=== PATIENT | female | born 1985 | race Caucasian/White ===

== ENCOUNTER 2021-04-06 06:55 | Inpatient (IN) | payer MEDICAID ==
[~2021-04-06] VITALS: Ht 165.1 cm; Wt 124.0 kg
[~2021-04-06 06:55] MED LIST: ATEN50TA; CHLO25TA; CLON0.5T PO; COLACE; SERT25TA84; TRAZ300T13; ZIPR60CA24; ZOFRAN
[2021-04-06] MEDS ORDERED: SODIUM CHLORIDE 0.9% 1,000 ML IV ONE ×2 (08:00)
[2021-04-06] MEDS ORDERED: CLINDAMYCIN 600MG IV 50 ML IV ONE (08:00)
[2021-04-06] MEDS ORDERED: cefTRIAXone 1GM/50ML D5W 50 ML IV ONE (08:00)
[2021-04-06 09:44] LABS: Urine WBC None Seen /hpf (0 - 5)
[2021-04-06 10:07] LABS: Urine Bacteria NONE SEEN /hpf (None Seen); Urine Blood Negative /uL (Negative); Urine Mucus FEW (None Seen); Urine Specific Gravity 1.019 (1.001-1.035)
[2021-04-06] MEDS ORDERED: PIPERACILLIN-TAZOB 3.375GM 100 ML IV ONE (12:15)
[2021-04-06] MEDS ORDERED: ONDANSETRON HCL 4 MG/2 ML VIAL IV ONE (13:15)
[2021-04-06 13:17] LABS: Basophils # (auto) 0 10 ^3/uL (0-0.2); Basophils % (auto) 0.5 % (0.0-2.0); Eosinophils # (auto) 0.3 10 ^3/uL (0-0.8); Eosinophils % (auto) 4.2 % (0.0-7.0); Hematocrit 29.6 % (36.0-46.0); Hemoglobin 9.9 g/dL (12.2-16.2); Lymphocytes # (auto) 1.3 10 ^3/uL (0.4-5.4); Lymphocytes % (auto) 18.4 % (10.0-50.0); Mean Corpuscular Hgb Conc. 33.3 g/dL (32.0-36.0); Mean Corpuscular Volume 87.1 fL (80.0-100.0); Monocytes # (auto) 0.7 10 ^3/uL (0-1.3); Monocytes % (auto) 10.1 % (0.0-12.0); Neutrophils # (auto) 4.6 10 ^3/uL (1.6-8.6); Neutrophils % (auto) 66.8 % (37.0-80.0); Nucleated Red Blood Cells % 0.1 %; Platelet Count (auto) 258 10^3/uL (140-450); Red Cell Distribution Width 16.6 % (11.8-14.3); White Blood Cell 6.9 10^3/uL (4.4-10.8)
[2021-04-06] MEDS ORDERED: MORPHINE SULF INJ 2 MG/ML SYRINGE 1ML ONE (13:20)
[2021-04-06] MEDS ORDERED: levoFLOXacin 500MG 100 ML IV ONE ×2 (13:21→13:30)
[2021-04-06] MEDS ORDERED: MORPHINE SULFATE 4 MG/ML SYR/VIAL IV ONE (13:30)
[2021-04-06 13:35] LABS: INR 1.1 (0.9-1.15); Partial Thromboplastin Time 27.9 sec (23.0-31.2)
[2021-04-06] MEDS ORDERED: PIPERACILLIN-TAZOB 3.375GM 100 ML IV SCH (14:00)
[2021-04-06 14:11] LABS: Potassium 3.9 mmol/L (3.5-5.1)
[2021-04-06 14:20] LABS: Albumin 2.9 g/dL (3.4-5.0); BUN/Creatinine Ratio 20.3; Bilirubin, Total 0.1 mg/dL (0.2-1.0); Calcium 8.7 mg/dL (8.5-10.1); Total Protein 6.5 g/dL (6.4-8.2)
[2021-04-06] MEDS ORDERED: IOHEXOL 300 MG/ML 100ML BOTTLE IJ ONE (14:36)
[2021-04-06] MEDS ORDERED: diphenhdrAMINE HCL 50 MG/1 ML VL IV ONE (15:00)
[2021-04-06] MEDS ORDERED: LORazepam 2MG/ML-1ML VIAL IV ONE ×2 (15:00→16:45)
[2021-04-06] MEDS ORDERED: MORPHINE SULF INJ 2 MG/ML SYRINGE 1ML IV PRN (16:00)
[2021-04-06] MEDS ORDERED: LORazepam 0.5 MG TAB PO PRN (16:00)
[2021-04-06] MEDS ORDERED: ACETAMINOPHEN 500 MG TAB PO PRN (16:00)
[2021-04-06] MEDS ORDERED: traMADol HCL 50 MG TAB PO PRN (16:00)
[2021-04-06] MEDS ORDERED: NITROGLYCERIN 0.4 MG SL TAB SL PRN (16:00)
[2021-04-06] MEDS: SODIUM CHLORIDE 0.9% 1,000 ML IV SCH (16:19)
[2021-04-06] MEDS ORDERED: LORazepam 2MG/ML-1ML VIAL ONE (16:35)
[2021-04-06] MEDS: ONDANSETRON HCL 4 MG/2 ML VIAL IV PRN (17:46)
[2021-04-06 22:00] VITALS: BP 138/65
[2021-04-06] MEDS: diphenhdrAMINE HCL 50 MG/1 ML VL IV PRN (22:01)
[2021-04-06] MEDS: CLINDAMYCIN 600MG IV 50 ML IV SCH (22:03)
[2021-04-06] MEDS: FAMOTIDINE 20 MG TAB PO SCH (22:03)
[2021-04-06] MEDS ORDERED: HYDROcodone-ACET 10/325MG TAB PO PRN ×2 (23:00→23:45)
[2021-04-07] MEDS ORDERED: diphenhdrAMINE HCL 50 MG/1 ML VL IV ONE
[2021-04-07] MEDS: MORPHINE SULF INJ 2 MG/ML SYRINGE 1ML IV PRN ×3 (00:03→10:24)
[2021-04-07] MEDS ORDERED: VALP250S19 PO (02:05)
[2021-04-07] MEDS ORDERED: HYDR-4902 PO (02:05)
[2021-04-07] MEDS ORDERED: DOXY100C2 PO (02:05)
[2021-04-07] MEDS ORDERED: QUET200T44 PO (02:05)
[2021-04-07] MEDS ORDERED: APIX5TAB PO (02:05)
[2021-04-07] MEDS ORDERED: PROP60CA34 PO (02:05)
[2021-04-07] MEDS ORDERED: BUSP15TA60 PO (02:05)
[2021-04-07] MEDS ORDERED: QUET400T12 PO (02:06)
[2021-04-07] MEDS ORDERED: BUDE1AER4 IN (02:06)
[2021-04-07] MEDS ORDERED: BACI-5 EX (02:06)
[2021-04-07] MEDS ORDERED: POLY33504 PO (02:06)
[2021-04-07] MEDS: SODIUM CHLORIDE 0.9% 1,000 ML IV SCH ×3 (02:13→22:00)
[2021-04-07] MEDS ORDERED: GABA-339 PO (02:36)
[2021-04-07] MEDS: diphenhdrAMINE HCL 50 MG/1 ML VL IV PRN ×4 (04:00→22:01)
[2021-04-07 05:00] VITALS: BP 119/62
[2021-04-07 05:08] LABS: Basophils # (auto) 0 10 ^3/uL (0-0.2); Basophils % (auto) 0.5 % (0.0-2.0); Eosinophils # (auto) 0.3 10 ^3/uL (0-0.8); Eosinophils % (auto) 4.3 % (0.0-7.0); Hematocrit 28.1 % (36.0-46.0); Hemoglobin 9.1 g/dL (12.2-16.2); Lymphocytes # (auto) 1.2 10 ^3/uL (0.4-5.4); Lymphocytes % (auto) 18.9 % (10.0-50.0); Mean Corpuscular Hemoglobin 28.3 pg (28.0-32.0); Mean Corpuscular Hgb Conc. 32.5 g/dL (32.0-36.0); Monocytes # (auto) 0.8 10 ^3/uL (0-1.3); Monocytes % (auto) 12.7 % (0.0-12.0); Neutrophils # (auto) 3.9 10 ^3/uL (1.6-8.6); Neutrophils % (auto) 63.6 % (37.0-80.0); Nucleated Red Blood Cells % 0.1 %; Platelet Count (auto) 237 10^3/uL (140-450); Red Blood Cells 3.23 10^6/uL (4.0-5.20); Red Cell Distribution Width 16.4 % (11.8-14.3); White Blood Cell 6.2 10^3/uL (4.4-10.8)
[2021-04-07 05:26] LABS: Albumin 2.9 g/dL (3.4-5.0); Calcium 8.2 mg/dL (8.5-10.1); Potassium 3.8 mmol/L (3.5-5.1)
[2021-04-07 05:30] LABS: BUN/Creatinine Ratio 23.8; Bilirubin, Total 0.1 mg/dL (0.2-1.0); Total Protein 5.9 g/dL (6.4-8.2)
[2021-04-07] MEDS: CLINDAMYCIN 600MG IV 50 ML IV SCH ×3 (05:54→22:01)
[2021-04-07 09:00] VITALS: BP 109/68
[2021-04-07] MEDS: FAMOTIDINE 20 MG TAB PO SCH ×2 (10:00→22:01)
[2021-04-07] MEDS: levoFLOXacin 500MG 100 ML IV SCH (10:25)
[2021-04-07 12:58] LABS: Alcohol, Urine < 3.0 mg/dL (0-10); Amphetamine Screen, Urine NEGATIVE (NEGATIVE); Barbiturate Scree,Urine NEGATIVE (NEGATIVE); Benzodiazephine Screen, Urine NEGATIVE (NEGATIVE); Cannabinoid Screen, Urine NEGATIVE (NEGATIVE); Cocaine Screen, Urine NEGATIVE (NEGATIVE); Opiate Scree,Urine POSITIVE (NEGATIVE); Phencyclidine Screen, Urine NEGATIVE (NEGATIVE)
[2021-04-07 13:00] VITALS: BP 123/69
[2021-04-07] MEDS: HYDROmorphone HCL 2 MG/ML VL IV PRN ×2 (13:28→19:45)
[2021-04-07 17:00] VITALS: BP 119/62
[2021-04-07 22:00] VITALS: BP 120/73
[2021-04-07] MEDS: MUPIROCIN 2% OINT 15gm or 22gm EACHNOSTRI SCH (22:00)
[2021-04-08] MEDS: HYDROmorphone HCL 2 MG/ML VL IV PRN ×5 (03:04→23:57)
[2021-04-08] MEDS: diphenhdrAMINE HCL 50 MG/1 ML VL IV PRN ×4 (04:58→23:58)
[2021-04-08 05:00] VITALS: BP 135/72
[2021-04-08] MEDS: SODIUM CHLORIDE 0.9% 1,000 ML IV SCH ×2 (05:05→17:37)
[2021-04-08] MEDS: CLINDAMYCIN 600MG IV 50 ML IV SCH ×3 (06:06→21:34)
[2021-04-08 09:00] VITALS: BP 132/83
[2021-04-08] MEDS: levoFLOXacin 500MG 100 ML IV SCH (09:16)
[2021-04-08] MEDS: FAMOTIDINE 20 MG TAB PO SCH ×2 (09:19→21:36)
[2021-04-08] MEDS: MUPIROCIN 2% OINT 15gm or 22gm EACHNOSTRI SCH ×2 (09:26→21:36)
[2021-04-08] MEDS ORDERED: OME20GT PO (09:31)
[2021-04-08] MEDS: ONDANSETRON HCL 4 MG/2 ML VIAL IV PRN (11:32)
[2021-04-08] MEDS ORDERED: APIXABAN 5 MG TAB PO ONE (11:45)
[2021-04-08 13:00] VITALS: BP 116/76
[2021-04-08] MEDS: QUEtiapine FUMARATE 100 MG TAB PO SCH ×2 (13:02→21:35)
[2021-04-08] MEDS: busPIRone HCL 10 MG TAB PO SCH ×2 (14:27→21:35)
[2021-04-08 17:00] VITALS: BP 131/75
[2021-04-08] MEDS: VALPROIC ACID 250 MG/5 ML ORAL SOLN PO SCH (21:34)
[2021-04-08] MEDS: DOCUSATE SOD 100 MG CAP PO SCH (21:35)
[2021-04-08] MEDS: APIXABAN 5 MG TAB PO SCH (21:36)
[2021-04-08 22:00] VITALS: BP 147/75
[2021-04-09] MEDS: SODIUM CHLORIDE 0.9% 1,000 ML IV SCH ×2 (04:05→13:53)
[2021-04-09] MEDS: HYDROmorphone HCL 2 MG/ML VL IV PRN ×5 (04:43→22:19)
[2021-04-09 05:00] VITALS: BP 144/67
[2021-04-09] MEDS: CLINDAMYCIN 600MG IV 50 ML IV SCH ×3 (05:50→21:45)
[2021-04-09] MEDS: busPIRone HCL 10 MG TAB PO SCH ×3 (05:50→21:46)
[2021-04-09] MEDS: diphenhdrAMINE HCL 50 MG/1 ML VL IV PRN ×3 (05:50→19:29)
[2021-04-09] MEDS: levoFLOXacin 500MG 100 ML IV SCH (09:46)
[2021-04-09] MEDS: DOCUSATE SOD 100 MG CAP PO SCH ×2 (09:46→21:46)
[2021-04-09] MEDS: MUPIROCIN 2% OINT 15gm or 22gm EACHNOSTRI SCH ×2 (09:46→21:47)
[2021-04-09] MEDS: VALPROIC ACID 250 MG/5 ML ORAL SOLN PO SCH ×2 (09:47→21:45)
[2021-04-09] MEDS: QUEtiapine FUMARATE 100 MG TAB PO SCH ×2 (09:47→21:45)
[2021-04-09] MEDS: FAMOTIDINE 20 MG TAB PO SCH ×2 (09:47→21:46)
[2021-04-09] MEDS: APIXABAN 5 MG TAB PO SCH ×2 (09:47→21:46)
[2021-04-09 13:00] VITALS: BP 135/66
[2021-04-09 17:00] VITALS: BP 141/88
[2021-04-09 22:00] VITALS: BP 117/66
[2021-04-10] MEDS: SODIUM CHLORIDE 0.9% 1,000 ML IV SCH ×2 (00:07→10:00)
[2021-04-10] MEDS: diphenhdrAMINE HCL 50 MG/1 ML VL IV PRN ×2 (01:28→08:10)
[2021-04-10] MEDS: HYDROmorphone HCL 2 MG/ML VL IV PRN ×3 (02:25→10:35)
[2021-04-10] MEDS ORDERED: TEMAZEPAM 15 MG CAP PO ONE (03:45)
[2021-04-10 05:00] VITALS: BP 118/68
[2021-04-10] MEDS: CLINDAMYCIN 600MG IV 50 ML IV SCH (06:03)
[2021-04-10] MEDS: busPIRone HCL 10 MG TAB PO SCH (06:03)
[2021-04-10 09:00] VITALS: BP 129/72
[2021-04-10] MEDS: DOCUSATE SOD 100 MG CAP PO SCH (10:34)
[2021-04-10] MEDS: VALPROIC ACID 250 MG/5 ML ORAL SOLN PO SCH (10:34)
[2021-04-10] MEDS: APIXABAN 5 MG TAB PO SCH (10:34)
[2021-04-10] MEDS: MUPIROCIN 2% OINT 15gm or 22gm EACHNOSTRI SCH (10:34)
[2021-04-10] MEDS: levoFLOXacin 500MG 100 ML IV SCH (10:34)
[2021-04-10] MEDS: QUEtiapine FUMARATE 100 MG TAB PO SCH (10:35)
[2021-04-10] MEDS: FAMOTIDINE 20 MG TAB PO SCH (10:35)
[2021-04-10 13:00] VITALS: BP 111/66
[2021-04-10 13:42] VITALS: BP 111/66
== END 2021-04-10 14:08 | disposition home or self-care (01) | DRG 383 ==
LOC: ER 06:55 → TELE 15:56 → TELE-WESTW 19:55
PROVIDERS: ADMIT Internal Medicine; ATTEND Family Medicine
PROC: 06HY33Z Insertion of Infusion Device into Lower Vein, Percutaneous Approach (ICD-10-PCS; principal; 2021-04-06)
DX: L03.114 Cellulitis of left upper limb (principal); E66.01 Morbid (severe) obesity due to excess calories; F25.9 Schizoaffective disorder, unspecified; F31.9 Bipolar disorder, unspecified; L02.414 Cutaneous abscess of left upper limb; D64.9 Anemia, unspecified; F43.10 Post-traumatic stress disorder, unspecified; Z91.5 Personal history of self-harm; Z68.41 Body mass index [BMI] 40.0-44.9, adult; Z20.822 Contact with and (suspected) exposure to COVID-19; Z88.1 Allergy status to other antibiotic agents; Z88.8 Allergy status to other drugs, medicaments and biological substances; Z82.49 Family history of ischemic heart disease and other diseases of the circulatory system; Z82.5 Family history of asthma and other chronic lower respiratory diseases; F41.9 Anxiety disorder, unspecified; Z83.3 Family history of diabetes mellitus; Z81.1 Family history of alcohol abuse and dependence; F17.210 Nicotine dependence, cigarettes, uncomplicated; Z79.01 Long term (current) use of anticoagulants; Z82.0 Family history of epilepsy and other diseases of the nervous system; Z86.718 Personal history of other venous thrombosis and embolism; F60.3 Borderline personality disorder; G47.00 Insomnia, unspecified; Z90.49 Acquired absence of other specified parts of digestive tract; Z71.6 Tobacco abuse counseling; B95.62 Methicillin resistant Staphylococcus aureus infection as the cause of diseases classified elsewhere
CPT/HCPCS: 36415; 36556; 71045; 73201; 74018; 76881; 80053; 80307; 81001; 83605; 85025; 85610; 85652; 85730; 87040; 87081; 87426; 96361; 96365; 96375; G0378; J0696; J1956; J2405; J3490

== ENCOUNTER 2021-04-24 21:30 | Emergency (ER) | payer MEDICAID ==
[~2021-04-24] VITALS: Ht 165.1 cm; Wt 127.9 kg
[~2021-04-24 21:30] MED LIST changes: +APIX5TAB PO; -ATEN50TA; +BACI-5 EX; +BUDE1AER4 IN; +BUSP15TA60 PO; -CHLO25TA; +DOXY100C2 PO; +GABA-339 PO; +HYDR-4902 PO; +OME20GT PO; +POLY33504 PO; +PROP60CA34 PO; +QUET200T44 PO; +QUET400T12 PO; -SERT25TA84; +VALP250S19 PO; -ZIPR60CA24; -ZOFRAN
[2021-04-25] MEDS ORDERED: HYDROcodone-ACET 7.5/325MG TAB PO ONE (03:00)
[2021-04-25 03:56] LABS: Basophils # (auto) 0.1 10 ^3/uL (0-0.2); Basophils % (auto) 1.1 % (0.0-2.0); Eosinophils # (auto) 0.2 10 ^3/uL (0-0.8); Eosinophils % (auto) 3.1 % (0.0-7.0); Hematocrit 34.3 % (36.0-46.0); Hemoglobin 11.5 g/dL (12.2-16.2); Lymphocytes # (auto) 1.2 10 ^3/uL (0.4-5.4); Lymphocytes % (auto) 17.1 % (10.0-50.0); Mean Corpuscular Hemoglobin 28.7 pg (28.0-32.0); Mean Corpuscular Hgb Conc. 33.4 g/dL (32.0-36.0); Monocytes # (auto) 0.5 10 ^3/uL (0-1.3); Monocytes % (auto) 6.8 % (0.0-12.0); Neutrophils # (auto) 5.1 10 ^3/uL (1.6-8.6); Neutrophils % (auto) 71.9 % (37.0-80.0); Platelet Count (auto) 337 10^3/uL (140-450); Red Blood Cells 3.99 10^6/uL (4.0-5.20); Red Cell Distribution Width 16.2 % (11.8-14.3); White Blood Cell 7.1 10^3/uL (4.4-10.8)
[2021-04-25 04:05] LABS: INR 0.92 (0.9-1.15)
[2021-04-25 04:13] LABS: Albumin 3.8 g/dL (3.4-5.0); Magnesium 2.4 mg/dL (1.6-2.6); Potassium 4.7 mmol/L (3.5-5.1)
[2021-04-25 04:17] LABS: BUN/Creatinine Ratio 31.5; Bilirubin, Total 0.2 mg/dL (0.2-1.0); Total Protein 7.8 g/dL (6.4-8.2)
[2021-04-25] MEDS ORDERED: VANCOMYCIN 1GM/250ML 250 ML IV ONE (06:45)
[2021-04-25] MEDS ORDERED: ONDANSETRON HCL 4 MG/2 ML VIAL IV ONE ×2 (06:45→14:15)
[2021-04-25] MEDS ORDERED: MORPHINE SULFATE 4 MG/ML SYR/VIAL IV ONE ×2 (08:00→14:15)
[2021-04-25 08:09] LABS: Urine Bacteria NONE SEEN /hpf (None Seen); Urine Blood Negative /uL (Negative); Urine Specific Gravity 1.006 (1.001-1.035); Urine WBC <1 /hpf (0 - 5)
[2021-04-25] MEDS ORDERED: DIVA500T2 PO (08:55)
[2021-04-25] MEDS ORDERED: diphenhdrAMINE HCL 50 MG/1 ML VL IV ONE (09:45)
[2021-04-25] MEDS ORDERED: LORazepam 2MG/ML-1ML VIAL IV ONE (09:45)
[2021-04-25 17:04] VITALS: BP 126/73
== END 2021-04-25 17:37 | disposition short-term general hospital (02) ==
LOC: ER 21:31
DX: L98.499 Non-pressure chronic ulcer of skin of other sites with unspecified severity (principal); L03.114 Cellulitis of left upper limb; F17.210 Nicotine dependence, cigarettes, uncomplicated; Z79.899 Other long term (current) drug therapy; Z88.1 Allergy status to other antibiotic agents; Z88.8 Allergy status to other drugs, medicaments and biological substances; Z20.822 Contact with and (suspected) exposure to COVID-19
CPT/HCPCS: 36415; 36556; 73200; 80053; 81001; 83605; 83735; 85025; 85610; 87040; 87426; 96365; 96366; 96375; 96376; 99285; J1200; J2060; J2270; J2405; J3370

== ENCOUNTER 2021-08-21 22:22 | Emergency (ER) | payer MEDICAID ==
[~2021-08-21] VITALS: Ht 165.1 cm; Wt 149.7 kg
[~2021-08-21 22:22] MED LIST changes: +DIVA500T2 PO; -QUET200T44 PO; +QUET200T45 PO; -QUET400T12 PO; +QUET400T13 PO
[2021-08-21 23:04] VITALS: BP 121/73
== END 2021-08-21 23:20 | disposition left against medical advice (07) ==
LOC: ER 22:24
DX: R10.31 Right lower quadrant pain (principal); Z53.21 Procedure and treatment not carried out due to patient leaving prior to being seen by health care provider

== ENCOUNTER 2021-11-05 21:09 | Emergency (ER) | payer MEDICAID ==
[~2021-11-05] VITALS: Ht 165.1 cm; Wt 149.7 kg
[2021-11-05 21:09] VITALS: BP 155/70
== END 2021-11-06 01:42 | disposition left against medical advice (07) ==
LOC: ER 21:10
DX: T18.8XXA Foreign body in other parts of alimentary tract, initial encounter (principal); Z53.21 Procedure and treatment not carried out due to patient leaving prior to being seen by health care provider

== ENCOUNTER 2021-11-10 19:13 | Emergency (ER) | payer MEDICAID ==
[~2021-11-10] VITALS: Ht 162.6 cm; Wt 136.1 kg
[2021-11-10] MEDS ORDERED: MORPHINE SULFATE 4 MG/ML SYR/VIAL IV ONE (21:30)
[2021-11-10] MEDS ORDERED: ONDANSETRON HCL 4 MG/2 ML VIAL IV ONE (21:30)
[2021-11-10 22:56] LABS: Basophils # (auto) 0.1 10 ^3/uL (0-0.2); Basophils % (auto) 0.8 % (0.0-2.0); Eosinophils # (auto) 0.4 10 ^3/uL (0-0.8); Eosinophils % (auto) 4.7 % (0.0-7.0); Hematocrit 33.2 % (36.0-46.0); Hemoglobin 11.1 g/dL (12.2-16.2); Lymphocytes # (auto) 1.1 10 ^3/uL (0.4-5.4); Lymphocytes % (auto) 13.1 % (10.0-50.0); Mean Corpuscular Hemoglobin 30.2 pg (28.0-32.0); Mean Corpuscular Hgb Conc. 33.6 g/dL (32.0-36.0); Mean Corpuscular Volume 89.9 fL (80.0-100.0); Monocytes # (auto) 0.6 10 ^3/uL (0-1.3); Monocytes % (auto) 7.2 % (0.0-12.0); Neutrophils # (auto) 6.2 10 ^3/uL (1.6-8.6); Neutrophils % (auto) 74.2 % (37.0-80.0); Nucleated Red Blood Cells % 0.1 %; Red Blood Cells 3.69 10^6/uL (4.0-5.20); White Blood Cell 8.4 10^3/uL (4.4-10.8)
[2021-11-10 23:03] LABS: Albumin 3.8 g/dL (3.4-5.0); Calcium 8.9 mg/dL (8.5-10.1); Potassium 3.8 mmol/L (3.5-5.1)
[2021-11-10 23:08] LABS: Bilirubin, Total 0.2 mg/dL (0.2-1.0); Total Protein 7.9 g/dL (6.4-8.2)
[2021-11-11 00:13] LABS: INR 0.95 (0.9-1.15)
[2021-11-11] MEDS ORDERED: ONDANSETRON HCL 4 MG/2 ML VIAL IV ONE (04:45)
[2021-11-11] MEDS ORDERED: fentaNYL CITRATE 100 MCG/2 ML VL IV ONE (04:45)
[2021-11-11 05:59] VITALS: BP 164/86
== END 2021-11-11 06:28 | disposition short-term general hospital (02) ==
LOC: EDBD 19:13 → ER 19:13
DX: T18.9XXA Foreign body of alimentary tract, part unspecified, initial encounter (principal); F32.9 Major depressive disorder, single episode, unspecified; F41.9 Anxiety disorder, unspecified; J45.909 Unspecified asthma, uncomplicated; M54.2 Cervicalgia; R94.31 Abnormal electrocardiogram [ECG] [EKG]; Y08.89XA Assault by other specified means, initial encounter; Y93.89 Activity, other specified; Y92.89 Other specified places as the place of occurrence of the external cause; Y99.8 Other external cause status
CPT/HCPCS: 36415; 70490; 71045; 74176; 80053; 83605; 83690; 83735; 84702; 85025; 85610; 87426; 93005; 96374; 96375; 96376; 99285; J2270; J2405; J3010

== ENCOUNTER 2022-01-02 02:20 | Emergency (ER) | payer MEDICAID ==
[~2022-01-02] VITALS: Ht 165.1 cm; Wt 127.0 kg
[2022-01-02 04:02] LABS: Hemoglobin 12.9 g/dL (12.2-16.2); Red Blood Cells 4.37 10^6/uL (4.0-5.20); Red Cell Distribution Width 15.6 % (11.8-14.3); White Blood Cell 10.3 10^3/uL (4.4-10.8)
[2022-01-02 04:05] LABS: Basophils # (auto) 0.1 10 ^3/uL (0-0.2); Basophils % (auto) 0.8 % (0.0-2.0); Eosinophils # (auto) 0.2 10 ^3/uL (0-0.8); Eosinophils % (auto) 1.5 % (0.0-7.0); Hematocrit 39.2 % (36.0-46.0); Lymphocytes # (auto) 1.6 10 ^3/uL (0.4-5.4); Lymphocytes % (auto) 15.7 % (10.0-50.0); Mean Corpuscular Hemoglobin 29.6 pg (28.0-32.0); Mean Corpuscular Volume 89.6 fL (80.0-100.0); Monocytes # (auto) 0.6 10 ^3/uL (0-1.3); Monocytes % (auto) 5.9 % (0.0-12.0); Neutrophils # (auto) 7.8 10 ^3/uL (1.6-8.6); Neutrophils % (auto) 76.1 % (37.0-80.0); Nucleated Red Blood Cells % 0.1 %
[2022-01-02 04:13] LABS: Acetaminophen < 2.0 ug/mL (10-30); Salicylate 2.9 mg/dL (2.8-20.0)
[2022-01-02 04:14] LABS: Albumin 3.8 g/dL (3.4-5.0); BUN/Creatinine Ratio 24.6; Calcium 9.3 mg/dL (8.5-10.1); Magnesium 2.1 mg/dL (1.6-2.6)
[2022-01-02 04:17] LABS: Bilirubin, Total 0.2 mg/dL (0.2-1.0); Total Protein 7.9 g/dL (6.4-8.2)
[2022-01-02] MEDS ORDERED: LACTULOSE 20Gm/30ML SOLN PO ONE (06:15)
[2022-01-02 08:08] LABS: Urine Bacteria FEW /hpf (None Seen); Urine Blood Negative /uL (Negative); Urine Mucus FEW (None Seen); Urine Specific Gravity 1.021 (1.001-1.035); Urine WBC 1 /hpf (0 - 5)
[2022-01-02 12:03] LABS: Valproic Acid (Depakene) 55 ug/mL (50-100)
[2022-01-02 12:16] LABS: Acetaminophen < 2.0 ug/mL (10-30)
[2022-01-02 14:00] VITALS: BP 119/93
== END 2022-01-02 14:28 | disposition home or self-care (01) ==
LOC: EDBD 02:20 → ER 02:20
DX: T39.312A Poisoning by propionic acid derivatives, intentional self-harm, initial encounter (principal); R45.851 Suicidal ideations; K72.90 Hepatic failure, unspecified without coma; F17.210 Nicotine dependence, cigarettes, uncomplicated; J45.909 Unspecified asthma, uncomplicated; F32.9 Major depressive disorder, single episode, unspecified; Y92.89 Other specified places as the place of occurrence of the external cause
CPT/HCPCS: 36415; 71045; 80053; 80164; 80320; 80329; 81001; 82140; 83735; 85025; 93005

== ENCOUNTER 2022-01-24 04:28 | Emergency (ER) | payer MEDICAID ==
[~2022-01-24] VITALS: Ht 165.1 cm; Wt 158.8 kg
[2022-01-24 05:00] VITALS: BP 151/90
[2022-01-24 06:17] LABS: Urine Bacteria NONE SEEN /hpf (None Seen); Urine Blood Negative /uL (Negative); Urine Specific Gravity 1.018 (1.001-1.035); Urine WBC 6 /hpf (0 - 5)
== END 2022-01-24 07:02 | disposition left against medical advice (07) ==
LOC: ER 04:28
DX: R10.12 Left upper quadrant pain (principal); R10.11 Right upper quadrant pain; Z53.21 Procedure and treatment not carried out due to patient leaving prior to being seen by health care provider
CPT/HCPCS: 36415; 81001

== ENCOUNTER 2022-01-27 22:50 | Emergency (ER) | payer MEDICAID ==
[~2022-01-27] VITALS: Ht 165.1 cm; Wt 154.2 kg
[2022-01-28 00:58] LABS: Basophils # (auto) 0.1 10 ^3/uL (0-0.2); Basophils % (auto) 0.5 % (0.0-2.0); Eosinophils # (auto) 0.3 10 ^3/uL (0-0.8); Eosinophils % (auto) 2.3 % (0.0-7.0); Hematocrit 31.7 % (36.0-46.0); Hemoglobin 10.4 g/dL (12.2-16.2); Lymphocytes # (auto) 1.7 10 ^3/uL (0.4-5.4); Lymphocytes % (auto) 14.7 % (10.0-50.0); Mean Corpuscular Hemoglobin 29.6 pg (28.0-32.0); Mean Corpuscular Hgb Conc. 32.6 g/dL (32.0-36.0); Mean Corpuscular Volume 90.6 fL (80.0-100.0); Monocytes # (auto) 0.7 10 ^3/uL (0-1.3); Monocytes % (auto) 6.2 % (0.0-12.0); Neutrophils % (auto) 76.3 % (37.0-80.0); Nucleated Red Blood Cells % 0.1 %; Red Cell Distribution Width 15.6 % (11.8-14.3); White Blood Cell 11.7 10^3/uL (4.4-10.8)
[2022-01-28] MEDS ORDERED: NALOXONE HCL 1MG/ML 2ML SYRINGE ONE (01:04)
[2022-01-28 01:23] LABS: Alanine Aminotransferase 27 U/L (13-56); Albumin 3.3 g/dL (3.4-5.0); Anion Gap 5 (5-15); Aspartate Aminotransferase 21 U/L (15-37); Blood Alcohol < 3.0 mg/dL (0-5); Blood Urea Nitrogen 20 mg/dL (7-18); Calcium 8.5 mg/dL (8.5-10.1); Carbon Dioxide 26 mmol/L (21-32); Chloride 110 mmol/L (98-107); GFR African American 125 mL/min; GFR Non-African American 104 mL/min; Glucose 95 mg/dL (74-106); Lipase 42 U/L (73-393); Magnesium 2.2 mg/dL (1.6-2.6); Potassium 3.9 mmol/L (3.5-5.1); Sodium 141 mmol/L (136-145)
[2022-01-28 01:25] LABS: Alkaline Phosphatase 73 U/L (45-117); Bilirubin, Total 0.5 mg/dL (0.2-1.0); Total Protein 6.9 g/dL (6.4-8.2)
[2022-01-28 01:27] LABS: Acetaminophen < 2.0 ug/mL (10-30); Salicylate < 1.7 mg/dL (2.8-20.0)
[2022-01-28 04:45] VITALS: BP 102/50
== END 2022-01-28 04:55 | disposition home or self-care (01) ==
LOC: ER 22:50
DX: F11.10 Opioid abuse, uncomplicated (principal); E66.9 Obesity, unspecified; F17.210 Nicotine dependence, cigarettes, uncomplicated; F12.10 Cannabis abuse, uncomplicated; J45.909 Unspecified asthma, uncomplicated; F32.9 Major depressive disorder, single episode, unspecified; Z68.43 Body mass index [BMI] 50.0-59.9, adult
CPT/HCPCS: 36415; 80053; 80320; 80329; 83605; 83690; 83735; 85025; 93005; 99285; J2310

== ENCOUNTER 2022-01-28 14:21 | Emergency (ER) | payer MEDICAID ==
[~2022-01-28] VITALS: Ht 165.1 cm; Wt 156.0 kg
[2022-01-28 18:44] LABS: Basophils # (auto) 0.1 10 ^3/uL (0-0.2); Basophils % (auto) 0.7 % (0.0-2.0); Eosinophils # (auto) 0.3 10 ^3/uL (0-0.8); Eosinophils % (auto) 2.6 % (0.0-7.0); Hematocrit 34.6 % (36.0-46.0); Hemoglobin 11.3 g/dL (12.2-16.2); Lymphocytes # (auto) 1.2 10 ^3/uL (0.4-5.4); Lymphocytes % (auto) 9.7 % (10.0-50.0); Mean Corpuscular Hemoglobin 30.1 pg (28.0-32.0); Mean Corpuscular Hgb Conc. 32.8 g/dL (32.0-36.0); Mean Corpuscular Volume 91.6 fL (80.0-100.0); Monocytes # (auto) 0.8 10 ^3/uL (0-1.3); Monocytes % (auto) 6.1 % (0.0-12.0); Neutrophils # (auto) 10.2 10 ^3/uL (1.6-8.6); Neutrophils % (auto) 80.9 % (37.0-80.0); Nucleated Red Blood Cells % 0.1 %; Red Blood Cells 3.77 10^6/uL (4.0-5.20); Red Cell Distribution Width 15.6 % (11.8-14.3); White Blood Cell 12.6 10^3/uL (4.4-10.8)
[2022-01-28 18:59] LABS: Potassium 4.5 mmol/L (3.5-5.1)
[2022-01-28 19:03] LABS: Albumin 3.7 g/dL (3.4-5.0); BUN/Creatinine Ratio 25.3; Calcium 8.9 mg/dL (8.5-10.1); Salicylate 1.8 mg/dL (2.8-20.0)
[2022-01-28 19:06] LABS: Bilirubin, Total 0.3 mg/dL (0.2-1.0); Total Protein 7.5 g/dL (6.4-8.2)
[2022-01-28 19:31] LABS: Acetaminophen < 2.0 ug/mL (10-30)
[2022-01-29 05:59] LABS: Urine Bacteria FEW /hpf (None Seen); Urine Blood Negative /uL (Negative); Urine Mucus FEW (None Seen); Urine Specific Gravity 1.016 (1.001-1.035); Urine WBC 15 /hpf (0 - 5)
[2022-01-29 06:30] LABS: Alcohol, Urine < 3.0 mg/dL (0-10); Amphetamine Screen, Urine NEGATIVE (NEGATIVE); Cannabinoid Screen, Urine NEGATIVE (NEGATIVE)
[2022-01-29 06:40] LABS: Barbiturate Scree,Urine NEGATIVE (NEGATIVE); Benzodiazephine Screen, Urine POSITIVE (NEGATIVE); Cocaine Screen, Urine NEGATIVE (NEGATIVE); Opiate Scree,Urine NEGATIVE (NEGATIVE); Phencyclidine Screen, Urine NEGATIVE (NEGATIVE)
[2022-01-29 08:30] VITALS: BP 110/52
== END 2022-01-29 10:39 | disposition left against medical advice (07) ==
LOC: ER 14:21
DX: T50.992A Poisoning by other drugs, medicaments and biological substances, intentional self-harm, initial encounter (principal); R10.9 Unspecified abdominal pain; R45.87 Impulsiveness; F17.210 Nicotine dependence, cigarettes, uncomplicated; F12.10 Cannabis abuse, uncomplicated; J45.909 Unspecified asthma, uncomplicated; F41.9 Anxiety disorder, unspecified; F32.9 Major depressive disorder, single episode, unspecified; Z88.0 Allergy status to penicillin; Z88.6 Allergy status to analgesic agent; Z20.822 Contact with and (suspected) exposure to COVID-19; Y92.89 Other specified places as the place of occurrence of the external cause
CPT/HCPCS: 36415; 71045; 74176; 80053; 80307; 80329; 81001; 81025; 84702; 85025

== ENCOUNTER 2022-01-30 20:36 | Emergency (ER) | payer MEDICAID ==
[~2022-01-30] VITALS: Ht 170.2 cm; Wt 113.4 kg
[2022-01-30] MEDS ORDERED: HALOPERIDOL LACTATE 5 MG/ML INJ VIAL ONE ×2 (21:31→22:01)
[2022-01-30] MEDS ORDERED: LORazepam 2MG/ML-1ML VIAL ONE (21:32)
[2022-01-30] MEDS ORDERED: diphenhdrAMINE HCL 50 MG/1 ML VL ONE (21:32)
[2022-01-30 21:49] LABS: Basophils # (auto) 0.1 10 ^3/uL (0-0.2); Basophils % (auto) 0.9 % (0.0-2.0); Eosinophils # (auto) 0.5 10 ^3/uL (0-0.8); Eosinophils % (auto) 4.2 % (0.0-7.0); Hematocrit 34.8 % (36.0-46.0); Hemoglobin 11.5 g/dL (12.2-16.2); Lymphocytes # (auto) 1.3 10 ^3/uL (0.4-5.4); Lymphocytes % (auto) 10.7 % (10.0-50.0); Mean Corpuscular Hemoglobin 29.5 pg (28.0-32.0); Mean Corpuscular Volume 89.5 fL (80.0-100.0); Monocytes # (auto) 0.9 10 ^3/uL (0-1.3); Monocytes % (auto) 7.8 % (0.0-12.0); Neutrophils # (auto) 9.1 10 ^3/uL (1.6-8.6); Neutrophils % (auto) 76.4 % (37.0-80.0); Nucleated Red Blood Cells % 0.1 %; Red Blood Cells 3.88 10^6/uL (4.0-5.20); Red Cell Distribution Width 15.2 % (11.8-14.3); White Blood Cell 11.9 10^3/uL (4.4-10.8)
[2022-01-30 21:57] LABS: Albumin 3.7 g/dL (3.4-5.0); Calcium 8.7 mg/dL (8.5-10.1); Potassium 3.7 mmol/L (3.5-5.1)
[2022-01-30 22:00] LABS: BUN/Creatinine Ratio 15.5; Bilirubin, Total 0.2 mg/dL (0.2-1.0); Total Protein 7.7 g/dL (6.4-8.2)
[2022-01-30 22:03] LABS: Acetaminophen < 2.0 ug/mL (10-30)
[2022-01-30 22:05] LABS: Urine Bacteria NONE SEEN /hpf (None Seen); Urine Blood Negative /uL (Negative); Urine Specific Gravity 1.005 (1.001-1.035); Urine WBC <1 /hpf (0 - 5)
[2022-01-30] MEDS ORDERED: HALOPERIDOL LACTATE 5 MG/ML INJ VIAL IM ONE ×2 (22:15)
[2022-01-30] MEDS ORDERED: diphenhdrAMINE HCL 50 MG/1 ML VL IV ONE (22:15)
[2022-01-30] MEDS ORDERED: LORazepam 2MG/ML-1ML VIAL IV ONE (22:15)
[2022-01-30 22:19] LABS: Alcohol, Urine < 3.0 mg/dL (0-10); Amphetamine Screen, Urine NEGATIVE (NEGATIVE); Barbiturate Scree,Urine NEGATIVE (NEGATIVE); Benzodiazephine Screen, Urine NEGATIVE (NEGATIVE); Cannabinoid Screen, Urine NEGATIVE (NEGATIVE); Cocaine Screen, Urine NEGATIVE (NEGATIVE); Opiate Scree,Urine NEGATIVE (NEGATIVE); Phencyclidine Screen, Urine NEGATIVE (NEGATIVE)
[2022-01-31 08:37] VITALS: BP 143/109
== END 2022-01-31 09:22 | disposition left against medical advice (07) ==
LOC: EDBD 20:36 → ER 20:41
DX: R45.851 Suicidal ideations (principal); J45.909 Unspecified asthma, uncomplicated; F32.9 Major depressive disorder, single episode, unspecified; F20.9 Schizophrenia, unspecified; F17.210 Nicotine dependence, cigarettes, uncomplicated; Z79.899 Other long term (current) drug therapy; Z79.2 Long term (current) use of antibiotics; Z88.1 Allergy status to other antibiotic agents; Z88.8 Allergy status to other drugs, medicaments and biological substances
CPT/HCPCS: 36415; 80053; 80307; 80329; 81001; 85025; 93005; 96372; 96374; 96375; 99285; J1200; J1630; J2060

== ENCOUNTER 2022-02-07 21:44 | Emergency (ER) | payer MEDICAID ==
[~2022-02-07] VITALS: Ht 165.1 cm; Wt 136.1 kg
[2022-02-07 22:00] VITALS: BP 149/84
== END 2022-02-08 02:32 | disposition left against medical advice (07) ==
LOC: EDBD 21:44 → ER 21:45
DX: R10.9 Unspecified abdominal pain (principal); Z53.21 Procedure and treatment not carried out due to patient leaving prior to being seen by health care provider

== ENCOUNTER 2022-03-25 00:49 | Emergency (ER) | payer MEDICAID ==
[~2022-03-25] VITALS: Ht 165.1 cm; Wt 149.7 kg
[2022-03-25 00:58] VITALS: BP 178/89
== END 2022-03-25 02:30 | disposition left against medical advice (07) ==
LOC: ER 00:51
DX: R42 Dizziness and giddiness (principal); R53.1 Weakness; Z53.21 Procedure and treatment not carried out due to patient leaving prior to being seen by health care provider

== ENCOUNTER 2022-04-11 23:27 | Emergency (ER) | payer MEDICAID ==
[~2022-04-11] VITALS: Ht 172.7 cm; Wt 154.2 kg
[2022-04-11] MEDS ORDERED: NALOXONE HCL 1MG/ML 2ML SYRINGE ONE (23:30)
[2022-04-12] MEDS ORDERED: NALOXONE HCL 1MG/ML 2ML SYRINGE IV ONE
[2022-04-12 00:02] LABS: Basophils # (auto) 0.1 10 ^3/uL (0-0.2); Basophils % (auto) 0.5 % (0.0-2.0); Eosinophils # (auto) 0.2 10 ^3/uL (0-0.8); Hematocrit 36.2 % (36.0-46.0); Hemoglobin 12.1 g/dL (12.2-16.2); Lymphocytes # (auto) 1.6 10 ^3/uL (0.4-5.4); Lymphocytes % (auto) 14.1 % (10.0-50.0); Mean Corpuscular Hemoglobin 29.9 pg (28.0-32.0); Mean Corpuscular Hgb Conc. 33.3 g/dL (32.0-36.0); Monocytes # (auto) 0.5 10 ^3/uL (0-1.3); Monocytes % (auto) 4.5 % (0.0-12.0); Neutrophils % (auto) 78.9 % (37.0-80.0); Nucleated Red Blood Cells % 0.2 %; Red Blood Cells 4.03 10^6/uL (4.0-5.20); Red Cell Distribution Width 14.1 % (11.8-14.3); White Blood Cell 11.3 10^3/uL (4.4-10.8)
[2022-04-12 00:21] LABS: Acetaminophen < 2.0 ug/mL (10-30); Salicylate < 1.7 mg/dL (2.8-20.0)
[2022-04-12] MEDS ORDERED: LORazepam 2MG/ML-1ML VIAL ONE (00:56)
[2022-04-12 01:00] VITALS: BP 153/81
[2022-04-12] MEDS ORDERED: LORazepam 2MG/ML-1ML VIAL IV ONE (01:00)
[2022-04-12 01:16] LABS: Amphetamine Screen, Urine NEGATIVE (NEGATIVE); Barbiturate Scree,Urine NEGATIVE (NEGATIVE); Benzodiazephine Screen, Urine POSITIVE (NEGATIVE); Cannabinoid Screen, Urine NEGATIVE (NEGATIVE); Cocaine Screen, Urine NEGATIVE (NEGATIVE); Opiate Scree,Urine POSITIVE (NEGATIVE); Phencyclidine Screen, Urine NEGATIVE (NEGATIVE)
[2022-04-12] MEDS ORDERED: IOHEXOL 300 MG/ML 100ML BOTTLE IJ ONE (01:32)
== END 2022-04-12 01:59 | disposition left against medical advice (07) ==
LOC: ER 23:27
DX: T40.2X2A Poisoning by other opioids, intentional self-harm, initial encounter (principal); J45.909 Unspecified asthma, uncomplicated; F17.210 Nicotine dependence, cigarettes, uncomplicated; Z79.899 Other long term (current) drug therapy; Z88.0 Allergy status to penicillin; Z88.8 Allergy status to other drugs, medicaments and biological substances; Y92.89 Other specified places as the place of occurrence of the external cause
CPT/HCPCS: 36415; 71045; 80307; 80320; 80329; 85025; 93005; 99285; J2060; J2310; Q9967

== ENCOUNTER 2022-05-09 19:50 | Emergency (ER) | payer MEDICAID ==
[~2022-05-09] VITALS: Ht 165.1 cm; Wt 163.3 kg
[2022-05-09 20:10] VITALS: BP 152/56
== END 2022-05-10 00:21 | disposition left against medical advice (07) ==
LOC: ER 19:50
DX: R53.1 Weakness (principal); Z53.21 Procedure and treatment not carried out due to patient leaving prior to being seen by health care provider
CPT/HCPCS: 93005

== ENCOUNTER 2022-06-01 18:34 | Emergency (ER) | payer MEDICAID ==
[2022-06-01 20:49] LABS: Urine Bacteria MOD /hpf (None Seen); Urine Blood 3+ /uL (Negative); Urine Hyaline Cast FEW /lpf (0 - 2); Urine Mucus FEW (None Seen); Urine WBC 6 /hpf (0 - 5)
[2022-06-01 21:43] LABS: Alanine Aminotransferase 54 U/L (13-56); Albumin 3.4 g/dL (3.4-5.0); Anion Gap 10 (5-15); Aspartate Aminotransferase 41 U/L (15-37); BUN/Creatinine Ratio 17.9; Blood Urea Nitrogen 19 mg/dL (7-18); Calcium 8.8 mg/dL (8.5-10.1); Carbon Dioxide 22 mmol/L (21-32); Chloride 109 mmol/L (98-107); GFR African American 76 mL/min; GFR Non-African American 63 mL/min; Glucose 115 mg/dL (74-106); Lipase 47 U/L (73-393); Sodium 141 mmol/L (136-145)
[2022-06-01 21:46] LABS: Alkaline Phosphatase 68 U/L (45-117); Bilirubin, Total 0.5 mg/dL (0.2-1.0); Total Protein 7.6 g/dL (6.4-8.2)
[2022-06-01 22:18] LABS: Hematocrit 36.5 % (36.0-46.0); Hemoglobin 11.8 g/dL (12.2-16.2); Mean Corpuscular Hemoglobin 28.6 pg (28.0-32.0); Mean Corpuscular Hgb Conc. 32.4 g/dL (32.0-36.0); Mean Corpuscular Volume 88.3 fL (80.0-100.0); Red Blood Cells 4.13 10^6/uL (4.0-5.20); Red Cell Distribution Width 15.3 % (11.8-14.3); White Blood Cell 9.8 10^3/uL (4.4-10.8)
[2022-06-01 22:26] LABS: Band Neutrophils % (manual) 0; Basophils % (manual) 0 (0.0-2.0); Blast Cells 0; Metamyelocytes % 0; Myelocytes % 0; Promyelocytes % 0; Reactive Lymphocytes 0
[2022-06-01 23:04] LABS: Eosinophils % (manual) 4 (0-7); Lymphocytes % (manual) 12 (10.0-50.0); Monocytes % (manual) 11 (0-12)
[2022-06-02] MEDS ORDERED: ONDANSETRON HCL 4 MG/2 ML VIAL IV ONE (01:15)
[2022-06-02 01:47] VITALS: BP 156/59
== END 2022-06-02 02:24 | disposition short-term general hospital (02) ==
LOC: ER 18:34
DX: U07.1 COVID-19 (principal); T18.9XXA Foreign body of alimentary tract, part unspecified, initial encounter; K56.609 Unspecified intestinal obstruction, unspecified as to partial versus complete obstruction; J45.909 Unspecified asthma, uncomplicated; F17.210 Nicotine dependence, cigarettes, uncomplicated; I10 Essential (primary) hypertension; Z90.49 Acquired absence of other specified parts of digestive tract; Z79.899 Other long term (current) drug therapy; Z79.2 Long term (current) use of antibiotics; Z88.1 Allergy status to other antibiotic agents; Z88.8 Allergy status to other drugs, medicaments and biological substances; X58.XXXA Exposure to other specified factors, initial encounter; Y93.89 Activity, other specified; Y92.89 Other specified places as the place of occurrence of the external cause; Y99.8 Other external cause status
CPT/HCPCS: 36415; 71045; 74176; 80053; 81001; 83690; 84484; 85007; 85027; 87426; 93005; 96374; 99285; J2405

== ENCOUNTER 2022-06-14 17:16 | Emergency (ER) | payer MEDICAID ==
[~2022-06-14] VITALS: Ht 165.1 cm; Wt 149.9 kg
[2022-06-14] MEDS ORDERED: ACTIVATED CHARCOAL 50 GM/240 ML SOL PO ONE (20:00)
[2022-06-14] MEDS ORDERED: SODIUM CHLORIDE 0.9% 1,000 ML IV ONE ×2 (21:00→21:45)
[2022-06-14] MEDS ORDERED: metroNIDAZOLE 500MG/100ML 100 ML IV ONE (21:45)
[2022-06-14] MEDS ORDERED: cefTRIAXone 1GM/50ML D5W 50 ML IV ONE (21:45)
[2022-06-14 22:26] LABS: Basophils # (auto) 0.1 10 ^3/uL (0-0.2); Basophils % (auto) 0.5 % (0.0-2.0); Eosinophils # (auto) 0.3 10 ^3/uL (0-0.8); Eosinophils % (auto) 2.4 % (0.0-7.0); Hematocrit 37.7 % (36.0-46.0); Hemoglobin 11.9 g/dL (12.2-16.2); Lymphocytes # (auto) 1.1 10 ^3/uL (0.4-5.4); Lymphocytes % (auto) 10.7 % (10.0-50.0); Mean Corpuscular Hgb Conc. 31.5 g/dL (32.0-36.0); Monocytes # (auto) 0.9 10 ^3/uL (0-1.3); Neutrophils # (auto) 8.4 10 ^3/uL (1.6-8.6); Neutrophils % (auto) 78.4 % (37.0-80.0); Red Blood Cells 4.24 10^6/uL (4.0-5.20); Red Cell Distribution Width 15.2 % (11.8-14.3); White Blood Cell 10.7 10^3/uL (4.4-10.8)
[2022-06-14 22:44] LABS: Albumin 3.8 g/dL (3.4-5.0); Potassium 4.1 mmol/L (3.5-5.1)
[2022-06-14 22:47] LABS: Bilirubin, Total 0.5 mg/dL (0.2-1.0); Total Protein 7.8 g/dL (6.4-8.2)
[2022-06-14 22:48] LABS: Acetaminophen < 2.0 ug/mL (10-30); Salicylate < 1.7 mg/dL (2.8-20.0)
[2022-06-14] MEDS ORDERED: MORPHINE SULFATE 4 MG/ML SYR/VIAL IV ONE (23:15)
[2022-06-15] MEDS ORDERED: HALOPERIDOL LACTATE 5 MG/ML INJ VIAL IM SCH
[2022-06-15] MEDS ORDERED: ONDANSETRON HCL 4 MG/2 ML VIAL IV ONE
[2022-06-15 00:26] VITALS: BP 159/96
[2022-06-15] MEDS ORDERED: LORazepam 2MG/ML-1ML VIAL IM ONE (02:00)
[2022-06-15] MEDS ORDERED: MORPHINE SULFATE 4 MG/ML SYR/VIAL IV SCH (02:00)
[2022-06-15] MEDS ORDERED: ONDANSETRON ODT 4 MG TAB PO ONE (02:00)
== END 2022-06-15 00:49 | disposition short-term general hospital (02) ==
LOC: ER 17:16
DX: K63.1 Perforation of intestine (nontraumatic) (principal); F17.210 Nicotine dependence, cigarettes, uncomplicated; F12.10 Cannabis abuse, uncomplicated; J45.909 Unspecified asthma, uncomplicated; Z90.49 Acquired absence of other specified parts of digestive tract; Z88.0 Allergy status to penicillin; Z88.1 Allergy status to other antibiotic agents; Z88.6 Allergy status to analgesic agent; Z88.8 Allergy status to other drugs, medicaments and biological substances
CPT/HCPCS: 36415; 74018; 74176; 80053; 80329; 83605; 83690; 85025; 96372; 96374; 96375; 99285; J2270; J2405

== ENCOUNTER 2022-10-22 18:21 | Emergency (ER) | payer MEDICAID ==
[~2022-10-22] VITALS: Ht 167.6 cm; Wt 100.0 kg
[2022-10-22 18:50] VITALS: BP 112/65
== END 2022-10-22 19:25 | disposition left against medical advice (07) ==
LOC: EDBD 18:21 → ER 18:24
DX: R10.9 Unspecified abdominal pain (principal); R06.02 Shortness of breath; R11.2 Nausea with vomiting, unspecified; Z53.21 Procedure and treatment not carried out due to patient leaving prior to being seen by health care provider

== ENCOUNTER 2023-01-10 10:34 | Emergency (ER) | payer MEDICAID ==
[~2023-01-10] VITALS: Ht 165.1 cm; Wt 135.0 kg
[2023-01-10 10:40] VITALS: BP 109/59
[2023-01-10 11:46] LABS: Urine Bacteria NONE SEEN /hpf (None Seen); Urine Blood Negative /uL (Negative); Urine WBC <1 /hpf (0 - 5)
[2023-01-10] MEDS ORDERED: KETOROLAC TROMETH 60MG/2ML VIAL IM ONE (12:00)
[2023-01-10] MEDS ORDERED: cefTRIAXone SOD 1,000 MG VL IM ONE (12:00)
[2023-01-10] MEDS ORDERED: CEPH-510 PO (12:29)
[2023-01-10] MEDS ORDERED: IBUP800T27 PO (12:29)
== END 2023-01-10 12:40 | disposition home or self-care (01) ==
LOC: ER 10:34
DX: L72.3 Sebaceous cyst (principal); H66.93 Otitis media, unspecified, bilateral; J03.90 Acute tonsillitis, unspecified; J45.909 Unspecified asthma, uncomplicated; F17.210 Nicotine dependence, cigarettes, uncomplicated; Z90.49 Acquired absence of other specified parts of digestive tract; Z79.899 Other long term (current) drug therapy; Z79.2 Long term (current) use of antibiotics; Z88.1 Allergy status to other antibiotic agents; Z88.8 Allergy status to other drugs, medicaments and biological substances
CPT/HCPCS: 70450; 81001; 96372; 99285; J0696; J1885

== ENCOUNTER 2023-04-20 00:34 | Emergency (ER) | payer MEDICAID ==
[~2023-04-20] VITALS: Ht 165.1 cm; Wt 136.5 kg
[~2023-04-20 00:34] MED LIST changes: +CEPH-510 PO; +CLON-1003 PO; -CLON0.5T PO; -DIVA500T2 PO; +DIVA500T3 PO; -DOXY100C2 PO; +DOXY100C4 PO; +IBUP-1456 PO
[2023-04-20] MEDS ORDERED: HYDROcodone-ACET 10/325MG TAB PO ONE (04:00)
[2023-04-20 04:10] LABS: Urine Bacteria FEW /hpf (None Seen); Urine Blood Negative /uL (Negative); Urine Specific Gravity 1.013 (1.001-1.035); Urine WBC 1 /hpf (0 - 5)
[2023-04-20] MEDS ORDERED: ONDANSETRON ODT 4 MG TAB PO ONE (04:15)
[2023-04-20] MEDS ORDERED: HYDROmorphone HCL 2 MG/ML VL/or syr IM ONE (04:15)
[2023-04-20 06:40] LABS: Albumin 3.6 g/dL (3.4-5.0); Calcium 9.1 mg/dL (8.5-10.1); Magnesium 2.5 mg/dL (1.6-2.6); Potassium 4.2 mmol/L (3.5-5.1)
[2023-04-20 06:43] LABS: BUN/Creatinine Ratio 26.4 (10.0-20.0); Bilirubin, Total 0.2 mg/dL (0.2-1.0); Total Protein 7.5 g/dL (6.4-8.2)
[2023-04-20 06:47] LABS: INR 0.95 (0.9-1.15); Partial Thromboplastin Time 30.4 sec (24.6-33.4)
[2023-04-20 07:32] LABS: Basophils # (auto) 0.1 10 ^3/uL (0-0.2); Basophils % (auto) 0.8 % (0.0-2.0); Eosinophils # (auto) 0.3 10 ^3/uL (0-0.8); Eosinophils % (auto) 2.9 % (0.0-7.0); Hematocrit 28.5 % (36.0-46.0); Hemoglobin 9.3 g/dL (12.2-16.2); Lymphocytes # (auto) 1.6 10 ^3/uL (0.4-5.4); Lymphocytes % (auto) 13.9 % (10.0-50.0); Mean Corpuscular Hemoglobin 27.6 pg (28.0-32.0); Mean Corpuscular Hgb Conc. 32.7 g/dL (32.0-36.0); Mean Corpuscular Volume 84.4 fL (80.0-100.0); Monocytes # (auto) 0.7 10 ^3/uL (0-1.3); Monocytes % (auto) 5.8 % (0.0-12.0); Neutrophils # (auto) 8.9 10 ^3/uL (1.6-8.6); Neutrophils % (auto) 76.6 % (37.0-80.0); Nucleated Red Blood Cells % 0.1 %; Red Blood Cells 3.38 10^6/uL (4.0-5.20); Red Cell Distribution Width 15.7 % (11.8-14.3); White Blood Cell 11.6 10^3/uL (4.4-10.8)
[2023-04-20 10:01] VITALS: BP 132/40
[2023-04-20] MEDS ORDERED: cefEPIME 1gm INJ VIAL IM ONE (11:45)
== END 2023-04-20 11:55 | disposition left against medical advice (07) ==
LOC: ER 00:34
DX: T81.30XA Disruption of wound, unspecified, initial encounter (principal); F41.9 Anxiety disorder, unspecified; J45.909 Unspecified asthma, uncomplicated; F32.9 Major depressive disorder, single episode, unspecified; F20.9 Schizophrenia, unspecified; F17.210 Nicotine dependence, cigarettes, uncomplicated; F12.10 Cannabis abuse, uncomplicated; Z90.49 Acquired absence of other specified parts of digestive tract; Z88.8 Allergy status to other drugs, medicaments and biological substances
CPT/HCPCS: 36415; 74176; 80053; 81001; 83605; 83690; 83735; 84484; 84702; 85025; 85610; 85730; 87040; 87077; 87186; 87205; 96372; 99285; J0692; J1170; Q0162

== ENCOUNTER 2023-05-24 03:09 | Inpatient (IN) | payer MEDICAID ==
[~2023-05-24] VITALS: Ht 165.1 cm; Wt 140.0 kg
[2023-05-24] MEDS ORDERED: HYDROmorphone HCL 2 MG/ML VL/or syr IV ONE ×2 (03:30→09:15)
[2023-05-24] MEDS ORDERED: SODIUM CHLORIDE 0.9% 500 ML IV ONE (03:30)
[2023-05-24] MEDS ORDERED: ONDANSETRON HCL 4 MG/2 ML VIAL IV ONE ×2 (03:30→09:15)
[2023-05-24] MEDS ORDERED: ONDANSETRON HCL 4 MG/2 ML VIAL IM ONE (03:45)
[2023-05-24] MEDS ORDERED: HYDROmorphone HCL 2 MG/ML VL/or syr IM ONE (03:45)
[2023-05-24 04:19] LABS: Urine Bacteria NONE SEEN /hpf (None Seen); Urine Blood Negative /uL (Negative); Urine Specific Gravity 1.014 (1.001-1.035); Urine WBC <1 /hpf (0 - 5)
[2023-05-24] MEDS ORDERED: CLINDAMYCIN 600MG IV 50 ML IV ONE (06:00)
[2023-05-24] MEDS ORDERED: CLINDAMYCIN HCL 150 MG CAP PO ONE (06:30)
[2023-05-24] MEDS ORDERED: ACETAMINOPHEN 325 MG TAB PO ONE (09:30)
[2023-05-24] MEDS ORDERED: VANCOMYCIN PER PHARMACY 0 MG IV SCH (11:15)
[2023-05-24] MEDS ORDERED: DOCUSATE SOD 100 MG CAP PO PRN (11:15)
[2023-05-24] MEDS ORDERED: FURO1TAB31 PO (11:28)
[2023-05-24] MEDS ORDERED: BUSP15TA60 PO (11:28)
[2023-05-24] MEDS ORDERED: OMEP20TA PO (11:28)
[2023-05-24] MEDS ORDERED: DULO20CA PO (11:28)
[2023-05-24] MEDS ORDERED: LAMO100T44 PO (11:28)
[2023-05-24] MEDS ORDERED: PROP60CA34 PO (11:28)
[2023-05-24] MEDS ORDERED: HYDR-4798 PO (11:28)
[2023-05-24] MEDS ORDERED: HYDR50CA PO (11:28)
[2023-05-24 11:37] LABS: Basophils # (auto) 0 10 ^3/uL (0-0.2); Eosinophils # (auto) 0 10 ^3/uL (0-0.8); Monocytes # (auto) 0.8 10 ^3/uL (0-1.3); Nucleated Red Blood Cells % 0.1 %
[2023-05-24 11:38] LABS: Albumin 3.2 g/dL (3.4-5.0); Calcium 8.5 mg/dL (8.5-10.1); Potassium 4.2 mmol/L (3.5-5.1)
[2023-05-24 11:39] LABS: Basophils % (auto) 0.1 % (0.0-2.0); Hematocrit 27.8 % (36.0-46.0); Hemoglobin 8.7 g/dL (12.2-16.2); Lymphocytes # (auto) 0.6 10 ^3/uL (0.4-5.4); Lymphocytes % (auto) 3.6 % (10.0-50.0); Mean Corpuscular Hgb Conc. 31.4 g/dL (32.0-36.0); Mean Corpuscular Volume 82.7 fL (80.0-100.0); Monocytes % (auto) 5.6 % (0.0-12.0); Neutrophils # (auto) 13.8 10 ^3/uL (1.6-8.6); Neutrophils % (auto) 90.7 % (37.0-80.0); Red Blood Cells 3.36 10^6/uL (4.0-5.20); Red Cell Distribution Width 16.6 % (11.8-14.3); White Blood Cell 15.2 10^3/uL (4.4-10.8)
[2023-05-24 11:41] LABS: BUN/Creatinine Ratio 25.9 (10.0-20.0); Bilirubin, Total 0.4 mg/dL (0.2-1.0)
[2023-05-24 12:00] LABS: INR 1.04 (0.9-1.15)
[2023-05-24] MEDS ORDERED: VANCOMYCIN 1GM/250ML 250 ML IV ONE (12:00)
[2023-05-24] MEDS: SODIUM CHLORIDE 0.9% 1,000 ML IV SCH ×2 (12:14→22:55)
[2023-05-24] MEDS: busPIRone HCL 10 MG TAB PO SCH ×2 (14:43→22:55)
[2023-05-24] MEDS: PROPRANOLOL HCL 20 MG TAB PO SCH ×2 (14:43→22:55)
[2023-05-24] MEDS: clonazePAM 0.5 MG TAB PO SCH ×2 (14:43→22:55)
[2023-05-24] MEDS: GABAPENTIN 300 MG CAP PO SCH ×2 (14:44→22:55)
[2023-05-24] MEDS: HYDROmorphone HCL 2 MG/ML VL/or syr IV PRN ×2 (14:45→20:21)
[2023-05-24] MEDS: CEFEPIME 2GM/50ML NS 50 ML IV SCH ×2 (14:45→22:55)
[2023-05-24] MEDS: ONDANSETRON HCL 4 MG/2 ML VIAL IV PRN (14:45)
[2023-05-24 15:27] VITALS: BP 103/40
[2023-05-24] MEDS: VANCOMYCIN 1GM/250ML 250 ML IV SCH (20:22)
[2023-05-24] MEDS ORDERED: QUEtiapine FUMARATE 100 MG TAB PO PRN (22:00)
[2023-05-24] MEDS: BUDESONIDE IN SCH (22:55)
[2023-05-24] MEDS: FORMOTEROL IN SCH (22:55)
[2023-05-24] MEDS: APIXABAN 5 MG TAB PO SCH (22:55)
[2023-05-24 23:00] VITALS: BP 138/91
[2023-05-25] MEDS: HYDROmorphone HCL 2 MG/ML VL/or syr IV PRN ×6 (00:36→21:57)
[2023-05-25] MEDS: VANCOMYCIN 1GM/250ML 250 ML IV SCH ×3 (04:30→22:41)
[2023-05-25 05:00] VITALS: BP 118/80
[2023-05-25] MEDS ORDERED: DULO60CA41 PO (06:04)
[2023-05-25] MEDS ORDERED: LAM100T OR (06:04)
[2023-05-25] MEDS: busPIRone HCL 10 MG TAB PO SCH ×3 (06:18→22:44)
[2023-05-25] MEDS: CEFEPIME 2GM/50ML NS 50 ML IV SCH ×3 (06:19→22:42)
[2023-05-25] MEDS: PROPRANOLOL HCL 20 MG TAB PO SCH ×3 (06:19→22:44)
[2023-05-25] MEDS: clonazePAM 0.5 MG TAB PO SCH ×3 (06:19→22:43)
[2023-05-25] MEDS: GABAPENTIN 300 MG CAP PO SCH ×3 (06:19→22:42)
[2023-05-25 09:19] VITALS: BP 117/81
[2023-05-25] MEDS: PANTOPRAZOLE 40 MG/10 ML VIAL INJ IV SCH (09:41)
[2023-05-25] MEDS: APIXABAN 5 MG TAB PO SCH ×2 (09:41→22:44)
[2023-05-25] MEDS: SODIUM CHLORIDE 0.9% 1,000 ML IV SCH ×2 (09:42→18:00)
[2023-05-25] MEDS: POLYETHYLENE GLYCOL 17 GM PWDR PO SCH (09:43)
[2023-05-25] MEDS: BUDESONIDE IN SCH (10:00)
[2023-05-25] MEDS: FORMOTEROL IN SCH (10:00)
[2023-05-25] MEDS: ALBUTEROL SULF 2.5 MG/0.5ML(0.5%) NEB SOLN NEB PRN (10:53)
[2023-05-25] MEDS: IPRATROPIUM BROM 0.5 MG/2.5ML INH SOL NEB PRN (10:53)
[2023-05-25 11:36] LABS: Basophils # (auto) 0 10 ^3/uL (0-0.2); Basophils % (auto) 0.4 % (0.0-2.0); Eosinophils # (auto) 0 10 ^3/uL (0-0.8); Monocytes # (auto) 0.9 10 ^3/uL (0-1.3); Monocytes % (auto) 9.1 % (0.0-12.0); Neutrophils # (auto) 8.4 10 ^3/uL (1.6-8.6); Nucleated Red Blood Cells % 0.1 %
[2023-05-25 11:38] LABS: Eosinophils % (auto) 0.4 % (0.0-7.0); Hematocrit 31.8 % (36.0-46.0); Hemoglobin 9.5 g/dL (12.2-16.2); Lymphocytes # (auto) 0.9 10 ^3/uL (0.4-5.4); Lymphocytes % (auto) 8.7 % (10.0-50.0); Mean Corpuscular Hemoglobin 25.7 pg (28.0-32.0); Mean Corpuscular Hgb Conc. 29.8 g/dL (32.0-36.0); Mean Corpuscular Volume 86.2 fL (80.0-100.0); Neutrophils % (auto) 81.4 % (37.0-80.0); Red Blood Cells 3.68 10^6/uL (4.0-5.20); Red Cell Distribution Width 16.9 % (11.8-14.3); White Blood Cell 10.4 10^3/uL (4.4-10.8)
[2023-05-25 11:58] LABS: Albumin 3.4 g/dL (3.4-5.0); Potassium 4.3 mmol/L (3.5-5.1)
[2023-05-25 12:01] LABS: Bilirubin, Total 0.4 mg/dL (0.2-1.0); Total Protein 7.7 g/dL (6.4-8.2)
[2023-05-25 13:00] VITALS: BP 140/87
[2023-05-25] MEDS: ONDANSETRON HCL 4 MG/2 ML VIAL IV PRN (13:29)
[2023-05-25] MEDS: ACETAMINOPHEN 325 MG TAB PO PRN (14:14)
[2023-05-25 17:00] VITALS: BP 153/94
[2023-05-25] MEDS ORDERED: VANCOMYCIN 1GM/250ML 250 ML IV SCH (18:00)
[2023-05-25 22:00] VITALS: BP 133/85
[2023-05-26] VITALS (7 sets, daily range): BP systolic 110–143; BP diastolic 62–83
[2023-05-26] MEDS: HYDROmorphone HCL 2 MG/ML VL/or syr IV PRN ×5 (03:08→21:57)
[2023-05-26] MEDS: SODIUM CHLORIDE 0.9% 1,000 ML IV SCH ×3 (04:59→23:13)
[2023-05-26] MEDS: VANCOMYCIN 1GM/250ML 250 ML IV SCH ×4 (05:00→21:55)
[2023-05-26] MEDS: CEFEPIME 2GM/50ML NS 50 ML IV SCH ×3 (06:17→22:58)
[2023-05-26] MEDS: busPIRone HCL 10 MG TAB PO SCH ×3 (06:17→21:55)
[2023-05-26] MEDS: GABAPENTIN 300 MG CAP PO SCH ×3 (06:18→21:56)
[2023-05-26] MEDS: clonazePAM 0.5 MG TAB PO SCH ×4 (06:18→21:56)
[2023-05-26] MEDS: PROPRANOLOL HCL 20 MG TAB PO SCH ×3 (06:18→21:57)
[2023-05-26] MEDS: ACETAMINOPHEN 325 MG TAB PO PRN (06:19)
[2023-05-26] MEDS: PANTOPRAZOLE 40 MG/10 ML VIAL INJ IV SCH (08:04)
[2023-05-26] MEDS: POLYETHYLENE GLYCOL 17 GM PWDR PO SCH (08:04)
[2023-05-26] MEDS: APIXABAN 5 MG TAB PO SCH ×2 (08:04→21:56)
[2023-05-26] MEDS: IPRATROPIUM BROM 0.5 MG/2.5ML INH SOL NEB PRN (10:53)
[2023-05-26] MEDS: ALBUTEROL SULF 2.5 MG/0.5ML(0.5%) NEB SOLN NEB PRN (10:53)
[2023-05-26] MEDS ORDERED: diphenhdrAMINE HCL 50 MG/1 ML VL IV ONE (11:45)
[2023-05-26] MEDS: diphenhdrAMINE HCL 50 MG/1 ML VL IV PRN ×2 (15:28→19:50)
[2023-05-27] MEDS: HYDROmorphone HCL 2 MG/ML VL/or syr IV PRN ×5 (03:03→20:46)
[2023-05-27] MEDS: VANCOMYCIN 1GM/250ML 250 ML IV SCH ×3 (03:25→17:19)
[2023-05-27 05:00] VITALS: BP 142/89
[2023-05-27] MEDS: busPIRone HCL 10 MG TAB PO SCH ×3 (05:34→20:45)
[2023-05-27] MEDS: GABAPENTIN 300 MG CAP PO SCH ×3 (05:34→20:45)
[2023-05-27] MEDS: clonazePAM 0.5 MG TAB PO SCH ×2 (05:34→20:44)
[2023-05-27] MEDS: CEFEPIME 2GM/50ML NS 50 ML IV SCH ×3 (05:34→20:44)
[2023-05-27] MEDS: diphenhdrAMINE HCL 50 MG/1 ML VL IV PRN ×4 (05:35→22:40)
[2023-05-27] MEDS: PROPRANOLOL HCL 20 MG TAB PO SCH ×3 (05:46→20:44)
[2023-05-27 09:00] VITALS: BP 114/47
[2023-05-27] MEDS: SODIUM CHLORIDE 0.9% 1,000 ML IV SCH (09:15)
[2023-05-27] MEDS: POLYETHYLENE GLYCOL 17 GM PWDR PO SCH (10:00)
[2023-05-27] MEDS: PANTOPRAZOLE 40 MG/10 ML VIAL INJ IV SCH (10:06)
[2023-05-27] MEDS: APIXABAN 5 MG TAB PO SCH ×2 (10:06→20:45)
[2023-05-27 13:00] VITALS: BP 105/67
[2023-05-27 13:04] VITALS: BP 105/67
[2023-05-27 16:42] VITALS: BP 133/84
[2023-05-27 17:22] LABS: Albumin 2.6 g/dL (3.4-5.0); BUN/Creatinine Ratio 17.4 (10.0-20.0)
[2023-05-27 17:26] LABS: Bilirubin, Total 0.3 mg/dL (0.2-1.0); Total Protein 7.2 g/dL (6.4-8.2)
[2023-05-28] MEDS ORDERED: VANCOMYCIN 1GM/250ML 250 ML IV SCH (01:00)
[2023-05-28 01:05] VITALS: BP 122/74
[2023-05-28] MEDS: HYDROmorphone HCL 2 MG/ML VL/or syr IV PRN (01:05)
[2023-05-28] MEDS: SODIUM CHLORIDE 0.9% 1,000 ML IV SCH (01:07)
== END 2023-05-28 02:05 | disposition left against medical advice (07) | DRG 721 ==
LOC: EDBD 03:09 → ER 03:13 → TELE 11:21 → TELE-EAST 21:18
PROVIDERS: ADMIT Nurse Practitioner Family; ATTEND Internal Medicine
PROC: 05HB33Z Insertion of Infusion Device into Right Basilic Vein, Percutaneous Approach (ICD-10-PCS; principal; 2023-05-26)
PROC: B54MZZA Ultrasonography of Right Upper Extremity Veins, Guidance (ICD-10-PCS; 2023-05-26)
DX: T81.41XA Infection following a procedure, superficial incisional surgical site, initial encounter (principal); A41.9 Sepsis, unspecified organism; E44.1 Mild protein-calorie malnutrition; D62 Acute posthemorrhagic anemia; L03.311 Cellulitis of abdominal wall; E87.1 Hypo-osmolality and hyponatremia; I10 Essential (primary) hypertension; Z53.29 Procedure and treatment not carried out because of patient's decision for other reasons; F17.210 Nicotine dependence, cigarettes, uncomplicated; Y83.8 Other surgical procedures as the cause of abnormal reaction of the patient, or of later complication, without mention of misadventure at the time of the procedure; F20.9 Schizophrenia, unspecified; F31.9 Bipolar disorder, unspecified; Z79.01 Long term (current) use of anticoagulants; Z79.899 Other long term (current) drug therapy; Z88.8 Allergy status to other drugs, medicaments and biological substances; Z82.0 Family history of epilepsy and other diseases of the nervous system; Z86.718 Personal history of other venous thrombosis and embolism; Z91.51 Personal history of suicidal behavior; Z68.43 Body mass index [BMI] 50.0-59.9, adult; Y92.89 Other specified places as the place of occurrence of the external cause
CPT/HCPCS: 36415; 71250; 74176; 80053; 80164; 80202; 81001; 82565; 83605; 83690; 84484; 84702; 85025; 85610; 87040; 87077; 87186; 87205; 94640; 96365; 96372; 96375; C9113; G0378; J0692; J2405

== ENCOUNTER 2023-06-19 01:05 | Emergency (ER) | payer MEDICAID ==
[~2023-06-19] VITALS: Ht 165.1 cm; Wt 135.9 kg
[~2023-06-19 01:05] MED LIST changes: +DULO20CA PO; +DULO60CA41 PO; +FURO1TAB31 PO; +HYDR-4798 PO; +HYDR50CA PO; +LAM100T OR; +LAMO100T44 PO; +OMEP20TA PO
[2023-06-19 01:30] VITALS: BP 138/93; PULSE 89; RESP 18; O2SAT 96
== END 2023-06-19 07:13 | disposition home or self-care (01) ==
LOC: ER 01:05
DX: G89.18 Other acute postprocedural pain (principal); F41.9 Anxiety disorder, unspecified; J45.909 Unspecified asthma, uncomplicated; F32.9 Major depressive disorder, single episode, unspecified; F17.210 Nicotine dependence, cigarettes, uncomplicated; F12.90 Cannabis use, unspecified, uncomplicated; Z88.8 Allergy status to other drugs, medicaments and biological substances; Z79.899 Other long term (current) drug therapy; Z91.040 Latex allergy status; Z90.49 Acquired absence of other specified parts of digestive tract
CPT/HCPCS: 74176

== ENCOUNTER 2023-07-08 23:26 | Inpatient (IN) | payer MEDICAID ==
[~2023-07-08] VITALS: Ht 165.1 cm; Wt 134.6 kg
[2023-07-09] MEDS ORDERED: ACCU-CHEK COMFORT CURVE STRIP VI ONE (00:30)
[2023-07-09 01:00] VITALS: PULSE 70; RESP 12; O2SAT 96
[2023-07-09 01:16] LABS: Albumin 3.6 g/dL (3.4-5.0); BUN/Creatinine Ratio 22.7 (10.0-20.0); Calcium 8.8 mg/dL (8.7-10.4); Potassium 4.6 mmol/L (3.5-5.1)
[2023-07-09 01:18] LABS: Bilirubin, Total 0.3 mg/dL (0.2-1.0); Total Protein 7.2 g/dL (6.4-8.2)
[2023-07-09 01:21] LABS: Alcohol, Urine < 3.0 mg/dL (0-10); Amphetamine Screen, Urine NEGATIVE (NEGATIVE); Barbiturate Scree,Urine NEGATIVE (NEGATIVE); Benzodiazephine Screen, Urine NEGATIVE (NEGATIVE); Cannabinoid Screen, Urine NEGATIVE (NEGATIVE); Cocaine Screen, Urine NEGATIVE (NEGATIVE); Opiate Scree,Urine NEGATIVE (NEGATIVE); Phencyclidine Screen, Urine NEGATIVE (NEGATIVE)
[2023-07-09 01:42] LABS: Urine Bacteria FEW /hpf (None Seen); Urine Blood Negative /uL (Negative); Urine Clarity Clear (Clear); Urine Color Colorless (Yellow); Urine Protein, UAD Negative (Negative); Urine Specific Gravity 1.007 (1.001-1.035); Urine Urobilinogen Normal (Negative); Urine WBC 3 /hpf (0 - 5)
[2023-07-09] MEDS ORDERED: PIPERACILLIN-TAZOB 3.375GM 100 ML IV ONE (03:45)
[2023-07-09] MEDS ORDERED: VANCOMYCIN 1GM/250ML 250 ML IV ONE (03:45)
[2023-07-09 04:03] LABS: Basophils # (auto) 0.1 10 ^3/uL (0-0.2); Basophils % (auto) 0.7 % (0.0-2.0); Eosinophils # (auto) 0.2 10 ^3/uL (0-0.8); Eosinophils % (auto) 2.9 % (0.0-7.0); Hematocrit 25.8 % (36.0-46.0); Lymphocytes # (auto) 1.3 10 ^3/uL (0.4-5.4); Lymphocytes % (auto) 17.8 % (10.0-50.0); Mean Corpuscular Hemoglobin 24.5 pg (28.0-32.0); Mean Corpuscular Hgb Conc. 31.2 g/dL (32.0-36.0); Mean Corpuscular Volume 78.8 fL (80.0-100.0); Monocytes # (auto) 0.8 10 ^3/uL (0-1.3); Neutrophils % (auto) 67.6 % (37.0-80.0); Red Blood Cells 3.27 10^6/uL (4.0-5.20); Red Cell Distribution Width 17.8 % (11.8-14.3); White Blood Cell 7.4 10^3/uL (4.4-10.8)
[2023-07-09 04:15] LABS: CRP High Sensitivity 6.5 mg/dL (< 0.3)
[2023-07-09 04:50] LABS: Erythrocyte Sedimentation Rate 54 mm/hr (0-20)
[2023-07-09] MEDS ORDERED: HALOPERIDOL LACTATE 5 MG/ML INJ VIAL IM ONE (06:30)
[2023-07-09] MEDS ORDERED: diphenhdrAMINE HCL 50 MG/1 ML VL IM ONE (06:30)
[2023-07-09] MEDS ORDERED: LORazepam 2MG/ML-1ML VIAL IM ONE (06:30)
[2023-07-09] MEDS ORDERED: ONDANSETRON ODT 4 MG TAB PO ONE (07:45)
[2023-07-09 08:17] VITALS: PULSE 76; RESP 16; O2SAT 95
[2023-07-09] MEDS ORDERED: MORPHINE SULFATE 4 MG/ML SYR/VIAL IV ONE (12:45)
[2023-07-09] MEDS ORDERED: ONDANSETRON HCL 4 MG/2 ML VIAL IV ONE (12:45)
[2023-07-09] MEDS ORDERED: VANCOMYCIN PER PHARMACY 0 MG IV SCH (14:30)
[2023-07-09] MEDS ORDERED: ACETAMINOPHEN 325 MG TAB PO PRN (14:30)
[2023-07-09] MEDS ORDERED: ALBUTEROL SULF 2.5 MG/0.5ML(0.5%) NEB SOLN NEB PRN (14:30)
[2023-07-09] MEDS ORDERED: GABA-339 PO (14:39)
[2023-07-09] MEDS ORDERED: METH100I PO (14:39)
[2023-07-09] MEDS: SODIUM CHLORIDE 0.9% 1,000 ML IV SCH (14:40)
[2023-07-09 14:49] VITALS: BP 145/76; PULSE 74; RESP 16; TEMP 97.8; O2SAT 95
[2023-07-09 15:28] LABS: Triglycerides 60 mg/dL (< 150)
[2023-07-09 15:29] LABS: LDL Cholesterol 45 mg/dL (< 100)
[2023-07-09 15:30] LABS: Cholesterol 92 mg/dL (< 200); HDL Cholesterol 36 mg/dL (40-59)
[2023-07-09] MEDS: MORPHINE SULFATE INJ 2 MG/ml SYRG IV PRN ×2 (15:38→20:41)
[2023-07-09 15:45] LABS: Prothrombin Time 10.5 sec (9.3-11.8)
[2023-07-09] MEDS: HYDROcodone-ACET 5/325MG TAB PO PRN (16:50)
[2023-07-09 17:11] LABS: % Iron Saturation 4.4 % (15-50)
[2023-07-09 17:47] LABS: Folate (Folic Acid) 10.4 ng/mL (>5.38)
[2023-07-09] MEDS ORDERED: PIPERACILLIN-TAZOB 3.375GM 100 ML IV SCH (18:00)
[2023-07-09] MEDS: CEFEPIME 1GM/ 50ML 50 ML IV SCH ×2 (18:23→23:36)
[2023-07-09 20:55] LABS: Platelet Estimate Adequate
[2023-07-09 20:57] LABS: Anisocytosis Slight; Hypochromia Moderate
[2023-07-09] MEDS: GABAPENTIN 400 MG CAP PO SCH (21:49)
[2023-07-09] MEDS: lamoTRIgine 25 MG TAB PO SCH (21:49)
[2023-07-09] MEDS: ASCORBIC ACID 500 MG TAB PO SCH (21:49)
[2023-07-09] MEDS: busPIRone HCL 10 MG TAB PO SCH (21:50)
[2023-07-09] MEDS: clonazePAM 0.5 MG TAB PO SCH (21:50)
[2023-07-09] MEDS: PROPRANOLOL HCL 20 MG TAB PO SCH (22:00)
[2023-07-09] MEDS ORDERED: TEMAZEPAM 15 MG CAP PO ONE (22:15)
[2023-07-09] MEDS: metroNIDAZOLE 500MG/100ML 100 ML IV SCH (22:21)
[2023-07-09] MEDS: VANCOMYCIN 1GM/250ML 250 ML IV SCH (22:21)
[2023-07-10] VITALS (8 sets, daily range): BP systolic 101–131; BP diastolic 61–91; PULSE 74–92; RESP 16–20; TEMP 98.2–99.1; O2SAT 94–99
[2023-07-10] MEDS: HYDROcodone-ACET 5/325MG TAB PO PRN ×2 (03:28→20:37)
[2023-07-10] MEDS: SODIUM CHLORIDE 0.9% 1,000 ML IV SCH ×2 (03:50→20:00)
[2023-07-10] MEDS: metroNIDAZOLE 500MG/100ML 100 ML IV SCH ×3 (04:59→20:36)
[2023-07-10] MEDS: busPIRone HCL 10 MG TAB PO SCH ×3 (05:37→21:22)
[2023-07-10] MEDS: lamoTRIgine 25 MG TAB PO SCH ×3 (05:37→21:23)
[2023-07-10] MEDS: clonazePAM 0.5 MG TAB PO SCH ×3 (05:43→21:23)
[2023-07-10] MEDS: PROPRANOLOL HCL 20 MG TAB PO SCH ×3 (06:30→21:27)
[2023-07-10] MEDS: VANCOMYCIN 1GM/250ML 250 ML IV SCH ×3 (06:30→18:38)
[2023-07-10] MEDS: GABAPENTIN 400 MG CAP PO SCH ×3 (06:51→21:23)
[2023-07-10 07:31] LABS: Basophils # (auto) 0 10 ^3/uL (0-0.2); Eosinophils # (auto) 0.2 10 ^3/uL (0-0.8); Monocytes # (auto) 0.6 10 ^3/uL (0-1.3); White Blood Cell 5.8 10^3/uL (4.4-10.8)
[2023-07-10 07:32] LABS: Basophils % (auto) 0.9 % (0.0-2.0); Hemoglobin 8.9 g/dL (12.2-16.2); Lymphocytes % (auto) 17.6 % (10.0-50.0); Mean Corpuscular Hemoglobin 24.7 pg (28.0-32.0); Mean Corpuscular Hgb Conc. 31.7 g/dL (32.0-36.0); Monocytes % (auto) 11.2 % (0.0-12.0); Neutrophils # (auto) 3.8 10 ^3/uL (1.6-8.6); Neutrophils % (auto) 66.3 % (37.0-80.0); Nucleated Red Blood Cells % 0.1 %; Red Blood Cells 3.58 10^6/uL (4.0-5.20); Red Cell Distribution Width 17.7 % (11.8-14.3)
[2023-07-10] MEDS: CEFEPIME 1GM/ 50ML 50 ML IV SCH ×3 (07:32→23:00)
[2023-07-10 07:39] LABS: Alanine Aminotransferase 15 U/L (7-40); Albumin 4.1 g/dL (3.2-4.8); Alkaline Phosphatase 75 U/L (46-116); Anion Gap 7.9 (5-15); Aspartate Aminotransferase 14 U/L (13-40); BUN/Creatinine Ratio 13.2 (10.0-20.0); Bilirubin, Total 0.5 mg/dL (0.2-1.0); Blood Urea Nitrogen 9 mg/dL (9-23); Calcium 9.3 mg/dL (8.5-10.1); Carbon Dioxide 25.1 mmol/L (20-30); Chloride 106 mmol/L (98-107); Glucose 87 mg/dL (74-106); Potassium 3.9 mmol/L (3.5-5.1); Sodium 139 mmol/L (136-145); Total Protein 7.1 g/dL (5.7-8.2)
[2023-07-10] MEDS: MORPHINE SULFATE INJ 2 MG/ml SYRG IV PRN ×2 (08:39→15:55)
[2023-07-10] MEDS ORDERED: MULTIPLE VITAMIN TAB PO SCH (10:00)
[2023-07-10] MEDS ORDERED: FUROSEMIDE 40 MG TAB PO SCH (10:00)
[2023-07-10] MEDS: ASCORBIC ACID 500 MG TAB PO SCH ×2 (10:00→21:24)
[2023-07-10] MEDS ORDERED: PANTOPRAZOLE 40 MG TAB PO SCH (10:00)
[2023-07-10] MEDS ORDERED: ZINC SULFATE 220mg CAP or TAB PO SCH (10:00)
[2023-07-10] MEDS ORDERED: DULoxetine HCL 30 MG CAP PO SCH (10:00)
[2023-07-10] MEDS ORDERED: POTA-180 PO (10:09)
[2023-07-10] MEDS ORDERED: fentaNYL CITRATE 100 MCG/2 ML VL IV ONE (11:15)
[2023-07-10] MEDS ORDERED: MIDAZOLAM HCL 2MG/2ML 2ml VIAL (1mg/ml) IV ONE (11:15)
[2023-07-10] MEDS ORDERED: diphenhdrAMINE HCL 50 MG/1 ML VL ONE (11:47)
[2023-07-10 16:18] LABS: Body Fluid Red Blood Cells 425 CUMM (0-2000); Body Fluid White Blood Cells 0 CUMM (0-200)
[2023-07-10] MEDS ORDERED: HALOPERIDOL LACTATE 5 MG/ML INJ VIAL IV PRN (18:30)
[2023-07-10] MEDS ORDERED: NYSTATIN TOPICAL CREAM 15GM TOP SCH (22:00)
[2023-07-11] MEDS: HYDROcodone-ACET 5/325MG TAB PO PRN (02:08)
[2023-07-11] MEDS: metroNIDAZOLE 500MG/100ML 100 ML IV SCH (04:00)
[2023-07-11 05:00] VITALS: BP 134/83; PULSE 70; RESP 20; TEMP 98.8; O2SAT 96
[2023-07-11] MEDS: busPIRone HCL 10 MG TAB PO SCH (05:27)
[2023-07-11] MEDS: GABAPENTIN 400 MG CAP PO SCH (05:27)
[2023-07-11] MEDS: lamoTRIgine 25 MG TAB PO SCH (05:28)
[2023-07-11] MEDS: clonazePAM 0.5 MG TAB PO SCH (05:28)
[2023-07-11] MEDS: VANCOMYCIN 1GM/250ML 250 ML IV SCH (05:39)
[2023-07-11] MEDS: PROPRANOLOL HCL 20 MG TAB PO SCH (05:44)
[2023-07-11] MEDS: SODIUM CHLORIDE 0.9% 1,000 ML IV SCH (06:11)
[2023-07-11] MEDS: CEFEPIME 1GM/ 50ML 50 ML IV SCH (06:59)
== END 2023-07-11 08:15 | disposition left against medical advice (07) | DRG 721 ==
LOC: EDBD 23:26 → ER 23:29 → OVERFLOW 07-09 14:25 → CENTRAL 07-10 09:45
PROVIDERS: ADMIT Nurse Practitioner Family; ATTEND Family Medicine
PROC: 0WJG3ZZ Inspection of Peritoneal Cavity, Percutaneous Approach (ICD-10-PCS; principal; 2023-07-10)
DX: T81.49XA Infection following a procedure, other surgical site, initial encounter (principal); T81.30XA Disruption of wound, unspecified, initial encounter; R56.9 Unspecified convulsions; D63.8 Anemia in other chronic diseases classified elsewhere; L02.211 Cutaneous abscess of abdominal wall; E86.0 Dehydration; D64.9 Anemia, unspecified; E66.01 Morbid (severe) obesity due to excess calories; I10 Essential (primary) hypertension; L03.311 Cellulitis of abdominal wall; F17.210 Nicotine dependence, cigarettes, uncomplicated; F20.9 Schizophrenia, unspecified; F31.9 Bipolar disorder, unspecified; Y83.8 Other surgical procedures as the cause of abnormal reaction of the patient, or of later complication, without mention of misadventure at the time of the procedure; F41.9 Anxiety disorder, unspecified; J45.909 Unspecified asthma, uncomplicated; Z53.29 Procedure and treatment not carried out because of patient's decision for other reasons; Z82.0 Family history of epilepsy and other diseases of the nervous system; Z82.5 Family history of asthma and other chronic lower respiratory diseases; Z83.3 Family history of diabetes mellitus; Z91.51 Personal history of suicidal behavior; Z68.42 Body mass index [BMI] 45.0-49.9, adult; Z88.0 Allergy status to penicillin; Z88.8 Allergy status to other drugs, medicaments and biological substances; Y92.89 Other specified places as the place of occurrence of the external cause
CPT/HCPCS: 36415; 71045; 74176; 76705; 76942; 80053; 80061; 80307; 81001; 82607; 82746; 83036; 83540; 83550; 83605; 83690; 83880; 84443; 84484; 85025; 85610; 85652; 86141; 86850; 86900; 86901; 87040; 87081; 87086; 87205; 89051; 96365; 96375; 96376; G0378; J2250; J2405; J2543; J3490; Q0162

== ENCOUNTER 2023-10-26 14:56 | Emergency (ER) | payer MEDICAID ==
[~2023-10-26] VITALS: Ht 165.1 cm; Wt 136.5 kg
[~2023-10-26 14:56] MED LIST changes: -BACI-5 EX; -COLACE; -DIVA500T3 PO; -DOXY100C4 PO; -DULO20CA PO; -HYDR-4798 PO; -HYDR50CA PO; -LAM100T OR; +METH100I PO; -OME20GT PO; -POLY33504 PO; +POTA-180 PO; -QUET200T45 PO; -QUET400T13 PO; -TRAZ300T13; -VALP250S19 PO
[2023-10-26 15:26] VITALS: BP 120/83; RESP 18; O2SAT 98
[2023-10-26 16:34] VITALS: PULSE 82
[2023-10-26 16:34] LABS: Basophils # (auto) 0.1 10 ^3/uL (0-0.2); Basophils % (auto) 0.8 % (0.0-2.0); Eosinophils # (auto) 0.1 10 ^3/uL (0-0.8); Eosinophils % (auto) 1.2 % (0.0-7.0); Hematocrit 29.6 % (36.0-46.0); Hemoglobin 9.4 g/dL (12.2-16.2); Lymphocytes # (auto) 0.9 10 ^3/uL (0.4-5.4); Lymphocytes % (auto) 10.4 % (10.0-50.0); Mean Corpuscular Hemoglobin 25.8 pg (28.0-32.0); Mean Corpuscular Hgb Conc. 31.7 g/dL (32.0-36.0); Mean Corpuscular Volume 81.4 fL (80.0-100.0); Monocytes # (auto) 0.9 10 ^3/uL (0-1.3); Monocytes % (auto) 9.6 % (0.0-12.0); Nucleated Red Blood Cells % 0.1 %; Red Blood Cells 3.64 10^6/uL (4.0-5.20); Red Cell Distribution Width 17.9 % (11.8-14.3); White Blood Cell 8.9 10^3/uL (4.4-10.8)
[2023-10-26 16:47] LABS: Alanine Aminotransferase 15 U/L (7-40); Albumin 4.6 g/dL (3.2-4.8); Alkaline Phosphatase 74 U/L (46-116); Anion Gap 5 (5-15); Aspartate Aminotransferase 23 U/L (13-40); BUN/Creatinine Ratio 13.8 (10.0-20.0); Bilirubin, Total 0.5 mg/dL (0.2-1.0); Blood Urea Nitrogen 11 mg/dL (9-23); Calcium 9.2 mg/dL (8.7-10.4); Carbon Dioxide 26 mmol/L (20-30); Chloride 103 mmol/L (98-107); Glucose 93 mg/dL (74-106); Potassium 4.6 mmol/L (3.5-5.1); Sodium 134 mmol/L (136-145)
[2023-10-26 16:48] LABS: Total Protein 7.6 g/dL (5.7-8.2)
== END 2023-10-26 20:40 | disposition left against medical advice (07) ==
LOC: ER 14:56
DX: J11.1 Influenza due to unidentified influenza virus with other respiratory manifestations (principal); R42 Dizziness and giddiness; R51.9 Headache, unspecified; J45.909 Unspecified asthma, uncomplicated; F17.210 Nicotine dependence, cigarettes, uncomplicated; F12.10 Cannabis abuse, uncomplicated; Z88.0 Allergy status to penicillin; Z88.6 Allergy status to analgesic agent; Z88.5 Allergy status to narcotic agent; Z90.49 Acquired absence of other specified parts of digestive tract
CPT/HCPCS: 36415; 80053; 82962; 85025; 93005

== ENCOUNTER 2023-11-24 15:35 | Emergency (ER) | payer MEDICAID | END 2023-11-24 17:46 | disposition left against medical advice (07) | LOC: ER 15:35 | DX: R52 Pain, unspecified (principal); Z53.21 Procedure and treatment not carried out due to patient leaving prior to being seen by health care provider ==

== ENCOUNTER 2024-01-22 15:34 | Emergency (ER) | payer MEDICAID ==
[~2024-01-22] VITALS: Ht 165.1 cm; Wt 127.0 kg
[2024-01-22 16:58] VITALS: PULSE 64; RESP 22; O2SAT 94
[2024-01-22 17:01] VITALS: BP 105/60; PULSE 65; RESP 14; O2SAT 95
== END 2024-01-22 17:51 | disposition left against medical advice (07) ==
LOC: ER 15:34 → EDBD 15:34 → ER 17:51
DX: S01.511A Laceration without foreign body of lip, initial encounter (principal); Z53.21 Procedure and treatment not carried out due to patient leaving prior to being seen by health care provider; X58.XXXA Exposure to other specified factors, initial encounter; Y93.89 Activity, other specified; Y92.89 Other specified places as the place of occurrence of the external cause; Y99.8 Other external cause status

== ENCOUNTER 2024-01-30 13:17 | Emergency (ER) | payer MEDICAID ==
[~2024-01-30] VITALS: Ht 165.1 cm; Wt 132.0 kg
[2024-01-30 14:14] VITALS: BP 123/48; PULSE 88; RESP 14; O2SAT 95
[2024-01-30] MEDS ORDERED: methylPREDNISolone SOD SUCC 125 MG/2 ML VL IM ONE (14:30)
[2024-01-30] MEDS: methylPREDNISolone SOD SUCC 125 MG/2 ML VL IM ONE (14:53)
[2024-01-30] MEDS: ACETAMINOPHEN 500 MG TAB PO ONE (14:53)
[2024-01-30] MEDS ORDERED: CLIN300C70 PO (15:00)
[2024-01-30] MEDS ORDERED: LIDO2SOL26 MT (15:00)
[2024-01-30 15:23] VITALS: TEMP 97.8
== END 2024-01-30 15:24 | disposition home or self-care (01) ==
LOC: ER 13:17 → EDBD 13:17 → ER 15:22
DX: J03.90 Acute tonsillitis, unspecified (principal); H92.03 Otalgia, bilateral; J45.909 Unspecified asthma, uncomplicated; F17.210 Nicotine dependence, cigarettes, uncomplicated; Z90.49 Acquired absence of other specified parts of digestive tract; Z79.1 Long term (current) use of non-steroidal anti-inflammatories (NSAID); Z79.2 Long term (current) use of antibiotics; Z79.899 Other long term (current) drug therapy; Z88.1 Allergy status to other antibiotic agents; Z88.8 Allergy status to other drugs, medicaments and biological substances
CPT/HCPCS: 96372; 99283; J2930

== ENCOUNTER 2024-02-01 15:51 | Emergency (ER) | payer MEDICAID ==
[~2024-02-01] VITALS: Ht 165.1 cm; Wt 113.0 kg
[~2024-02-01 15:51] MED LIST changes: +CLIN300C70 PO; +LIDO2SOL26 MT
[2024-02-01] MEDS: NALOXONE HCL 1MG/ML 2ML SYRINGE IV ONE ×2 (16:22→19:30)
[2024-02-01] MEDS ORDERED: cefTRIAXone 1GM/50ML D5W 50 ML IV ONE (16:30)
[2024-02-01] MEDS: ALBUTEROL SULF 2.5 MG/0.5ML(0.5%) NEB SOLN NEB ONE (16:30)
[2024-02-01] MEDS: NALOXONE HCL 1MG/ML 2ML SYRINGE IM ONE (16:30)
[2024-02-01 16:40] VITALS: PULSE 92; RESP 20; O2SAT 100
[2024-02-01 17:05] LABS: Basophils # (auto) 0 10 ^3/uL (0-0.2); Eosinophils # (auto) 0 10 ^3/uL (0-0.8); Eosinophils % (auto) 0.2 % (0.0-7.0); Nucleated Red Blood Cells % 0.1 %; Red Cell Distribution Width 17.6 % (11.8-14.3)
[2024-02-01] MEDS: SODIUM CHLORIDE 0.9% 1,000 ML IVB ONE (17:06)
[2024-02-01 17:08] LABS: Basophils % (auto) 0.5 % (0.0-2.0); Hematocrit 27.4 % (36.0-46.0); Hemoglobin 8.5 g/dL (12.2-16.2); Lymphocytes % (auto) 11.6 % (10.0-50.0); Mean Corpuscular Hemoglobin 24.9 pg (28.0-32.0); Mean Corpuscular Hgb Conc. 30.9 g/dL (32.0-36.0); Mean Corpuscular Volume 80.7 fL (80.0-100.0); Monocytes # (auto) 0.8 10 ^3/uL (0-1.3); Monocytes % (auto) 9.2 % (0.0-12.0); Neutrophils # (auto) 6.8 10 ^3/uL (1.6-8.6); Neutrophils % (auto) 78.5 % (37.0-80.0); Red Blood Cells 3.39 10^6/uL (4.0-5.20); White Blood Cell 8.7 10^3/uL (4.4-10.8)
[2024-02-01 17:18] LABS: INR 1.05 (0.9-1.15); Partial Thromboplastin Time 25.1 SEC (24.5-34.5)
[2024-02-01 17:38] LABS: Alanine Aminotransferase 20 U/L (7-40); Alkaline Phosphatase 75 U/L (46-116); Calcium 8.9 mg/dL (8.7-10.4)
[2024-02-01 17:39] LABS: Anion Gap 7 (5-15); Aspartate Aminotransferase 29 U/L (13-40); BUN/Creatinine Ratio 26.1 (10.0-20.0); Bilirubin, Total 0.2 mg/dL (0.2-1.0); Blood Urea Nitrogen 24 mg/dL (9-23); Carbon Dioxide 26 mmol/L (20-30); Chloride 105 mmol/L (98-107); Glucose 90 mg/dL (74-106); Magnesium 1.7 mg/dL (1.6-2.6); Potassium 4.2 mmol/L (3.5-5.1); Sodium 138 mmol/L (136-145); Total Protein 6.4 g/dL (5.7-8.2)
[2024-02-01 17:59] LABS: Blood Alcohol < 3.0 mg/dL (<10)
[2024-02-01 18:06] LABS: Salicylate < 3.0 mg/dL (2.8-20.0)
[2024-02-01] MEDS: levoFLOXacin 500MG 100 ML IV ONE (18:25)
[2024-02-01] MEDS: ALBUTEROL SULF 2.5 MG/0.5ML(0.5%) NEB SOLN ONE (18:50)
[2024-02-01 19:30] VITALS: RESP 20; O2SAT 93
[2024-02-01] MEDS: FLUCONAZOLE 100 MG TAB PO ONE (20:04)
[2024-02-01] MEDS: diphenhdrAMINE HCL 50 MG/1 ML VL IV ONE ×3 (20:04→21:45)
[2024-02-01] MEDS: LIDOCAINE VISCOUS 2% 15ML UD PO ONE (20:05)
[2024-02-01] MEDS: MAALOX PLUS or MAALOX 30 ML PO ONE (20:05)
[2024-02-01 21:18] LABS: Urine Bacteria NONE SEEN /hpf (None Seen); Urine Blood 3+ /uL (Negative); Urine Clarity HAZY (Clear); Urine Color Yellow (Yellow); Urine Mucus FEW (None Seen); Urine Protein, UAD TRACE (Negative); Urine Specific Gravity 1.021 (1.001-1.035); Urine Urobilinogen Normal (Negative); Urine WBC 8 /hpf (0 - 5)
[2024-02-01 21:24] LABS: Amphetamine Screen, Urine Neg (NEGATIVE); Barbiturate Scree,Urine Neg (NEGATIVE); Benzodiazephine Screen, Urine Pos (NEGATIVE); Cannabinoid Screen, Urine Pos (NEGATIVE); Cocaine Screen, Urine Neg (NEGATIVE); Opiate Scree,Urine Neg (NEGATIVE); Phencyclidine Screen, Urine Neg (NEGATIVE)
[2024-02-01] MEDS: HALOPERIDOL LACTATE 5 MG/ML INJ VIAL IM ONE ×2 (21:30→21:45)
[2024-02-01] MEDS ORDERED: PRED15SO33 PO (22:39)
[2024-02-01] MEDS ORDERED: [UNRECOGNIZED DRUG - CODE] PO (22:39)
[2024-02-01] MEDS ORDERED: MAGIC MT (22:39)
[2024-02-01] MEDS ORDERED: ACET-1753 PO (22:39)
[2024-02-01] MEDS: MAGIC MOUTHWASH 55 ML SUSP MT ONE ×2 (22:42→22:48)
[2024-02-01] MEDS: methylPREDNISolone SOD SUCC 125 MG/2 ML VL IV ONE (22:48)
[2024-02-01] MEDS: CLINDAMYCIN 600MG IV 50 ML IV ONE (22:48)
[2024-02-01] MEDS: KETOROLAC TROMETH 30 MG/ML 1ML VIAL IV ONE (22:49)
[2024-02-02 01:15] VITALS: BP 136/75; PULSE 89; RESP 18; TEMP 98.4; O2SAT 94
== END 2024-02-02 01:16 | disposition home or self-care (01) ==
LOC: EDBD 15:51 → EDUNIT# 15:51 → EEVIPCON 15:51 → ER 15:51
DX: G92.9 Unspecified toxic encephalopathy (principal); J03.90 Acute tonsillitis, unspecified; Z79.2 Long term (current) use of antibiotics; Z79.1 Long term (current) use of non-steroidal anti-inflammatories (NSAID); Z79.899 Other long term (current) drug therapy; Z88.0 Allergy status to penicillin; Z88.8 Allergy status to other drugs, medicaments and biological substances
CPT/HCPCS: 36415; 36600; 70450; 70490; 71045; 80053; 80307; 80320; 80329; 81001; 82805; 83605; 83735; 84484; 85025; 85610; 85730; 87040; 87086; 93005; 94640; 96361; 96365; 96367; 96375; 96376; 99291; J1200; J1630; J1885; J1956; J2310; J2930; J3490; J7030

== ENCOUNTER 2024-05-22 17:24 | Emergency (ER) | payer MEDICAID ==
[~2024-05-22] VITALS: Ht 167.6 cm; Wt 134.8 kg
[~2024-05-22 17:24] MED LIST changes: +ACET-1753 PO; +CLIN1CAP70 PO; -CLIN300C70 PO; +MAGIC MT; +METH100035 PO; -METH100I PO; +PRED15SO33 PO; +[UNRECOGNIZED DRUG - CODE] PO
[2024-05-22] MEDS ORDERED: DOXY-286 PO (18:44)
[2024-05-22 18:49] VITALS: BP 139/89; PULSE 79; RESP 18; TEMP 98.9; O2SAT 97
== END 2024-05-22 18:52 | disposition home or self-care (01) ==
LOC: ER 17:37
DX: D17.0 Benign lipomatous neoplasm of skin and subcutaneous tissue of head, face and neck (principal); L03.811 Cellulitis of head [any part, except face]; R59.0 Localized enlarged lymph nodes; J45.909 Unspecified asthma, uncomplicated; F32.A Depression, unspecified; F20.9 Schizophrenia, unspecified; R56.9 Unspecified convulsions; F17.210 Nicotine dependence, cigarettes, uncomplicated; F12.10 Cannabis abuse, uncomplicated; Z86.2 Personal history of diseases of the blood and blood-forming organs and certain disorders involving the immune mechanism; Z90.49 Acquired absence of other specified parts of digestive tract; Z79.899 Other long term (current) drug therapy; Z88.0 Allergy status to penicillin; Z88.1 Allergy status to other antibiotic agents; Z88.5 Allergy status to narcotic agent; Z88.8 Allergy status to other drugs, medicaments and biological substances; Z88.6 Allergy status to analgesic agent

== ENCOUNTER 2024-08-02 03:58 | Inpatient (IN) | payer MEDICAID ==
[~2024-08-02] VITALS: Ht 172.7 cm; Wt 136.4 kg
[~2024-08-02 03:58] MED LIST changes: +DOXY-286 PO
[2024-08-02] MEDS ORDERED: ONDANSETRON HCL 4 MG/2 ML VIAL IV ONE (04:15)
[2024-08-02] MEDS: ONDANSETRON HCL 4 MG/2 ML VIAL IM ONE (05:49)
[2024-08-02 06:15] VITALS: PULSE 100; RESP 16; O2SAT 95
[2024-08-02 06:43] LABS: Basophils # (auto) 0 10 ^3/uL (0-0.2); Basophils % (auto) 0.2 % (0.0-2.0); Eosinophils # (auto) 0.2 10 ^3/uL (0-0.8); Hematocrit 39.4 % (36.0-46.0); Lymphocytes # (auto) 0.6 10 ^3/uL (0.4-5.4); Lymphocytes % (auto) 3.8 % (10.0-50.0); Mean Corpuscular Hemoglobin 27.9 pg (28.0-32.0); Mean Corpuscular Volume 84.5 fL (80.0-100.0); Monocytes # (auto) 1.3 10 ^3/uL (0-1.3); Monocytes % (auto) 8.2 % (0.0-12.0); Neutrophils # (auto) 13.5 10 ^3/uL (1.6-8.6); Neutrophils % (auto) 86.8 % (37.0-80.0); Platelet Count (auto) 254 10^3/uL (140-450); Red Blood Cells 4.66 10^6/uL (4.0-5.20); Red Cell Distribution Width 16.4 % (11.8-14.3); White Blood Cell 15.6 10^3/uL (4.4-10.8)
[2024-08-02 06:58] LABS: Alanine Aminotransferase 19 U/L (7-40); Albumin 4.2 g/dL (3.2-4.8); Alkaline Phosphatase 85 U/L (46-116); Anion Gap 4 (5-15); Aspartate Aminotransferase 13 U/L (13-40); BUN/Creatinine Ratio 36.1 (10.0-20.0); Blood Urea Nitrogen 26 mg/dL (9-23); Calcium 8.5 mg/dL (8.7-10.4); Carbon Dioxide 26 mmol/L (20-30); Chloride 110 mmol/L (98-107); Glucose 111 mg/dL (74-106); Lipase 49 U/L (12-53); Sodium 140 mmol/L (136-145)
[2024-08-02 06:59] LABS: Bilirubin, Total 0.5 mg/dL (0.2-1.0); Total Protein 6.6 g/dL (5.7-8.2)
[2024-08-02 07:57] LABS: Blood Alcohol < 3.0 mg/dL (<10)
[2024-08-02] MEDS: MORPHINE SULFATE INJ 2 MG/ml SYRG IM ONE (09:11)
[2024-08-02] MEDS: FAMOTIDINE (10MG/ML) 2ML VL IV ONE (11:32)
[2024-08-02] MEDS: metroNIDAZOLE 500MG/100ML 100 ML IV ONE (11:33)
[2024-08-02] MEDS: SODIUM CHLORIDE 0.9% 1,000 ML IV ONE (11:33)
[2024-08-02] MEDS ORDERED: NITROGLYCERIN 0.4 MG SL TAB SL PRN (12:45)
[2024-08-02] MEDS ORDERED: DOCUSATE SOD 100 MG CAP PO PRN (12:45)
[2024-08-02] MEDS: metroNIDAZOLE 500MG/100ML 100 ML IV SCH (14:00)
[2024-08-02] MEDS: MORPHINE SULFATE INJ 2 MG/ml SYRG IV PRN (14:59)
[2024-08-02] MEDS: levoFLOXacin 500MG 100 ML IV ONE (17:33)
[2024-08-02] MEDS: PANTOPRAZOLE 40 MG/10 ML VIAL INJ IV ONE (17:34)
[2024-08-02] MEDS: MORPHINE SULFATE INJ 2 MG/ml SYRG IV ONE (18:47)
[2024-08-02] MEDS: SODIUM CHLORIDE 0.9% 1,000 ML IV SCH (18:47)
[2024-08-02 19:43] VITALS: PULSE 75; RESP 15; O2SAT 97
[2024-08-02] MEDS ORDERED: diphenhdrAMINE HCL 50 MG/1 ML VL IV ONE (20:30)
[2024-08-02] MEDS: diphenhdrAMINE HCL 50 MG/1 ML VL IV ONE (21:23)
[2024-08-02 22:04] LABS: Urine Bacteria None Seen /hpf (None Seen); Urine WBC None Seen /hpf (0 - 5)
[2024-08-02 22:11] LABS: Urine Blood Negative /uL (Negative); Urine Clarity Clear (Clear); Urine Color Light-Yellow (Yellow); Urine Protein, UAD Negative (Negative); Urine Specific Gravity 1.023 (1.001-1.035); Urine Urobilinogen Normal (Negative); Urine pH 6.5 (5.0-9.0)
[2024-08-02 22:21] LABS: Amphetamine Screen, Urine Neg (NEGATIVE); Barbiturate Scree,Urine Neg (NEGATIVE); Benzodiazephine Screen, Urine Neg (NEGATIVE)
[2024-08-02 22:22] LABS: Cannabinoid Screen, Urine Neg (NEGATIVE); Cocaine Screen, Urine Neg (NEGATIVE); Opiate Scree,Urine Pos (NEGATIVE); Phencyclidine Screen, Urine Neg (NEGATIVE)
[2024-08-02] MEDS: ENOXAPARIN SOD 150 MG/1 ML SYRINGE SC SCH (22:26)
[2024-08-03] MEDS: HYDROmorphone HCL 2 MG/ML VL/or syr IV ONE (01:34)
[2024-08-03] MEDS ORDERED: ONDA-155 (04:01)
[2024-08-03 06:06] LABS: Basophils # (auto) 0 10 ^3/uL (0-0.2); Basophils % (auto) 0.7 % (0.0-2.0); Eosinophils # (auto) 0.1 10 ^3/uL (0-0.8); Eosinophils % (auto) 1.8 % (0.0-7.0); Hematocrit 33.2 % (36.0-46.0); Hemoglobin 10.9 g/dL (12.2-16.2); Lymphocytes % (auto) 14.2 % (10.0-50.0); Mean Corpuscular Hemoglobin 27.7 pg (28.0-32.0); Mean Corpuscular Hgb Conc. 32.7 g/dL (32.0-36.0); Mean Corpuscular Volume 84.8 fL (80.0-100.0); Monocytes # (auto) 0.8 10 ^3/uL (0-1.3); Monocytes % (auto) 11.6 % (0.0-12.0); Neutrophils # (auto) 4.9 10 ^3/uL (1.6-8.6); Neutrophils % (auto) 71.7 % (37.0-80.0); Nucleated Red Blood Cells % 0.5 %; Platelet Count (auto) 164 10^3/uL (140-450); Red Blood Cells 3.92 10^6/uL (4.0-5.20); Red Cell Distribution Width 16.2 % (11.8-14.3); White Blood Cell 6.8 10^3/uL (4.4-10.8)
[2024-08-03] MEDS ORDERED: BUSP30TA PO (06:22)
[2024-08-03] MEDS ORDERED: CLON-853 PO (06:22)
[2024-08-03] MEDS ORDERED: CETI-120 PO (06:22)
[2024-08-03] MEDS ORDERED: HYDR-4072 (06:22)
[2024-08-03] MEDS ORDERED: PROP1TAB51 PO (06:22)
[2024-08-03] MEDS ORDERED: OMEP-448 (06:22)
[2024-08-03] MEDS ORDERED: CELE1CAP27 PO (06:22)
[2024-08-03] MEDS ORDERED: METH-1182 PO (06:22)
[2024-08-03] MEDS ORDERED: SERT-160 PO (06:22)
[2024-08-03] MEDS ORDERED: LAMO200T62 PO (06:22)
[2024-08-03 06:38] LABS: Alanine Aminotransferase 16 U/L (7-40); Albumin 3.7 g/dL (3.2-4.8); Alkaline Phosphatase 64 U/L (46-116); Anion Gap 9 (5-15); Aspartate Aminotransferase 27 U/L (13-40); BUN/Creatinine Ratio 26.2 (10.0-20.0); Bilirubin, Total 0.4 mg/dL (0.2-1.0); Blood Urea Nitrogen 16 mg/dL (9-23); Carbon Dioxide 22 mmol/L (20-30); Chloride 109 mmol/L (98-107); Glucose 88 mg/dL (74-106); Sodium 140 mmol/L (136-145); Total Protein 5.8 g/dL (5.7-8.2)
[2024-08-03 06:54] LABS: Calcium 8.3 mg/dL (8.7-10.4)
[2024-08-03] MEDS: PANTOPRAZOLE 40 MG/10 ML VIAL INJ IV SCH (10:21)
[2024-08-03] MEDS: levoFLOXacin 500MG 100 ML IV SCH (10:22)
[2024-08-03] MEDS: GASTROGRAFIN 120 ML SOL ONE (14:50)
[2024-08-03 16:17] VITALS: PULSE 78; RESP 16; O2SAT 97
[2024-08-03 16:30] VITALS: BP 162/83; PULSE 78; RESP 16; TEMP 98; O2SAT 97
[2024-08-03 20:00] VITALS: PULSE 62; RESP 18; O2SAT 97
[2024-08-03] MEDS: ONDANSETRON HCL 4 MG/2 ML VIAL IV PRN (21:40)
[2024-08-04 05:00] VITALS: BP 138/53; PULSE 63; RESP 18; TEMP 98.2; O2SAT 99
[2024-08-04 08:00] VITALS: PULSE 66; RESP 20; O2SAT 91
[2024-08-04 09:00] VITALS: BP 146/71; PULSE 60; RESP 20; TEMP 98.5; O2SAT 98
[2024-08-04 13:00] VITALS: BP 162/83; PULSE 78; RESP 16; TEMP 98; O2SAT 97
[2024-08-04 13:37] VITALS: BP 162/83; PULSE 78; RESP 16; TEMP 98; O2SAT 97
[2024-08-04 15:14] LABS: Basophils # (auto) 0 10 ^3/uL (0-0.2); Basophils % (auto) 0.3 % (0.0-2.0); Eosinophils # (auto) 0.1 10 ^3/uL (0-0.8); Eosinophils % (auto) 1.5 % (0.0-7.0); Hemoglobin 10.8 g/dL (12.2-16.2); Lymphocytes # (auto) 1.4 10 ^3/uL (0.4-5.4); Lymphocytes % (auto) 25.1 % (10.0-50.0); Mean Corpuscular Hgb Conc. 31.9 g/dL (32.0-36.0); Monocytes # (auto) 0.5 10 ^3/uL (0-1.3); Neutrophils # (auto) 3.6 10 ^3/uL (1.6-8.6); Neutrophils % (auto) 64.1 % (37.0-80.0); Nucleated Red Blood Cells % 0.1 %; Platelet Count (auto) 221 10^3/uL (140-450); Red Blood Cells 3.86 10^6/uL (4.0-5.20); Red Cell Distribution Width 15.9 % (11.8-14.3); White Blood Cell 5.7 10^3/uL (4.4-10.8)
[2024-08-04 15:37] LABS: Alanine Aminotransferase 19 U/L (7-40); Albumin 3.9 g/dL (3.2-4.8); Alkaline Phosphatase 65 U/L (46-116); Anion Gap 7 (5-15); Aspartate Aminotransferase 20 U/L (13-40); Bilirubin, Total 0.3 mg/dL (0.2-1.0); Calcium 8.9 mg/dL (8.7-10.4); Carbon Dioxide 22 mmol/L (20-30); Chloride 110 mmol/L (98-107); Glucose 95 mg/dL (74-106); Magnesium 2.1 mg/dL (1.6-2.6); Potassium 3.4 mmol/L (3.5-5.1); Sodium 139 mmol/L (136-145); Total Protein 6.2 g/dL (5.7-8.2)
[2024-08-04 15:45] LABS: Blood Urea Nitrogen 6 mg/dL (9-23)
[2024-08-04 17:29] VITALS: BP 150/84; PULSE 77; RESP 20; TEMP 98.1; O2SAT 97
== END 2024-08-04 16:54 | disposition home or self-care (01) | DRG 249 ==
LOC: ER 03:58 → EDBD 03:58 → OVERFLOW 12:48 → WEST WING 08-03 17:07
PROVIDERS: ADMIT Nurse Practitioner Family; ATTEND Internal Medicine Geriatric Medicine
PROC: 05H933Z Insertion of Infusion Device into Right Brachial Vein, Percutaneous Approach (ICD-10-PCS; 2024-08-02)
PROC: B54MZZA Ultrasonography of Right Upper Extremity Veins, Guidance (ICD-10-PCS; 2024-08-02)
PROC: 05PYX3Z Removal of Infusion Device from Upper Vein, External Approach (ICD-10-PCS; 2024-08-02)
PROC: 05HA33Z Insertion of Infusion Device into Left Brachial Vein, Percutaneous Approach (ICD-10-PCS; 2024-08-02)
PROC: B54NZZA Ultrasonography of Left Upper Extremity Veins, Guidance (ICD-10-PCS; 2024-08-02)
PROC: 05HC33Z Insertion of Infusion Device into Left Basilic Vein, Percutaneous Approach (ICD-10-PCS; principal; 2024-08-03)
PROC: B54NZZA Ultrasonography of Left Upper Extremity Veins, Guidance (ICD-10-PCS; 2024-08-03)
DX: K52.9 Noninfective gastroenteritis and colitis, unspecified (principal); R65.10 Systemic inflammatory response syndrome (SIRS) of non-infectious origin without acute organ dysfunction; R56.9 Unspecified convulsions; E66.01 Morbid (severe) obesity due to excess calories; F20.9 Schizophrenia, unspecified; E86.0 Dehydration; F41.9 Anxiety disorder, unspecified; F43.10 Post-traumatic stress disorder, unspecified; J45.909 Unspecified asthma, uncomplicated; F17.210 Nicotine dependence, cigarettes, uncomplicated; I10 Essential (primary) hypertension; F31.9 Bipolar disorder, unspecified; Z88.1 Allergy status to other antibiotic agents; Z88.8 Allergy status to other drugs, medicaments and biological substances; Z79.899 Other long term (current) drug therapy; Z88.0 Allergy status to penicillin; Z90.49 Acquired absence of other specified parts of digestive tract; Z82.5 Family history of asthma and other chronic lower respiratory diseases; Z83.3 Family history of diabetes mellitus; Z82.0 Family history of epilepsy and other diseases of the nervous system; Z68.42 Body mass index [BMI] 45.0-49.9, adult
CPT/HCPCS: 36415; 74176; 74250; 80053; 80307; 80320; 81001; 83690; 83735; 84702; 85025; 87045; 87427; 87493; 96372; G0378; J1956; J2405; J2470; J3490

== ENCOUNTER 2025-03-04 05:50 | Inpatient (IN) | payer MEDICAID ==
[~2025-03-04] VITALS: Ht 167.6 cm; Wt 149.9 kg
[~2025-03-04 05:50] MED LIST changes: +BUSP30TA PO; +CELE1CAP27 PO; +CETI-120 PO; +CLON-853 PO; +HYDR-4072; +LAMO200T62 PO; +METH-1182 PO; +OMEP-448; +ONDA-155; +PROP1TAB51 PO; +SERT-160 PO
--- NOTE | 2025-03-04 06:33 | ED.PDOC ---
Musculoskeletal HPI Comments 39 y/o obese F, with PMHx of HTN, anxiety, asthma, depression, and schizophrene presents to the ED for CC of bilateral leg swelling. Patient states, she has been experiencing bilateral leg swelling [id number]. Patient relays, associated symptoms of shortness of breath and palpitations with light exertion. Patient comments, that she is currently taking Lasix and Tagalog. Patient denies denies any heart issues, fever, chills, nausea, or inability to bear weight. No other symptoms or modifying factors present at this time. Chief Complaint: Lower Extremity Time Seen by MD: 06:25 Primary Care Provider: UNKNOWN Reviewed Notes: Nurses Notes, Medications, Allergies Allergies: Coded Allergies: Bupropion (Verified Allergy, Severe, SEIZURES, 12/23/11) Ephedrine (Verified Allergy, Severe, HIVES, 12/23/11) Haloperidol (Verified Allergy, Severe, JAW LOCK, AIRWAY SWELLING, 12/23/11) Phenobarbital (Verified Allergy, Severe, HIVES, 12/23/11) Theophylline (Verified Allergy, Severe, HIVES, 12/23/11) Ceftriaxone (Verified Allergy, Unknown, HIVES, 02/01/24) Iodine (Verified Allergy, Unknown, 04/20/23) Penicillins (Verified Allergy, Unknown, HIVES, 02/01/24) Piperacillin (Verified Allergy, Unknown, 04/06/21) Tazobactam (Verified Allergy, Unknown, 04/06/21) Home Meds Active Scripts Ibuprofen (Ibuprofen) 800 Mg Tab, 1 TAB PO TID, #30 TAB Prov:NORMA WILKINSON 01/10/23 Reported Medications Hydroxyzine Pamoate (Vistaril) 25 Mg Cap, 100 MG PO DAILY PRN for ANXIETY, CAP 03/04/25 Mirtazapine (Remeron) 30 Mg Tb, 1 TAB PO QPM, #30 TAB 1 Refill 03/04/25 Lamotrigine (LAMICTAL) 100 Mg Tab, 200 MG PO DAILY, TAB 03/04/25 Senna (Senokot) 8.6 Mg Tab, 2 TAB PO BID for constipation, #40 TAB 03/04/25 Docusate Sodium (Colace) 100 Mg Cap, 100 MG PO BID, CAP 03/04/25 Hydrocodone-Acetaminophen (Hydrocodone/Acetaminophen 10-325 mg) 1 Tab Tab 08/03/24 Methocarbamol (Methocarbamol) 750 Mg Tab, 1 TAB PO BID 08/03/24 Ondansetron HCl (Ondansetron) 4 Mg Tab, 4 MG 08/03/24 Potassium Chloride (Potassium Chloride ER) 20 Meq Tab, 1 TAB PO DAILY 07/10/23 Gabapentin (Gabapentin) 600 Mg Tab, 1200 MG PO TID, MG 07/09/23 Furosemide (Lasix) 40 Mg Tab, 40 MG PO DAILY, TAB 05/24/23 Budesonide-Formoterol Fumarate (Budesonide/Formoterol Fum 160-4.5 Mcg/Act) 1 Aer Aer, 1 AER IN BID, AER 04/07/21 Buspirone Hcl (Buspirone Hcl) 15 Mg Tab, 15 MG PO TID for 30 Days 04/07/21 Apixaban Base (ELIQUIS) 5 Mg Tab, 5 MG PO BID, TAB 04/07/21 Propranolol Hcl (Inderal La) 60 Mg Cap, 10 MG PO TID, CAP 04/07/21 Clonazepam (Klonopin) 0.5 Mg Tab, 1 MG PO TID PRN for ANXIETY 12/23/11 Discontinued Reported Medications Clonazepam (Clonazepam) 1 Mg Tab, 1 TAB PO DAILY 08/03/24 Omeprazole (Omeprazole Dr) 40 Mg Cap 08/03/24 Cetirizine HCl (Cetirizine Hydrochloride) 10 Mg Tab, 1 TAB PO DAILY 08/03/24 Celecoxib (Celecoxib) 100 Mg Cap, 1 CAP PO BID 08/03/24 Propranolol HCl (Propranolol Hydrochloride) 10 Mg Tab, 1 TAB PO TID 08/03/24 Lamotrigine (LAMOTRIGINE ER) 200 Mg Tab, 1 TAB PO DAILY 08/03/24 Methocarbamol (Robaxin) 1,000 Mg/10 Ml Inj, 750 MG PO BID, INJ 07/09/23 Duloxetine Hcl (Cymbalta) 60 Mg Cap, 1 CAP PO DAILY, #90 CAP 3 Refills 05/25/23 Lamotrigine (Lamotrigine) 100 Mg Tab, 50 MG PO TID, TAB 05/24/23 Omeprazole (Gnp Omeprazole) 20 Mg Tab, 40 MG PO DAILY for ACID REFLEX, TAB 05/24/23 Hydrocodone-Acetaminophen (Hydrocodone Bitartrate/AC 5-325 mg) 1 Tab Tab, 1 TAB PO TIDPRN, TAB 04/07/21 Information Source: Patient Mode of Arrival: Wheelchair Location: Bilateral Extremity Location: Leg Timing: Months Prehospital treatment: None Severity: Moderate Able to Move Extremity: Yes Bear Weight: Limited Pain: Moderate Onset of Symptoms: Spontaneous Symptoms: Swelling, Pain Associated signs and symptoms: Swelling Past Medical History PAST MEDICAL HISTORY: Anxiety, Asthma, Depression, Schizophrenia, Seizures Surgical History: Cholecystectomy PATIENT RELATIONS SPECIALIST History: No Pertinent PATIENT RELATIONS SPECIALIST History Family History Family History: Reviewed,noncontributory to illness Social History Smoker: Cigarettes, Less Than 1 Pack/Day Alcohol: Denies ETOH Use Drugs: Marijuana Lives In: Home Constitutional: denies: chills, diaphoresis, fatigue, fever, malaise, sweats, weakness, others EENTM: denies: blurred vision, double vision, ear bleeding, ear discharge, ear drainage, ear pain, ear ringing, eye pain, eye redness, hearing loss, mouth pain, mouth swelling, nasal discharge, nose bleeding, nose congestion, nose pain, photophobia, tearing, throat pain, throat swelling, voice changes, others Respiratory: denies: cough, hemoptysis, orthopnea, SOB at rest, shortness of breath, SOB with excertion, stridor, wheezing, others Cardiovascular: denies: chest pain, dizzy spells, diaphoresis, Dyspnea on exertion, edema, irregular heart beat, left arm pain, lightheadedness, palpitations, PND, syncope, others Gastrointestinal: denies: abdomen distended, abdominal pain, blood streaked bowels, constipated, diarrhea, dysphagia, difficulty swallowing, hematemesis, melena, nausea, poor appetite, poor fluid intake, rectal bleeding, rectal pain, vomiting, others Genitourinary: denies: abnormal vagina bleeding, burning, dyspareunia, dysuria, flank pain, frequency, hematuria, incontinence, pain, , vagina discharge, urgency, others Neurological: denies: dizziness, fainting, headache, left sided numbness, left sided weakness, numbness, paresthesia, pre-existing deficit, right sided numbness, right sided weakness, seizure, speech problems, tingling, tremors, weakness, others Musculoskeletal: reports: others (bilateral leg swelling); denies: back pain, gout, joint pain, joint swelling, muscle pain, muscle stiffness, neck pain Integumetry: denies: bruises, change in color, change in hair/nails, dryness, laceration, lesions, lumps, rash, wounds, others Allergic/Immunocompromised: denies: Difficulty Healing, Frequent Infections, Hives, Itching, others Hematologic/Lymphatic: denies: anemia, blood clots, easy bleeding, easy bruisi ng, swollen glands, others Endocrine: denies: excessive hunger, excessive sweating, excessive thirst, exce ssive urination, flushing, intolerance to cold, intolerance to heat, unexplained weight gain, unexplained weight loss, others Psychiatric: denies: anxiety, bipolar disorder, depression, hopeless, panic disorder, schizophrenia, sleepless, suicidal, others All Other Systems: Reviewed and Negative Physical Exam General Appearance: Moderate Distress HEENT: Normal ENT Inspection, Pharynx Normal, TMs Normal Neck: Full Range of Motion, Non-Tender, Normal, Normal Inspection Respiratory: Chest Non-Tender, Lungs Clear, No Accessory Muscle Use, No Respiratory Distress, Normal Breath Sounds Cardiovascular: No Edema, No JVD, No Murmur, No Gallop, Normal Peripheral Pulses, Regular Rate/Rhythm Breast Exam: Deferred Gastrointestinal: No Organomegaly, Non Tender, No Pulsatile Mass, Normal Bowel Sounds, Soft Genitalia: Deferred Pelvic: Deferred Rectal: Deferred Extremities: No calf tenderness, Normal capillary refill, Normal inspection, Normal range of motion, Non-tender, Pedal edema Musculoskeletal : Apperance: Normal Neurologic: Alert, diversional therapist's assistant II-XII nml as Tested, No Motor Deficits, Normal Affect, Normal Mood, No Sensory Deficits Cerebellar Function: Normal Reflexes: Normal Skin: Dry, Normal Color, Warm Peripheral Pulses: 3+ Radial (R), 3+ Radial (L) Lymphatic: No Adenopathy Was a procedure done? Was a procedure done?: Yes Sedation Sedation?: No Central Line Recorder of insertion practice: Early Interventionist Occupation of jboss architect: Attending Physician Indication: CVP monitoring Room prepared for procedure: Yes Early Interventionist performed hand hygien: Yes Maximal sterile barrier precau: Mask/Eye shield, Sterile gown Skin Preparation: Chlorhexidine gluconate, Providine iodine Skin preparation completely dr: Yes Insertion site: Right, Internal jugular Central line catheter type: Nax-crlguwub-req dialysis Number of lumens: 3 Antiseptic ointment applied to: Yes Post Assessment: Chest X-Ray Differential Diagnosis EXT Differential Diagnosis: Cellulitis, CHF, Deep Vein Thrombosis X-Ray, Labs, Meds, VS Vital Signs Date Time Temp Pulse Resp B/P (MAP) Pulse Ox O2 Delivery O2 Flow Rate FiO2 03/04/25 10:50 84 20 95 Room Air* 0 21 03/04/25 10:21 97.9 83 18 130/63 (85) 97 97.9 03/04/25 06:07 97.8 84 20 142/82 (102) 96 97.8 Lab Test 03/04/25 09:02 03/04/25 07:34 03/04/25 07:13 Range/Units White Blood Count 8.3 4.4-10.8 10^3/uL Red Blood Count 4.17 4.0-5.20 10^6/uL Hemoglobin 11.7 L 12.2-16.2 g/dL Hematocrit 36.0 36.0-46.0 % Mean Corpuscular Volume 86.5 80.0-100.0 fL Mean Corpuscular Hemoglobin 28.0 28.0-32.0 pg Mean Corpuscular Hemoglobin Concent 32.4 32.0-36.0 g/dL Red Cell Distribution Width 16.7 H 11.8-14.3 % Platelet Count 326 140-450 10^3/uL Mean Platelet Volume 8.0 6.9-10.8 fL Neutrophils (%) (Auto) 59.5 37.0-80.0 % Lymphocytes (%) (Auto) 26.0 10.0-50.0 % Monocytes (%) (Auto) 9.6 0.0-12.0 % Eosinophils (%) (Auto) 4.1 0.0-7.0 % Basophils (%) (Auto) 0.8 0.0-2.0 % Neutrophils # (Auto) 4.9 1.6-8.6 10 ^3/uL Lymphocytes # (Auto) 2.1 0.4-5.4 10 ^3/uL Monocytes # (Auto) 0.8 0-1.3 10 ^3/uL Eosinophils # (Auto) 0.3 0-0.8 10 ^3/uL Basophils # (Auto) 0.1 0-0.2 10 ^3/uL Nucleated Red Blood Cells 0.0 % Urine Color Yellow Yellow Urine Clarity Turbid H Clear Urine pH 5.5 5.0-9.0 Urine Specific [place] 1.039 H 1.001-1.035 Urine Protein 1+ H Negative Urine Ketones Negative Negative Urine Blood Trace H Negative /uL Urine Nitrite Negative Negative Urine Bilirubin Negative Negative Urine Urobilinogen 3 H Negative mg/dL Urine Leukocyte Esterase 3+ Negative /uL Urine RBC 13 0 - 4 /hpf Urine Microscopic WBC 40 H 0-5 /HPF Urine Squamous Epithelial Cells Mod <5 /hpf Urine Bacteria None seen None Seen /hpf Urine Mucus Few None Seen Urine Glucose Normal Normal mg/dL Sodium Level 139 136-145 mmol/L Potassium Level 4.7 3.5-5.1 mmol/L Chloride Level 109 H 98-107 mmol/L Carbon Dioxide Level 21 20-31 mmol/L Anion Gap 9 5-15 Blood Urea Nitrogen 10 9-23 mg/dL Creatinine 0.92 0.550-1.02 mg/dL Glomerular Filtration Rate Calc 82 >90 mL/min BUN/Creatinine Ratio 10.9 10.0-20.0 Serum Glucose 94 74-106 mg/dL Calcium Level 9.8 8.7-10.4 mg/dL Troponin I High Sensitivity < 3 L </=34 ng/L B-Type Natriuretic Peptide 11.95 0-100 pg/mL Current Medications Medications (Trade) Dose Ordered Sig/Bela Route Start Time Stop Time Status Last Admin Acetaminophen/ Hydrocodone Bitart ([place] 10/325MG Tab) 1 tab ONCE ONCE PO 03/04/25 11:00 03/04/25 11:01 DC 03/04/25 10:54 Patient alert. Has leg swelling. Psychiatric illness. Vitals stable. She does have ex lap. She caused it upon herself. Denies suicidal or homicidal ideation. Was given Lasix. Reviewed her previous visit. Explained to the patient. Continue monitoring. Time of 1ST Reevaluation: 06:55 Reevaluation 1ST: Unchanged Patient Education/Counseling: Diagnosis, Treatment Family Education/Counseling: No Family Present Departure 1 Departure Time of Disposition: 07:01 Impression: Primary Impression: CHF (congestive heart failure) Qualified Codes: I50.43 - Acute on chronic combined systolic (congestive) and diastolic (congestive) heart failure Additional Impression: HTN (hypertension) Qualified Codes: I10 - Essential (primary) hypertension Disposition: ADMITTED INPATIENT Admit to: Med Surg Condition: Guarded Critical Care Note Critical Care Time?: No Stability Stability form required: No Heart Score Heart Score: Heart Score Response (Comments) Value History N/A 0 EKG N/A 0 Age N/A 0 Risk Factors N/A 0 Troponin N/A 0 Total 0 I personally scribed for MEDHAT VEGA MD ([email or web address]) on 03/04/25 at 06:33. Electronically submitted by Audrey Garcia ([email or web address]). MEDHAT VEGA MD Mar 04, 2025 06:33
[2025-03-04 08:03] LABS: Potassium 4.7 mmol/L (3.5-5.1); Sodium 139 mmol/L (136-145)
[2025-03-04 08:04] LABS: Anion Gap 9 (5-15); Carbon Dioxide 21 mmol/L (20-31)
[2025-03-04 08:05] LABS: Calcium 9.8 mg/dL (8.7-10.4)
[2025-03-04 08:09] LABS: Urine Bacteria None Seen /hpf (None Seen)
[2025-03-04 08:09] LABS: BUN/Creatinine Ratio 10.9 (10.0-20.0); Blood Urea Nitrogen 10 mg/dL (9-23); Glucose 94 mg/dL (74-106)
[2025-03-04 08:12] LABS: Chloride 109 mmol/L (98-107)
[2025-03-04 08:46] LABS: Urine Blood TRACE /uL (Negative); Urine Clarity Turbid (Clear); Urine Color Yellow (Yellow); Urine Mucus FEW (None Seen); Urine Protein, UAD 1+ (Negative); Urine Specific Gravity 1.039 (1.001-1.035); Urine Squamous Epithelial Cell MOD /hpf (<5); Urine Urobilinogen 3 mg/dL (Negative); Urine WBC 40 /HPF (0-5); Urine pH 5.5 (5.0-9.0)
[2025-03-04 09:22] LABS: Basophils # (auto) 0.1 10 ^3/uL (0-0.2); Basophils % (auto) 0.8 % (0.0-2.0); Eosinophils # (auto) 0.3 10 ^3/uL (0-0.8); Eosinophils % (auto) 4.1 % (0.0-7.0); Hemoglobin 11.7 g/dL (12.2-16.2); Lymphocytes # (auto) 2.1 10 ^3/uL (0.4-5.4); Mean Corpuscular Hgb Conc. 32.4 g/dL (32.0-36.0); Mean Corpuscular Volume 86.5 fL (80.0-100.0); Monocytes # (auto) 0.8 10 ^3/uL (0-1.3); Monocytes % (auto) 9.6 % (0.0-12.0); Neutrophils # (auto) 4.9 10 ^3/uL (1.6-8.6); Neutrophils % (auto) 59.5 % (37.0-80.0); Platelet Count (auto) 326 10^3/uL (140-450); Red Blood Cells 4.17 10^6/uL (4.0-5.20); Red Cell Distribution Width 16.7 % (11.8-14.3); White Blood Cell 8.3 10^3/uL (4.4-10.8)
[2025-03-04 10:50] VITALS: PULSE 84; RESP 20; O2SAT 95
[2025-03-04] MEDS: HYDROcodone-ACET 10/325MG TAB PO ONE (10:54)
[2025-03-04] MEDS ORDERED: DOCU-94 PO (11:10)
[2025-03-04] MEDS ORDERED: SENN-58 PO (11:10)
[2025-03-04] MEDS ORDERED: LAM100T PO (11:10)
[2025-03-04] MEDS ORDERED: MIR30T PO (11:10)
[2025-03-04] MEDS ORDERED: HYDR25CA PO (11:11)
[2025-03-04] MEDS ORDERED: ACETAMINOPHEN 325 MG TAB PO PRN (11:15)
[2025-03-04] MEDS ORDERED: MORPHINE SULFATE INJ 2 MG/ml SYRG IV PRN (11:15)
[2025-03-04] MEDS ORDERED: NITROGLYCERIN 0.4 MG SL TAB SL PRN (11:15)
[2025-03-04] MEDS ORDERED: ONDANSETRON HCL 4 MG/2 ML VIAL IV PRN (11:15)
--- NOTE | 2025-03-04 11:44 | DVHHP2 ---
History of Present Illness Reason for Visit: Shortness of breath with palpitations History of Present Illness Belkis Pang is a 39-year-old female with past medical history of hypertension, asthma, schizophrenia, bipolar disease, blood clot, anxiety, depression, PTSD, PCOS, bowel perf with bowel obstruction with ex lap x10 who presents to the ED with shortness of breath with palpitations, bilateral lower extremity swelling 4+, and with back pain x5 months. Patient reports that she has noticed swelling bilateral lower extremities also bilateral upper extremities and her abdomen. Patient reports palpitations but no chest pain. Patient denies any recent sick contacts, recent trauma or injury, recent illnesses, recent travels, abdominal pain, nausea, vomiting, or diarrhea. Patient also reports that she is compliant with her medications. Upon examination bilateral upper extremities noted to have scar albright from wounds. Cardiovascular: HTN Pulmonary: Asthma Psych: Anxiety, Bipolar, Depression, Other (PTSD), Schizophrenia Past Medical History PCOS Past Surgical History: Other (Ex laps times 10) Smoke: <1 pack per day ALCOHOL: none Drugs: Marijuana Lives: with Family Domestic Violence: Neg Review of Systems Respiratory: Shortness of breath Cardiovascular: Palpitations, Edema Musculoskeletal: back pain Allergies: Coded Allergies: Bupropion (Verified Allergy, Severe, SEIZURES, 12/23/11) Ephedrine (Verified Allergy, Severe, HIVES, 12/23/11) Haloperidol (Verified Allergy, Severe, JAW LOCK, AIRWAY SWELLING, 12/23/11) Phenobarbital (Verified Allergy, Severe, HIVES, 12/23/11) Theophylline (Verified Allergy, Severe, HIVES, 12/23/11) Ceftriaxone (Verified Allergy, Unknown, HIVES, 02/01/24) Iodine (Verified Allergy, Unknown, 04/20/23) Penicillins (Verified Allergy, Unknown, HIVES, 02/01/24) Piperacillin (Verified Allergy, Unknown, 04/06/21) Tazobactam (Verified Allergy, Unknown, 04/06/21) Medications Current Medications Medications Dose Ordered Sig/Bela Route Start Time Stop Time Status Last Admin Dose Admin Ciprofloxacin 200 ml @ 200 mls/hr Q8HR IV 03/04/25 11:15 UNV Furosemide 40 mg TID IV 03/04/25 14:00 UNV Acetaminophen/ Hydrocodone Bitart 1 tab Q4HP PRN PO 03/04/25 11:15 UNV Ondansetron HCl 4 mg Q4HP PRN IV 03/04/25 11:15 UNV Acetaminophen 650 mg Q6HP PRN PO 03/04/25 11:15 UNV Nitroglycerin 0.4 mg Q5MINP PRN SL 03/04/25 11:15 UNV Morphine Sulfate 2 mg Q30M PRN IV 03/04/25 11:15 UNV Exam Vital Signs Vital Signs Date Time Temp Pulse Resp B/P (MAP) Pulse Ox O2 Delivery O2 Flow Rate FiO2 03/04/25 10:50 84 20 95 Room Air* 0 21 03/04/25 10:21 97.9 130/63 (85) 97.9 General Appearance: Alert, Oriented X3, Cooperative, No acute distress HEENT: Atraumatic, PERRLA, EOMI, Mucous membr. moist/pink Respiratory: Normal air movement Cardiovascular: Regular rate, Normal S1, Normal S2, No murmurs Abdominal: Soft, No tenderness, No hepatospenomegaly, No masses Extremities: No cyanosis Neuro: Normal gait, Normal speech, Strength at 5/5 X4 ext, Normal tone, Sensation intact Psych/Mental Status: Mental status NL, Mood NL Labs/Xrays Labs Test 03/04/25 09:02 03/04/25 07:34 03/04/25 07:13 Range/Units White Blood Count 8.3 4.4-10.8 10^3/uL Red Blood Count 4.17 4.0-5.20 10^6/uL Hemoglobin 11.7 L 12.2-16.2 g/dL Hematocrit 36.0 36.0-46.0 % Mean Corpuscular Volume 86.5 80.0-100.0 fL Mean Corpuscular Hemoglobin 28.0 28.0-32.0 pg Mean Corpuscular Hemoglobin Concent 32.4 32.0-36.0 g/dL Red Cell Distribution Width 16.7 H 11.8-14.3 % Platelet Count 326 140-450 10^3/uL Mean Platelet Volume 8.0 6.9-10.8 fL Neutrophils (%) (Auto) 59.5 37.0-80.0 % Lymphocytes (%) (Auto) 26.0 10.0-50.0 % Monocytes (%) (Auto) 9.6 0.0-12.0 % Eosinophils (%) (Auto) 4.1 0.0-7.0 % Basophils (%) (Auto) 0.8 0.0-2.0 % Neutrophils # (Auto) 4.9 1.6-8.6 10 ^3/uL Lymphocytes # (Auto) 2.1 0.4-5.4 10 ^3/uL Monocytes # (Auto) 0.8 0-1.3 10 ^3/uL Eosinophils # (Auto) 0.3 0-0.8 10 ^3/uL Basophils # (Auto) 0.1 0-0.2 10 ^3/uL Nucleated Red Blood Cells 0.0 % Urine Color Yellow Yellow Urine Clarity Turbid H Clear Urine pH 5.5 5.0-9.0 Urine Specific [place] 1.039 H 1.001-1.035 Urine Protein 1+ H Negative Urine Ketones Negative Negative Urine Blood Trace H Negative /uL Urine Nitrite Negative Negative Urine Bilirubin Negative Negative Urine Urobilinogen 3 H Negative mg/dL Urine Leukocyte Esterase 3+ Negative /uL Urine RBC 13 0 - 4 /hpf Urine Microscopic WBC 40 H 0-5 /HPF Urine Squamous Epithelial Cells Mod <5 /hpf Urine Bacteria None seen None Seen /hpf Urine Mucus Few None Seen Urine Glucose Normal Normal mg/dL Sodium Level 139 136-145 mmol/L Potassium Level 4.7 3.5-5.1 mmol/L Chloride Level 109 H 98-107 mmol/L Carbon Dioxide Level 21 20-31 mmol/L Anion Gap 9 5-15 Blood Urea Nitrogen 10 9-23 mg/dL Creatinine 0.92 0.550-1.02 mg/dL Glomerular Filtration Rate Calc 82 >90 mL/min BUN/Creatinine Ratio 10.9 10.0-20.0 Serum Glucose 94 74-106 mg/dL Calcium Level 9.8 8.7-10.4 mg/dL Troponin I High Sensitivity < 3 L </=34 ng/L B-Type Natriuretic Peptide 11.95 0-100 pg/mL Assessment/Plan Assessment/Plan Assessment Palpitations Acute cystitis Bilateral lower extremity swelling probable from ? Heart failure Intractable back pain Tobacco use Marijuana use Morbid obesity History of hypertension History of asthma History of schizophrenia History of bipolar disease History of PCOS to have surgery on 03/17/2025 History of blood clots on apixaban History of PTSD has a history of anxiety History of depression History of bowel perf bowel obstruction ex lap x10 Plan Admit to tele IV antibiotics-ciprofloxacin UA BNP Troponin EKG ordered X-ray lumbar spine ordered Ultrasound bilateral lower extremity venous ordered Chest x-ray ordered Diurese Echo ordered Antiemetics Pain management Home medications reconciled DVT prophylaxis-patient on apixaban PUD prophylaxis-patient on omeprazole Discussed plan of care with patient and nurse Cardiology consult Counseled patient on cessation of tobacco and marijuana use Counseled patient on lifestyle modifications, diet, and exercise Plan discussed with: Patient My Orders Orders - GIANLUCA INTERIANO [employer] Procedure Category Date Status Time Ciprofloxacin PHA 03/04/25 Logged 400mg/200ml (Cipro Iv) 11:15 Furosemide Injection PHA 03/04/25 Logged (Lasix Injection) 14:00 Strict I & O MIAH 03/04/25 In Process 11:03 Daily Weight MIAH 03/04/25 In Process 11:03 Lumbar Spine 3 View XY 03/04/25 Logged 11:03 Bilat Lower Dvt US 03/04/25 Logged 11:03 Admit ADMIT 03/04/25 Transmitted 11:03 Allergies [facility] 03/04/25 In Process 11:03 Code Status CODE 03/04/25 Transmitted 11:03 Hydrocodone-Acet PHA 03/04/25 Logged 5/325mg Tab ([place] 11:15 Ondansetron Hcl PHA 03/04/25 Logged (Zofran) 11:15 Complete Blood Count LAB 03/05/25 Verified 04:00 Comprehensive LAB 03/05/25 Verified Metabolic Panel 04:00 Cardiac DIET 03/04/25 Transmitted Diet-2gna,Lofat,Lochol Lunch Acetaminophen Tablet PHA 03/04/25 Logged (Tylenol Tablet) 11:15 Nitroglycerin PHA 03/04/25 Logged Sublingual (Ntrostat 11:15 Morphine Sulfate PHA 03/04/25 Logged Injection 11:15 Stat Ekg For Chest [facility] 03/04/25 In Process Pain 11:03 Notify Of Changes MIAH 03/04/25 In Process From Base 11:03 Waterproof Bag Sewer For MIAH 03/04/25 In Process 24 Hours 11:03 Emergency Dysrhythmia [facility] 03/04/25 In Process Protocol 11:03 Rhythm Strips Once [facility] 03/04/25 In Process Every Shift 11:03 Oxygen By Nasal RT 03/04/25 Transmitted Cannula 11:03 Echo 2d Mode Cardiac US 03/04/25 Logged DOP 11:03 Chest Xray 1 View XY 03/04/25 Logged 11:11 Electrocardigram EKG 03/04/25 Logged 11:11 Electrocardigram EKG 03/04/25 Logged 12:11 Electrocardigram EKG 03/04/25 Logged 14:11 Date of Service: Mar 04, 2025 Billing Provider: GIANLUCA INTERIANO Common Visit Codes: [id number] INP/OBS CARE (HIGH) GIANLUCA INTERIANO Mar 04, 2025 11:44
[2025-03-04] MEDS ORDERED: clonazePAM 0.5 MG TAB PO PRN (11:45)
--- NOTE | 2025-03-04 11:54 | DVH ---
XY CHEST XRAY 1 VIEW, HISTORY: sob COMPARISON: XY CHEST PORTABLE on DOS: 02/01/24, XY CHEST PORTABLE on DOS: 07/09/23, CXRP on DOS: 2 XY CHEST PORTABLE on DOS: 02/01/24, XY CHEST PORTABLE on DOS: 07/09/23, CXRP on DOS: 06/01/22 TECHNICAL DATA: 1 view of the chest was obtained. FINDINGS: Lines and tubes: None Cardiomediastinal silhouette: normal Pulmonary vasculature: normal Lung expansion: normal Lung airspace: normal Lung interstitium: normal Pleura: normal Pneumothorax: no Bones: Unremarkable Other: no IMPRESSION: No acute intrathoracic abnormality.
--- NOTE | 2025-03-04 12:00 | DVH ---
XY LUMBAR SPINE 3 VIEW, HISTORY: back pain COMPARISON: None TECHNICAL DATA: Frontal and lateral views were obtained of the lumbar spine . FINDINGS: There are 5 lumbar type vertebral bodies. Lumbar curvature is within normal limits. There is no spond ylolisthesis. Mild compression of L3 due to a large Schmorl node. Vertebral body heights are otherwis e maintained. Disk heights are narrow at L3-4. The facet joints appear degenerative. The sacroiliac j oints are symmetric. Paraspinal soft tissues are within normal limits. IMPRESSION: Mild compression of L3 due to a large Schmorl node. No acute fracture or dislocation of the lumbar spine.
--- NOTE | 2025-03-04 12:01 | DVH ---
Bilateral lower extremity venous Doppler INDICATION: swelling and pain TECHNIQUE: Duplex venous sonography was performed with real-time and flow sensitive images submitted for evaluation. FINDINGS: Normal phasic venous flow. Veins are fully compressible. No filling defects. IMPRESSION: 1. No evidence of deep vein thrombosis. Possible mireles's cyst or resolving hematoma proximal left zack f muscles
[2025-03-04 14:30] VITALS: BP 130/63; PULSE 87; RESP 18; TEMP 97.9; O2SAT 96
--- NOTE | 2025-03-04 16:44 | DVHINCON2 ---
Date Seen: Mar 04, 2025 Referring Physician EMILIA Phelps Reason for Consultation Palpitations History of Present Illness This is a 39-year-old female patient who presents to emergency room with chief complaint of bilateral lower extremity edema and pain for one month. The patient also mentions intermittent palpitations. Cardiology has been consulted for further evaluation. The patient seen in the emergency room lobby. No twelve lead electrocardiogram done by time of assessment. The patient also not connected to any grey washer. Unable to verify patient rhythm. Initial troponin level negative. Significant past medical history includes hypertension, DVTs (on Eliquis), small-bowel obstruction, suicidal attempts, and schizophrenia, morbid obesity. Past Medical History Past medical history reviewed. No other significant than mentioned above. Past Surgical History Multiple abdominal surgeries per patient Multiple bowel resections Cholecystectomy Family History: Alcoholism Asthma G8 FATHER Chronic obstructive pulmonary disease G8 FATHER Diabetes mellitus G8 FATHER FH: atrial fibrillation G8 FATHER FH: kidney disease G8 FATHER FH: obesity G8 FATHER FHx: multiple sclerosis G8 MOTHER FHx: polycystic ovary G8 MOTHER Family History Family history reviewed. Social History Patient has a five pack-year history, smokes approximately one pack per day Admits to occasional marijuana use Denies any alcohol use Allergies: Coded Allergies: Bupropion (Verified Allergy, Severe, SEIZURES, 12/23/11) Ephedrine (Verified Allergy, Severe, HIVES, 12/23/11) Haloperidol (Verified Allergy, Severe, JAW LOCK, AIRWAY SWELLING, 12/23/11) Phenobarbital (Verified Allergy, Severe, HIVES, 12/23/11) Theophylline (Verified Allergy, Severe, HIVES, 12/23/11) Ceftriaxone (Verified Allergy, Unknown, HIVES, 02/01/24) Iodine (Verified Allergy, Unknown, 04/20/23) Penicillins (Verified Allergy, Unknown, HIVES, 02/01/24) Piperacillin (Verified Allergy, Unknown, 04/06/21) Tazobactam (Verified Allergy, Unknown, 04/06/21) Home Meds Active Scripts Ibuprofen (Ibuprofen) 800 Mg Tab, 1 TAB PO TID, #30 TAB Prov:NORMA WILKINSON 01/10/23 Reported Medications Hydroxyzine Pamoate (Vistaril) 25 Mg Cap, 100 MG PO DAILY PRN for ANXIETY, CAP 03/04/25 Mirtazapine (Remeron) 30 Mg Tb, 1 TAB PO QPM, #30 TAB 1 Refill 03/04/25 Lamotrigine (LAMICTAL) 100 Mg Tab, 200 MG PO DAILY, TAB 03/04/25 Senna (Senokot) 8.6 Mg Tab, 2 TAB PO BID for constipation, #40 TAB 03/04/25 Docusate Sodium (Colace) 100 Mg Cap, 100 MG PO BID, CAP 03/04/25 Hydrocodone-Acetaminophen (Hydrocodone/Acetaminophen 10-325 mg) 1 Tab Tab 08/03/24 Methocarbamol (Methocarbamol) 750 Mg Tab, 1 TAB PO BID 08/03/24 Ondansetron HCl (Ondansetron) 4 Mg Tab, 4 MG 08/03/24 Potassium Chloride (Potassium Chloride ER) 20 Meq Tab, 1 TAB PO DAILY 07/10/23 Gabapentin (Gabapentin) 600 Mg Tab, 1200 MG PO TID, MG 07/09/23 Furosemide (Lasix) 40 Mg Tab, 40 MG PO DAILY, TAB 05/24/23 Budesonide-Formoterol Fumarate (Budesonide/Formoterol Fum 160-4.5 Mcg/Act) 1 Aer Aer, 1 AER IN BID, AER 04/07/21 Buspirone Hcl (Buspirone Hcl) 15 Mg Tab, 15 MG PO TID for 30 Days 04/07/21 Apixaban Base (ELIQUIS) 5 Mg Tab, 5 MG PO BID, TAB 04/07/21 Propranolol Hcl (Inderal La) 60 Mg Cap, 10 MG PO TID, CAP 04/07/21 Clonazepam (Klonopin) 0.5 Mg Tab, 1 MG PO TID PRN for ANXIETY 12/23/11 Discontinued Reported Medications Clonazepam (Clonazepam) 1 Mg Tab, 1 TAB PO DAILY 08/03/24 Omeprazole (Omeprazole Dr) 40 Mg Cap 08/03/24 Cetirizine HCl (Cetirizine Hydrochloride) 10 Mg Tab, 1 TAB PO DAILY 08/03/24 Celecoxib (Celecoxib) 100 Mg Cap, 1 CAP PO BID 08/03/24 Propranolol HCl (Propranolol Hydrochloride) 10 Mg Tab, 1 TAB PO TID 08/03/24 Lamotrigine (LAMOTRIGINE ER) 200 Mg Tab, 1 TAB PO DAILY 08/03/24 Methocarbamol (Robaxin) 1,000 Mg/10 Ml Inj, 750 MG PO BID, INJ 07/09/23 Duloxetine Hcl (Cymbalta) 60 Mg Cap, 1 CAP PO DAILY, #90 CAP 3 Refills 05/25/23 Lamotrigine (Lamotrigine) 100 Mg Tab, 50 MG PO TID, TAB 05/24/23 Omeprazole (Gnp Omeprazole) 20 Mg Tab, 40 MG PO DAILY for ACID REFLEX, TAB 05/24/23 Hydrocodone-Acetaminophen (Hydrocodone Bitartrate/AC 5-325 mg) 1 Tab Tab, 1 TAB PO TIDPRN, TAB 04/07/21 Home Meds Home medications reviewed. Current Medications Current Medications Medications (Trade) Dose Ordered Sig/Bela Route PRN Reason Start Time Stop Time Status Last Admin Ciprofloxacin 200 ml @ 200 mls/hr Q8HR IV 03/04/25 11:15 Furosemide (Lasix Injection) 40 mg TID IV 03/04/25 14:00 Acetaminophen/ Hydrocodone Bitart ([place] 5/325MG Tab) 1 tab Q4HP PRN PO MODERATE PAIN (4-6 PAIN SCALE) 03/04/25 11:15 Ondansetron HCl (Zofran) 4 mg Q4HP PRN IV NAUSEA / VOMITING 03/04/25 11:15 Acetaminophen (Tylenol Tablet) 650 mg Q6HP PRN PO PAIN SCALE 1-3 OR TEMP>100.4 03/04/25 11:15 Nitroglycerin (Ntrostat Sublingual) 0.4 mg Q5MINP PRN SL FOR CHEST PAIN 03/04/25 11:15 Morphine Sulfate 2 mg Q30M PRN IV FOR CHEST PAIN 03/04/25 11:15 Apixaban (Eliquis) 5 mg BID PO 03/04/25 22:00 Docusate Sodium (Colace Capsule) 100 mg BID PO 03/04/25 22:00 Hydroxyzine Pamoate (Vistaril Oral) 100 mg DAILY PRN PO ANXIETY 03/04/25 11:30 Lamotrigine (LaMICtal TABLET) 200 mg DAILY PO 03/05/25 10:00 Mirtazapine (Remeron Tablet) 30 mg HS PO 03/04/25 22:00 Sennosides (Senokot Tablet) 17.2 mg BID PO 03/04/25 22:00 Buspirone HCl (Buspar Tablet) 15 mg TID PO 03/04/25 14:00 Gabapentin (Neurontin Capsule) 1,200 mg TID PO 03/04/25 14:00 Methocarbamol (Robaxin) 750 mg BID PO 03/04/25 22:00 Potassium Chloride (Klor-Con Tablet) 20 meq DAILY PO 03/05/25 10:00 Propranolol HCl (Inderal Tablet) 10 mg TID PO 03/04/25 14:00 Clonazepam (KlonoPIN TABLET) 1 mg TID PRN PO ANXIETY 03/04/25 11:45 Budesonide (Pulmicort) 0.5 mg BID NEB 03/04/25 22:00 Review of Systems Constitutional: No symptom reported Ears, Nose, & Throat: No symptom reported Eyes: No symptom reported Neurological: No symptoms reported Pulmonary/Respiratory: No symptoms reported Cardiovascular: Palpitations, bilateral lower extremity edema Gastrointestinal: No symptom reported Genitourinary: No symptom reported Musculoskeletal: No symptom reported Skin: No symptom reported Psychiatric: No symptom reported Endocrine: No symptom reported Hematologic/Lymphatic: No symptom reported Vital Signs Vital Signs Date Time Temp Pulse Resp B/P (MAP) Pulse Ox O2 Delivery O2 Flow Rate FiO2 03/04/25 14:30 96 Room Air* 0 21 03/04/25 14:30 97.9 87 18 130/63 97.9 Physical Exam General Appearance: Cooperative. Morbidly obese Pulmonary/Respiratory: Clear, bilateral breaths sounds. Cardiovascular/Chest: Regular rate and rhythm. Peripheral Pulses: 2+ Radial (R). 2+ Radial (L). 2+ Pedal (R). 2+ Pedal (L) Abdominal Exam: Normal bowel sounds. Ankle Exam: 4+ pitting edema Lower extremities: 4+ pitting edema Neuro/Mental Status: A/OX4, coherent. Thoughts/Psych: Normal thought pattern. Appropriate mood and affect. Good judgment and insight. Appearance: No acute distress. Skin Exam: Normal inspection. Normal color. Warm and dry. Labs/Diagnostic Data Labs Test 03/04/25 09:02 03/04/25 07:34 03/04/25 07:13 Range/Units White Blood Count 8.3 4.4-10.8 10^3/uL Red Blood Count 4.17 4.0-5.20 10^6/uL Hemoglobin 11.7 L 12.2-16.2 g/dL Hematocrit 36.0 36.0-46.0 % Mean Corpuscular Volume 86.5 80.0-100.0 fL Mean Corpuscular Hemoglobin 28.0 28.0-32.0 pg Mean Corpuscular Hemoglobin Concent 32.4 32.0-36.0 g/dL Red Cell Distribution Width 16.7 H 11.8-14.3 % Platelet Count 326 140-450 10^3/uL Mean Platelet Volume 8.0 6.9-10.8 fL Neutrophils (%) (Auto) 59.5 37.0-80.0 % Lymphocytes (%) (Auto) 26.0 10.0-50.0 % Monocytes (%) (Auto) 9.6 0.0-12.0 % Eosinophils (%) (Auto) 4.1 0.0-7.0 % Basophils (%) (Auto) 0.8 0.0-2.0 % Neutrophils # (Auto) 4.9 1.6-8.6 10 ^3/uL Lymphocytes # (Auto) 2.1 0.4-5.4 10 ^3/uL Monocytes # (Auto) 0.8 0-1.3 10 ^3/uL Eosinophils # (Auto) 0.3 0-0.8 10 ^3/uL Basophils # (Auto) 0.1 0-0.2 10 ^3/uL Nucleated Red Blood Cells 0.0 % Urine Color Yellow Yellow Urine Clarity Turbid H Clear Urine pH 5.5 5.0-9.0 Urine Specific [place] 1.039 H 1.001-1.035 Urine Protein 1+ H Negative Urine Ketones Negative Negative Urine Blood Trace H Negative /uL Urine Nitrite Negative Negative Urine Bilirubin Negative Negative Urine Urobilinogen 3 H Negative mg/dL Urine Leukocyte Esterase 3+ Negative /uL Urine RBC 13 0 - 4 /hpf Urine Microscopic WBC 40 H 0-5 /HPF Urine Squamous Epithelial Cells Mod <5 /hpf Urine Bacteria None seen None Seen /hpf Urine Mucus Few None Seen Urine Glucose Normal Normal mg/dL Sodium Level 139 136-145 mmol/L Potassium Level 4.7 3.5-5.1 mmol/L Chloride Level 109 H 98-107 mmol/L Carbon Dioxide Level 21 20-31 mmol/L Anion Gap 9 5-15 Blood Urea Nitrogen 10 9-23 mg/dL Creatinine 0.92 0.550-1.02 mg/dL Glomerular Filtration Rate Calc 82 >90 mL/min BUN/Creatinine Ratio 10.9 10.0-20.0 Serum Glucose 94 74-106 mg/dL Calcium Level 9.8 8.7-10.4 mg/dL Troponin I High Sensitivity < 3 L </=34 ng/L B-Type Natriuretic Peptide 11.95 0-100 pg/mL Assessment Palpitations, rule out cardiac arrhythmia Rule out structural heart disease Hypertension History of DVTs (on Eliquis) History of small-bowel obstruction status post multiple abdominal surgeries History of suicidal attempt Schizophrenia Morbid obesity Tobacco use Plan/Recommendation We will continue with the following plan/recommendations (Dr. Melchor): We will proceed with obtaining a transthoracic echocardiogram to evaluate cardiac function. The patient will need a baseline twelve lead electrocardiogram. Recommend continuous telemetry monitoring to assess for any arrhythmias. Thank you for allowing us to care for this patient. Please call with any questions or concerns. Critical care time spent: 44 minutes This medical document was created using an electronic medical record system with voice recognition software and computerized dictation system. Although this document has been carefully reviewed, there might still be some phonetic and typographical errors. Occasional wrong-word or ``sound-alike substitutions may have occurred due to the inherent limitations of voice recognition software. These areas are purely typographical due to imperfections of the software programs and do not reflect any compromise in the patient's medical care. Please read the chart carefully and recognize, using context, where these substitutions have occurred. Plan discussed with: Patient NYHA Physical activity limitations: NA Date of Service: Mar 04, 2025 Billing Provider: RACHNA QUIROZ Cardiology Common Codes: [id number] INP/OBS CARE (High) Cardiology Consultation Codes: [id number] CONSULT <45MIN RACHNA QUIROZ Mar 04, 2025 16:44
[2025-03-04 17:45] LABS: Magnesium 2.1 mg/dL (1.6-2.6)
[2025-03-04 18:40] VITALS: BP 148/87; PULSE 90; RESP 18; TEMP 98.1; O2SAT 92
[2025-03-04] MEDS: GABAPENTIN 400 MG CAP PO SCH (18:54)
[2025-03-04] MEDS: FUROSEMIDE 40 MG/4 ML VIAL IV SCH (18:54)
[2025-03-04] MEDS: busPIRone HCL 10 MG TAB PO SCH (18:54)
[2025-03-04] MEDS: CIPROFLOXACIN 400MG/200ML 200 ML IV SCH (18:54)
[2025-03-04] MEDS: PROPRANOLOL HCL 20 MG TAB PO SCH (18:54)
--- NOTE | 2025-03-04 19:20 | DVH ---
CHEST RADIOGRAPH Indication: CENTRAL LINE PLACEMENT Technique: Single frontal view of the chest was obtained Comparison: XY CHEST XRAY 1 VIEW on DOS: 03/04/25, XY CHEST PORTABLE on DOS: 02/01/24, XY CHEST PORTABL E on DOS: 07/09/23, CXRP on DOS: 06/01/22, CHEST PORTABLE on DOS: 06/01/22 FINDINGS: Lines and Tubes: Right central venous catheter tip overlying the SVC. Lungs: No focal consolidation. Pleura: No effusion. No pneumothorax. Cardiomediastinal contours: Unremarkable Bones: No acute osseous abnormality. IMPRESSION: No acute cardiopulmonary disease.
[2025-03-04] MEDS: SENNA 8.6 MG TAB PO SCH (22:00)
[2025-03-04] MEDS: BUDESONIDE (INHALATION) 0.5 MG/2 ML NEB NEB SCH (22:00)
[2025-03-04] MEDS: DOCUSATE SOD 100 MG CAP PO SCH (22:00)
[2025-03-04] MEDS: MIRTAZAPINE 30 MG TAB PO SCH (22:00)
[2025-03-04] MEDS: hydrOXYzine 25 MG TAB or CAP PO PRN (22:49)
[2025-03-04] MEDS: METHOCARBAMOL 500 MG TAB PO SCH (22:50)
[2025-03-04] MEDS: APIXABAN 5 MG TAB PO SCH (22:52)
[2025-03-05 05:00] VITALS: BP 132/82; PULSE 81; RESP 17; TEMP 97.3; O2SAT 90
[2025-03-05] MEDS: HYDROcodone-ACET 5/325MG TAB PO PRN (08:43)
--- NOTE | 2025-03-05 09:30 | DVHPN2 ---
Consult Progress Note Subjective Other Systems: Remains in normal sinus rhythm on cardiac nurse practitioner. No cardiac events noted overnight. Objective vital signs Vital Sign Date Time Temp Pulse Resp B/P (MAP) Pulse Ox O2 Delivery O2 Flow Rate FiO2 03/05/25 06:00 81 132/82 03/05/25 05:00 97.3 17 90 97.3 03/04/25 19:00 Room Air* 0 21 Total Intake and Output 03/04/25 03/04/25 03/05/25 15:00 23:00 07:00 Intake Total 0 ml Balance 0 ml medications Current Medications Medications Dose Ordered Sig/Bela Route Start Time Stop Time Status Last Admin Dose Admin Ciprofloxacin 200 ml @ 200 mls/hr Q8HR IV 03/04/25 11:15 03/05/25 06:00 200 MLS/HR Furosemide 40 mg TID IV 03/04/25 14:00 03/05/25 06:00 40 MG Acetaminophen/ Hydrocodone Bitart 1 tab Q4HP PRN PO 03/04/25 11:15 03/05/25 08:43 1 TAB Ondansetron HCl 4 mg Q4HP PRN IV 03/04/25 11:15 Acetaminophen 650 mg Q6HP PRN PO 03/04/25 11:15 Nitroglycerin 0.4 mg Q5MINP PRN SL 03/04/25 11:15 Morphine Sulfate 2 mg Q30M PRN IV 03/04/25 11:15 Apixaban 5 mg BID PO 03/04/25 22:00 03/04/25 22:52 5 MG Docusate Sodium 100 mg BID PO 03/04/25 22:00 Hydroxyzine Pamoate 100 mg DAILY PRN PO 03/04/25 11:30 03/04/25 22:49 100 MG Lamotrigine 200 mg DAILY PO 03/05/25 10:00 Mirtazapine 30 mg HS PO 03/04/25 22:00 Sennosides 17.2 mg BID PO 03/04/25 22:00 Buspirone HCl 15 mg TID PO 03/04/25 14:00 03/04/25 22:49 15 MG Gabapentin 1,200 mg TID PO 03/04/25 14:00 03/04/25 22:50 1,200 MG Methocarbamol 750 mg BID PO 03/04/25 22:00 03/04/25 22:50 750 MG Potassium Chloride 20 meq DAILY PO 03/05/25 10:00 Propranolol HCl 10 mg TID PO 03/04/25 14:00 Clonazepam 1 mg TID PRN PO 03/04/25 11:45 Budesonide 0.5 mg BID NEB 03/04/25 22:00 Examination: GENERAL:Normal, LUNGS:Normal, CVS:Normal, NEURO:Normal laboratory and microbiology Laboratory Tests 03/04/25 09:02 03/04/25 07:13 Test 03/04/25 07:13 Range/Units Serum Glucose 94 74-106 mg/dL Problem List/Assessment/Plan Problem List/Assessment/Plan Palpitations, rule out cardiac arrhythmia Rule out structural heart disease Hypertension Dyslipidemia History of DVTs (on Eliquis) History of small-bowel obstruction status post multiple abdominal surgeries History of suicidal attempt Schizophrenia Morbid obesity Tobacco use Polysubstance use Plan/Recommendation (Dr. Melchor): We will proceed with obtaining a transthoracic echocardiogram to evaluate cardiac function. A baseline twelve lead electrocardiogram was obtained by day shift RN and reveals normal sinus rhythm without any significant ST segment changes. The patient denies any cardiac symptoms at time of assessment. In the setting of an unremarkable echocardiogram, there is no further inpatient cardiac workup indicated at this time. The patient may follow up with Cardiology in the outpatient setting. Consider outpatient event monitor if deemed necessary. Thank you for allowing us to care for this patient. Please call with any questions or concerns. This medical document was created using an electronic medical record system with voice recognition software and computerized dictation system. Although this document has been carefully reviewed, there might still be some phonetic and typographical errors. Occasional wrong-word or ``sound-alike substitutions may have occurred due to the inherent limitations of voice recognition software. These areas are purely typographical due to imperfections of the software programs and do not reflect any compromise in the patient's medical care. Please read the chart carefully and recognize, using context, where these substitutions have occurred. Plan discussed with: Patient Date of Service: Mar 05, 2025 Billing Provider: RACHNA QUIROZ Common Visit Codes: [id number] INP/OBS CARE(HIGH) RACHNA QUIROZ Mar 05, 2025 09:30
[2025-03-05] MEDS: POTASSIUM CHL 20 Meq TABLET PO SCH (10:22)
[2025-03-05] MEDS: lamoTRIgine 100 MG TAB PO SCH (10:23)
--- NOTE | 2025-03-05 10:44 | ECG ---
[facility] Test Date: 2025-03-05 Test Time: 10:41:13 Pat Name: TRISH SYKES Department: Room: 0204T A Gender: F Circulation Assistant: CATALINA : [id number] Requested By: KWESI PARRA Order Number: [id number] Reading MD: Brayan Melchor Measurements Intervals [place] Rate: 87 P: 61 WA: 162 QRS: 68 QRSD: 97 T: 43 QT: 391 QTc: 471 Interpretive Statements Sinus rhythm Electronically Signed On 03-05-2025 13:29:58 PDT by Brayan Melchor Please click the below link to view image of tracing.
[2025-03-05 11:33] LABS: Basophils # (auto) 0.1 10 ^3/uL (0-0.2); Basophils % (auto) 0.7 % (0.0-2.0); Eosinophils # (auto) 0.3 10 ^3/uL (0-0.8); Eosinophils % (auto) 4.1 % (0.0-7.0); Hematocrit 34.8 % (36.0-46.0); Hemoglobin 11.4 g/dL (12.2-16.2); Lymphocytes # (auto) 1.3 10 ^3/uL (0.4-5.4); Lymphocytes % (auto) 15.6 % (10.0-50.0); Mean Corpuscular Hemoglobin 28.1 pg (28.0-32.0); Mean Corpuscular Hgb Conc. 32.7 g/dL (32.0-36.0); Mean Corpuscular Volume 85.7 fL (80.0-100.0); Monocytes # (auto) 0.7 10 ^3/uL (0-1.3); Neutrophils # (auto) 5.9 10 ^3/uL (1.6-8.6); Neutrophils % (auto) 71.6 % (37.0-80.0); Platelet Count (auto) 265 10^3/uL (140-450); Red Blood Cells 4.06 10^6/uL (4.0-5.20); Red Cell Distribution Width 16.2 % (11.8-14.3); White Blood Cell 8.2 10^3/uL (4.4-10.8)
[2025-03-05 11:52] LABS: Alanine Aminotransferase 33 U/L (7-40); Albumin 4.4 g/dL (3.2-4.8); Alkaline Phosphatase 81 U/L (46-116); Anion Gap 6 (5-15); Aspartate Aminotransferase 36 U/L (13-40); BUN/Creatinine Ratio 14.1 (10.0-20.0); Bilirubin, Total 0.5 mg/dL (0.2-1.0); Blood Urea Nitrogen 11 mg/dL (9-23); Calcium 9.7 mg/dL (8.7-10.4); Carbon Dioxide 29 mmol/L (20-31); Chloride 105 mmol/L (98-107); Glucose 101 mg/dL (74-106); Potassium 3.7 mmol/L (3.5-5.1); Sodium 140 mmol/L (136-145); Total Protein 6.9 g/dL (5.7-8.2)
[2025-03-05] MEDS ORDERED: ACETAMINOPHEN 325 MG TAB PO PRN (12:30)
[2025-03-05] MEDS ORDERED: HYDROcodone-ACET 10/325MG TAB PO PRN ×2 (12:30→14:45)
[2025-03-05] MEDS: GABAPENTIN 300 MG CAP PO ONE (12:30)
[2025-03-05 13:00] VITALS: BP 140/80; PULSE 108; RESP 20; TEMP 97.3; O2SAT 92
[2025-03-05] MEDS: GABAPENTIN 300 MG CAP PO SCH (14:36)
[2025-03-05 14:38] LABS: Benzodiazephine Screen, Urine Neg (NEGATIVE); Cannabinoid Screen, Urine Pos (NEGATIVE)
[2025-03-05 14:47] LABS: Amphetamine Screen, Urine Neg (NEGATIVE); Barbiturate Scree,Urine Neg (NEGATIVE); Cocaine Screen, Urine Neg (NEGATIVE); Opiate Scree,Urine Pos (NEGATIVE); Phencyclidine Screen, Urine Neg (NEGATIVE)
[2025-03-05] MEDS: KETOROLAC TROMETH 30 MG/ML 1ML VIAL IV ONE (15:06)
--- NOTE | 2025-03-05 15:13 | DVHDSRES ---
Discharge Summary Date of Admission Resident Creating Document: KWESI PARRA RESDIPRAFUL Mar 04, 2025 at 11:03 Date of Discharge: Mar 05, 2025 Admitting Diagnosis Palpitation Labs/Diagnostic Data: Laboratory Results Test 03/05/25 13:39 03/05/25 11:15 03/04/25 09:02 03/04/25 07:34 Urine Opiates Screen Pos (NEGATIVE) Urine Fentanyl Screen Pos (NEGATIVE) Urine Barbiturates Screen Neg (NEGATIVE) Urine Phencyclidine Screen Neg (NEGATIVE) Urine Amphetamines Screen Neg (NEGATIVE) Urine Benzodiazepines Screen Neg (NEGATIVE) Urine Cocaine Screen Neg (NEGATIVE) Urine Cannabinoids Screen Pos (NEGATIVE) White Blood Count 8.2 10^3/uL (4.4-10.8) Red Blood Count 4.06 10^6/uL (4.0-5.20) Hemoglobin 11.4 g/dL (12.2-16.2) Hematocrit 34.8 % (36.0-46.0) Mean Corpuscular Volume 85.7 fL (80.0-100.0) Mean Corpuscular Hemoglobin 28.1 pg (28.0-32.0) Mean Corpuscular Hemoglobin Concent 32.7 g/dL (32.0-36.0) Red Cell Distribution Width 16.2 % (11.8-14.3) Platelet Count 265 10^3/uL (140-450) Mean Platelet Volume 7.6 fL (6.9-10.8) Neutrophils (%) (Auto) 71.6 % (37.0-80.0) Lymphocytes (%) (Auto) 15.6 % (10.0-50.0) Monocytes (%) (Auto) 8.0 % (0.0-12.0) Eosinophils (%) (Auto) 4.1 % (0.0-7.0) Basophils (%) (Auto) 0.7 % (0.0-2.0) Neutrophils # (Auto) 5.9 10 ^3/uL (1.6-8.6) Lymphocytes # (Auto) 1.3 10 ^3/uL (0.4-5.4) Monocytes # (Auto) 0.7 10 ^3/uL (0-1.3) Eosinophils # (Auto) 0.3 10 ^3/uL (0-0.8) Basophils # (Auto) 0.1 10 ^3/uL (0-0.2) Nucleated Red Blood Cells 0.0 % Sodium Level 140 mmol/L (136-145) Potassium Level 3.7 mmol/L (3.5-5.1) Chloride Level 105 mmol/L (98-107) Carbon Dioxide Level 29 mmol/L (20-31) Anion Gap 6 (5-15) Blood Urea Nitrogen 11 mg/dL (9-23) Creatinine 0.78 mg/dL (0.550-1.02) Glomerular Filtration Rate Calc 100 mL/min (>90) BUN/Creatinine Ratio 14.1 (10.0-20.0) Serum Glucose 101 mg/dL (74-106) Calcium Level 9.7 mg/dL (8.7-10.4) Total Bilirubin 0.5 mg/dL (0.2-1.0) Aspartate Amino Transferase (AST) 36 U/L (13-40) Alanine Aminotransferase (ALT) 33 U/L (7-40) Alkaline Phosphatase 81 U/L (46-116) Total Protein 6.9 g/dL (5.7-8.2) Albumin 4.4 g/dL (3.2-4.8) Hemoglobin A1c 5.5 % A1C (<5.7) Urine Color Yellow (Yellow) Urine Clarity Turbid (Clear) Urine pH 5.5 (5.0-9.0) Urine Specific [place] 1.039 (1.001-1.035) Urine Protein 1+ (Negative) Urine Ketones Negative (Negative) Urine Blood Trace /uL (Negative) Urine Nitrite Negative (Negative) Urine Bilirubin Negative (Negative) Urine Urobilinogen 3 mg/dL (Negative) Urine Leukocyte Esterase 3+ /uL (Negative) Urine RBC 13 /hpf (0 - 4) Urine Microscopic WBC 40 /HPF (0-5) Urine Squamous Epithelial Cells Mod /hpf (<5) Urine Bacteria None seen /hpf (None Seen) Urine Mucus Few (None Seen) Urine Glucose Normal mg/dL (Normal) Test 03/04/25 07:13 Magnesium Level 2.1 mg/dL (1.6-2.6) Troponin I High Sensitivity < 3 ng/L (</=34) B-Type Natriuretic Peptide 11.95 pg/mL (0-100) Triglycerides Level 180 mg/dL (< 150) Cholesterol Level 121 mg/dL (< 200) LDL Cholesterol 57 mg/dL (< 100) HDL Cholesterol 37 mg/dL (40-59) Thyroid Stimulating Hormone (TSH) 4.71 uIU/mL (0.55-4.78) Other Laboratory Tests 03/05/25 11:15 Brief Hx & Hospital Course: 39-year-old past medical history hypertension, asthma, bipolar disorder, depression, anxiety, schizophrenia, PTSD, PCOS, spinal stenosis, degenerative disc disease came to the hospital due to bilateral lower limb swelling. Per patient she has bilateral lower limb swelling since 4 months which has progressively worsened since 1 month. She also reports palpitation, shortness of breath, dizziness, abdominal pain, and generalized weakness. She denies fever, chest pain, nausea, vomiting, or any recent bowel and bladder habit changes. Hospital course: Patient was admitted to the hospital for evaluation of pedal edema and palpitation. Serial EKGs showed normal sinus rhythm with no acute ST or T-wave changes. Patient was monitored with telemetry for 48 hours, showed no events. Serial trop was within normal limits. Doppler ultrasound of lower limb was performed and showed no DVT. Lower limb swelling was nonpitting, possibly due to body habitus/obesity. Dilation was consulted, recommended medical management and outpatient follow up. UA shows UTI picture the patient was given ciprofloxacin. During hospital admission home medication were continued. On 03/05/2025, the patient was feeling better since admission. Discharge plan discussed with the patient and the patient discharged to home. Discharge plan: Follow up with the PCP within 1 week of the discharge. Follow up with the pain management upon outpatient basis. Follow up with the Cardiology on outpatient basis. Continue home meds Condition at Discharge: Stable Final Diagnosis/Problems List Complicated UTI Palpitation, no cardiac arrhythmia, likely due to complicated UTI/anxiety Chest pain, noncardiac hypertension asthma bipolar disorder depression anxiety schizophrenia PTSD PCOS Back pain,due to spinal stenosis degenerative disc disease Smoker Polysubstance abuse Morbid obesity History of suicidal edema History of swollen level obstruction History of DVT, on Eliquis Ruled out structural heart disease Ruled out Cystitis Discharge Disposition: Home Discharge Instruct/Medications Diet: Cardiac 2g Na,low cholest Activity: No Restrictions, As Tolerated Follow Up/Referral: Follow up with the PCP within 1 week of the discharge. Follow up with the pain management on outpatient basis. Follow up with the Cardiology on outpatient basis Medications: Continue home meds Discharge Statement: "Patient was advised to return to the ER or call 911 if any headaches, dizziness, shortness of breath, chest pain, abdominal pain, bleeding, fevers, or worsening of medical condition. Patient was counseled about treatment plan, medications, possible side effects, patientverbalized understanding. All questions were answered to the best of my ability. This discharge took greater then 30 minutes in planning, reviewing documentation, counseling the patient, and discussing with other team members." ASSESSMENT ASSESSMENT Assessment Chest pain, noncardiac Palpitation Date of Service: Mar 05, 2025 Billing Provider: JAYY BAUER MD Common Visit Codes: [id number]/[id number] DISCH DAY >30min KWESI PARRA RESDIENT Mar 05, 2025 15:13 JAYY BAUER MD Mar 10, 2025 01:54
[2025-03-05] MEDS ORDERED: CEPH500T PO (15:16)
[2025-03-05 16:50] VITALS: BP 13/92; PULSE 81; TEMP 36.3
[2025-03-05 17:00] VITALS: BP 126/66; PULSE 81; RESP 20; TEMP 97.4; O2SAT 94
--- NOTE | 2025-03-06 01:31 | DVHSR ---
APPROVED REPORT EXAM: LIMITED Two-dimensional and M-mode echocardiogram with Doppler and color Doppler. Blood Pressure: 132/82 mmHg INDICATION sob RISK FACTORS Obesity: Height: 5'3, Weight: 330 DIMENSIONS LVDd5.0 (3.8-5.7cm)LA (2D)4.7 (1.9-4.0cm)Aortic Root3.3 (2.0-3.7cm) LVDs3.6 (2.5-4.0cm)LA (MM) (1.9-4.0cm)Aortic Cusp Exc1.8 (1.5-2.0cm) EF (%) 54.0 (55-70%)Rt. Atrium4.0 (1.9-4.0cm)Asc. Aorta3.1 cm IVSd1.0 (0.7-1.1cm)RV (D)4.1 (1.8-2.4cm) PWd1.0 (0.7-1.1cm) Mitral Valve MitralMitral Stenosis E wave0.93m/sMV Mean GR.mmHg A wave0.71m/sMV Peak GR.mmHg E/A ratio1.32D MVAcm2 DECEL [id number] 1/2 Timems Aortic Valve Aortic ValveAortic Stenosis V11.19m/Otto Mean GR.5mmHg V21.59m/Otto Peak GR.10mmHg LVOT Diameter2.2 (1.8-2.4cm)Doppler AVA2.84cm2 Pulmonic Valve V20.96m/s Other Information Quality : Technically LimitedRhythm : Technically limited study due to pt refused to lay on bed, sitting up Conclusion LV EF IS 60 % AND IS NORMAL NORMAL VALVES NORMAL RV FUNCTION AND SIZE NO EFFUSION
== END 2025-03-05 18:10 | disposition home or self-care (01) | DRG 463 ==
LOC: ER 05:50 → OVERFLOW 11:03 → TELE-CENTR 23:56
PROVIDERS: ADMIT Student in an Organized Health Care Education/Training Program; ATTEND Student in an Organized Health Care Education/Training Program
DX: N39.0 Urinary tract infection, site not specified (principal); E66.01 Morbid (severe) obesity due to excess calories; F41.9 Anxiety disorder, unspecified; F31.9 Bipolar disorder, unspecified; F20.9 Schizophrenia, unspecified; F43.10 Post-traumatic stress disorder, unspecified; I10 Essential (primary) hypertension; J45.909 Unspecified asthma, uncomplicated; Z82.0 Family history of epilepsy and other diseases of the nervous system; Z82.5 Family history of asthma and other chronic lower respiratory diseases; Z83.3 Family history of diabetes mellitus; Z86.718 Personal history of other venous thrombosis and embolism; Z88.0 Allergy status to penicillin; Z91.51 Personal history of suicidal behavior; Z88.8 Allergy status to other drugs, medicaments and biological substances; Z79.899 Other long term (current) drug therapy; Z90.49 Acquired absence of other specified parts of digestive tract; Z87.891 Personal history of nicotine dependence
CPT/HCPCS: 36415; 36556; 71045; 72100; 80048; 80053; 80061; 80307; 81001; 83036; 83735; 83880; 84443; 84484; 85025; 87081; 93005; 93306; 93970; G0378

== ENCOUNTER 2025-05-12 17:21 | Emergency (ER) | payer MEDICAID ==
[~2025-05-12] VITALS: Ht 165.1 cm; Wt 144.0 kg
[~2025-05-12 17:21] MED LIST changes: -ACET-1753 PO; -BUSP30TA PO; -CELE1CAP27 PO; -CEPH-510 PO; +CEPH500T PO; -CETI-120 PO; -CLIN1CAP70 PO; -CLON-853 PO; +DOCU-94 PO; -DOXY-286 PO; -DULO60CA41 PO; -HYDR-4902 PO; +HYDR25CA PO; +LAM100T PO; -LAMO100T44 PO; -LAMO200T62 PO; -LIDO2SOL26 MT; -MAGIC MT; -METH100035 PO; +MIR30T PO; -OMEP-448; -OMEP20TA PO; -PRED15SO33 PO; -PROP1TAB51 PO; +SENN-58 PO; -SERT-160 PO; -[UNRECOGNIZED DRUG - CODE] PO
--- NOTE | 2025-05-12 18:36 | ED.PDOC ---
Surendra. trauma (HPI) HPI Comments 39 y/o F, with PMHx of DVTs, anxiety, depression, schizophrenia, and seizures presents to the ED for CC of lower extremity. Patient states, she has been experiencing lower left leg pain onset, x4days following walking and hearing a pop. Patient reports, she has difficulty ambulating since, commencement of symptoms. Patient denies fall, injury, or trauma. No other symptoms or modifying factors present at this time. Chief Complaint: Lower Extremity Time Seen by MD: 18:30 Primary Care Provider: UNKNOWN Reviewed notes: Nurses Notes, Medications, Allergies Allergies: Coded Allergies: Bupropion (Verified Allergy, Severe, SEIZURES, 12/23/11) Ephedrine (Verified Allergy, Severe, HIVES, 12/23/11) Haloperidol (Verified Allergy, Severe, JAW LOCK, AIRWAY SWELLING, 12/23/11) Phenobarbital (Verified Allergy, Severe, HIVES, 12/23/11) Theophylline (Verified Allergy, Severe, HIVES, 12/23/11) Ceftriaxone (Verified Allergy, Unknown, HIVES, 02/01/24) Iodine (Verified Allergy, Unknown, 04/20/23) Penicillins (Verified Allergy, Unknown, HIVES, 02/01/24) Piperacillin (Verified Allergy, Unknown, 04/06/21) Tazobactam (Verified Allergy, Unknown, 04/06/21) Home Meds Active Scripts Cephalexin Monohydrate (Cephalexin) 500 Mg Tab, 1 TAB PO BID for 3 Days, #6 TAB 1 Refill Prov:KWESI PARRA RESDIENT 03/05/25 Ibuprofen (Ibuprofen) 800 Mg Tab, 1 TAB PO TID, #30 TAB Prov:NORMA WILKINSON 01/10/23 Reported Medications Hydroxyzine Pamoate (Vistaril) 25 Mg Cap, 100 MG PO DAILY PRN for ANXIETY, CAP 03/04/25 Mirtazapine (Remeron) 30 Mg Tb, 1 TAB PO QPM, #30 TAB 1 Refill 03/04/25 Lamotrigine (LAMICTAL) 100 Mg Tab, 200 MG PO DAILY, TAB 03/04/25 Senna (Senokot) 8.6 Mg Tab, 2 TAB PO BID for constipation, #40 TAB 03/04/25 Docusate Sodium (Colace) 100 Mg Cap, 100 MG PO BID, CAP 03/04/25 Hydrocodone-Acetaminophen (Hydrocodone/Acetaminophen 10-325 mg) 1 Tab Tab 08/03/24 Methocarbamol (Methocarbamol) 750 Mg Tab, 1 TAB PO BID 08/03/24 Ondansetron HCl (Ondansetron) 4 Mg Tab, 4 MG 08/03/24 Potassium Chloride (Potassium Chloride ER) 20 Meq Tab, 1 TAB PO DAILY 07/10/23 Gabapentin (Gabapentin) 600 Mg Tab, 1200 MG PO TID, MG 07/09/23 Furosemide (Lasix) 40 Mg Tab, 40 MG PO DAILY, TAB 05/24/23 Budesonide-Formoterol Fumarate (Budesonide/Formoterol Fum 160-4.5 Mcg/Act) 1 Aer Aer, 1 AER IN BID, AER 04/07/21 Buspirone Hcl (Buspirone Hcl) 15 Mg Tab, 15 MG PO TID for 30 Days 04/07/21 Apixaban Base (ELIQUIS) 5 Mg Tab, 5 MG PO BID, TAB 04/07/21 Propranolol Hcl (Inderal La) 60 Mg Cap, 10 MG PO TID, CAP 04/07/21 Clonazepam (Klonopin) 0.5 Mg Tab, 1 MG PO TID PRN for ANXIETY 12/23/11 Information Source: Patient Mode of Arrival: EMS Severity: Moderate Timing: Days Duration: Since onset Prehospital treatment: None Location: (L) Leg Location of laceration: None Associated signs and symtoms: None Past Medical History PAST MEDICAL HISTORY: Anxiety, Asthma, Depression, Schizophrenia, Seizures Surgical History: Cholecystectomy EGG GRADER History: No Pertinent EGG GRADER History Family History Family History: Reviewed,noncontributory to illness Social History Smoker: Cigarettes, Less Than 1 Pack/Day Alcohol: Denies ETOH Use Drugs: Marijuana Lives In: Home Constitutional: denies: chills, diaphoresis, fatigue, fever, malaise, sweats, weakness, others EENTM: denies: blurred vision, double vision, ear bleeding, ear discharge, ear drainage, ear pain, ear ringing, eye pain, eye redness, hearing loss, mouth pain, mouth swelling, nasal discharge, nose bleeding, nose congestion, nose pain, photophobia, tearing, throat pain, throat swelling, voice changes, others Respiratory: denies: cough, hemoptysis, orthopnea, SOB at rest, shortness of breath, SOB with excertion, stridor, wheezing, others Cardiovascular: denies: chest pain, dizzy spells, diaphoresis, Dyspnea on exertion, edema, irregular heart beat, left arm pain, lightheadedness, palpitations, PND, syncope, others Gastrointestinal: denies: abdomen distended, abdominal pain, blood streaked bowels, constipated, diarrhea, dysphagia, difficulty swallowing, hematemesis, melena, nausea, poor appetite, poor fluid intake, rectal bleeding, rectal pain, vomiting, others Genitourinary: denies: abnormal vagina bleeding, burning, dyspareunia, dysuria, flank pain, frequency, hematuria, incontinence, pain, , vagina discharge, urgency, others Neurological: denies: dizziness, fainting, headache, left sided numbness, left sided weakness, numbness, paresthesia, pre-existing deficit, right sided numbness, right sided weakness, seizure, speech problems, tingling, tremors, weakness, others Musculoskeletal: reports: others (left leg pain); denies: back pain, gout, joint pain, joint swelling, muscle pain, muscle stiffness, neck pain Integumetry: denies: bruises, change in color, change in hair/nails, dryness, laceration, lesions, lumps, rash, wounds, others Allergic/Immunocompromised: denies: Difficulty Healing, Frequent Infections, Hives, Itching, others Hematologic/Lymphatic: denies: anemia, blood clots, easy bleeding, easy bruising, swollen glands, others Endocrine: denies: excessive hunger, excessive sweating, excessive thirst, excessive urination, flushing, intolerance to cold, intolerance to heat, unexplained weight gain, unexplained weight loss, others Psychiatric: denies: anxiety, bipolar disorder, depression, hopeless, panic disorder, schizophrenia, sleepless, suicidal, others All Other Systems: Reviewed and Negative Physical Exam General Appearance: No Apparent Distress, Normal HEENT: Normal ENT Inspection, Pharynx Normal Neck: Full Range of Motion, Non-Tender, Normal, Normal Inspection Respiratory: Chest Non-Tender, Lungs Clear, No Accessory Muscle Use, No Respiratory Distress, Normal Breath Sounds Cardiovascular: No Edema, No Murmur, No Gallop, Normal Peripheral Pulses, Regular Rate/Rhythm Breast Exam: Deferred Gastrointestinal: No Organomegaly, Non Tender, No Pulsatile Mass, Normal Bowel Sounds, Soft Genitalia: Deferred Pelvic: Deferred Rectal: Deferred Extremities: No calf tenderness, Normal capillary refill, Normal inspection, Normal range of motion, Non-tender, No pedal edema Musculoskeletal : Location: Left Extremity Location: Ankle (mild erythema, mild calf tenderness) Apperance: Tenderness Neurologic: Alert, museum librarian II-XII nml as Tested, No Motor Deficits, Normal Affect, Normal Mood, No Sensory Deficits Cerebellar Function: Normal Reflexes: Normal Skin: Dry, Normal Color, Warm Lymphatic: No Adenopathy Was a procedure done? Was a procedure done?: No Differential Diagnosis Multiple Trauma: Other (DVT) X-Ray, Labs, Meds, VS Vital Signs Date Time Temp Pulse Resp B/P (MAP) Pulse Ox O2 Delivery O2 Flow Rate FiO2 05/12/25 21:13 97.9 91 18 149/74 (99) 97 97.9 05/12/25 18:48 97.9 84 18 148/74 (98) 95 97.9 05/12/25 17:42 98.3 97 20 136/89 (105) 100 98.3 05/12/25 17:32 83 Lab Test 05/12/25 19:00 Range/Units White Blood Count 12.8 H 4.4-10.8 10^3/uL Red Blood Count 3.98 L 4.0-5.20 10^6/uL Hemoglobin 11.1 L 12.2-16.2 g/dL Hematocrit 33.9 L 36.0-46.0 % Mean Corpuscular Volume 85.2 80.0-100.0 fL Mean Corpuscular Hemoglobin 27.9 L 28.0-32.0 pg Mean Corpuscular Hemoglobin Concent 32.8 32.0-36.0 g/dL Red Cell Distribution Width 17.5 H 11.8-14.3 % Platelet Count 299 140-450 10^3/uL Mean Platelet Volume 8.2 6.9-10.8 fL Neutrophils (%) (Auto) 80.2 H 37.0-80.0 % Lymphocytes (%) (Auto) 10.9 10.0-50.0 % Monocytes (%) (Auto) 6.3 0.0-12.0 % Eosinophils (%) (Auto) 2.1 0.0-7.0 % Basophils (%) (Auto) 0.5 0.0-2.0 % Neutrophils # (Auto) 10.3 H 1.6-8.6 10 ^3/uL Lymphocytes # (Auto) 1.4 0.4-5.4 10 ^3/uL Monocytes # (Auto) 0.8 0-1.3 10 ^3/uL Eosinophils # (Auto) 0.3 0-0.8 10 ^3/uL Basophils # (Auto) 0.1 0-0.2 10 ^3/uL Nucleated Red Blood Cells 0.0 % Sodium Level 140 136-145 mmol/L Potassium Level 3.9 3.5-5.1 mmol/L Chloride Level 108 H 98-107 mmol/L Carbon Dioxide Level 24 20-31 mmol/L Anion Gap 8 5-15 Blood Urea Nitrogen 16 9-23 mg/dL Creatinine 0.79 0.550-1.02 mg/dL Glomerular Filtration Rate Calc 99 >90 mL/min BUN/Creatinine Ratio 20.3 H 10.0-20.0 Serum Glucose 103 74-106 mg/dL Calcium Level 9.5 8.7-10.4 mg/dL X-Ray, Labs, Meds, VS Comment Imaging: X-rays and CT scans were reviewed and interpreted by this provider, imaging shows no fractures and no pathological disease. Pending radiology review. Laboratory: Labs reviewed and interpreted by this provider. No significant abnormalities noted. Patient has prior medical visits reviewed. Med reconciliation performed Vital signs reviewed Time of 1ST Reevaluation: 19:00 Reevaluation 1ST: Unchanged Patient Education/Counseling: Diagnosis, Treatment, Need For Follow Up (Follow up in the emergency department in the next 24-48 hours if symptoms worsen. It was advised to follow up with your primary care doctor in the next 3-4 days for further evaluation.) Family Education/Counseling: No Family Present Departure 1 Departure Time of Disposition: 21:21 Impression: Primary Impression: Strain of left calf muscle Disposition: HOME / SELF CARE / HOMELESS Condition: Fair Discharged With: Self Critical Care Note Critical Care Time?: No Stability Stability form required: No Heart Score Heart Score: Heart Score Response (Comments) Value History N/A 0 EKG N/A 0 Age N/A 0 Risk Factors N/A 0 Troponin N/A 0 Total 0 I personally scribed for PRINCESS ROBERTS ([email or web address]) on 05/12/25 at 18:36. Electronically submitted by Audrey Garcia ([email or web address]). PRINCESS ROBERTS May 12, 2025 18:36
[2025-05-12 19:27] LABS: Basophils # (auto) 0.1 10 ^3/uL (0-0.2); Basophils % (auto) 0.5 % (0.0-2.0); Eosinophils # (auto) 0.3 10 ^3/uL (0-0.8); Eosinophils % (auto) 2.1 % (0.0-7.0); Hematocrit 33.9 % (36.0-46.0); Hemoglobin 11.1 g/dL (12.2-16.2); Lymphocytes # (auto) 1.4 10 ^3/uL (0.4-5.4); Lymphocytes % (auto) 10.9 % (10.0-50.0); Mean Corpuscular Hemoglobin 27.9 pg (28.0-32.0); Mean Corpuscular Hgb Conc. 32.8 g/dL (32.0-36.0); Mean Corpuscular Volume 85.2 fL (80.0-100.0); Monocytes # (auto) 0.8 10 ^3/uL (0-1.3); Monocytes % (auto) 6.3 % (0.0-12.0); Neutrophils # (auto) 10.3 10 ^3/uL (1.6-8.6); Neutrophils % (auto) 80.2 % (37.0-80.0); Platelet Count (auto) 299 10^3/uL (140-450); Red Blood Cells 3.98 10^6/uL (4.0-5.20); Red Cell Distribution Width 17.5 % (11.8-14.3); White Blood Cell 12.8 10^3/uL (4.4-10.8)
[2025-05-12 19:37] LABS: Anion Gap 8 (5-15); Carbon Dioxide 24 mmol/L (20-31); Potassium 3.9 mmol/L (3.5-5.1); Sodium 140 mmol/L (136-145)
[2025-05-12 19:38] LABS: Calcium 9.5 mg/dL (8.7-10.4)
[2025-05-12 19:43] LABS: BUN/Creatinine Ratio 20.3 (10.0-20.0); Blood Urea Nitrogen 16 mg/dL (9-23); Glucose 103 mg/dL (74-106)
[2025-05-12 19:44] LABS: Chloride 108 mmol/L (98-107)
--- NOTE | 2025-05-12 20:23 | DVH ---
Clinical History: PAIN Comparison: US BILAT LOWER DVT on DOS: 03/04/25 Technique: Duplex Doppler evaluation of the deep venous system of the left lower extremity from the common femor al vein to the popliteal vein including color Doppler and spectral/pulsed waveform analysis was perfo rmed. Findings: The common femoral vein demonstrates appropriate compressibility and waveform variability. There is compressibility/patency of the great saphenous vein at the proximal thigh. The femoral vein demonstrates appropriate compressibility and waveform variability. The deep femoral vein demonstrates appropriate compressibility and waveform variability. The popliteal vein demonstrates appropriate compressibility and waveform variability. There is normal compressibility at the tibioperoneal trunk. Impression: 1. No left deep venous thrombosis. 2. 10.2 X 2.4 X 3.7 CM POPLITEAL FOSSA CYST CONSISTENT WITH A FORD'S CYST.
[2025-05-12 21:13] VITALS: BP 149/74
[2025-05-12 23:00] VITALS: PULSE 86; RESP 18; TEMP 98.2; O2SAT 95
--- NOTE | 2025-05-13 10:44 | ECG ---
[facility] Test Date: 2025-05-12 Test Time: 17:32:14 Pat Name: TRISH SYKES Department: ED Room: Gender: F [employer]: : 1985 Requested By: EMERGENCY EMERGENCY Order Number: [id number] Reading MD: Brayan Melchor Measurements Intervals [place] Rate: 83 P: 36 [place]: 174 QRS: 35 QRSD: 100 T: 26 QT: 373 QTc: 439 Interpretive Statements Sinus rhythm Borderline T wave abnormalities Baseline wander in lead(s) V3,V5,V6 Electronically Signed On 05-15-2025 20:02:25 PDT by Brayan Melchor Please click the below link to view image of tracing.
== END 2025-05-12 23:20 | disposition home or self-care (01) ==
LOC: ER 17:21 → EDBD 17:21 → ER 23:16
DX: S86.112A Strain of other muscle(s) and tendon(s) of posterior muscle group at lower leg level, left leg, initial encounter (principal); F41.9 Anxiety disorder, unspecified; J45.909 Unspecified asthma, uncomplicated; F32.A Depression, unspecified; F20.9 Schizophrenia, unspecified; Z90.49 Acquired absence of other specified parts of digestive tract; F12.90 Cannabis use, unspecified, uncomplicated; F17.210 Nicotine dependence, cigarettes, uncomplicated; Z88.8 Allergy status to other drugs, medicaments and biological substances; Z88.1 Allergy status to other antibiotic agents; Z88.0 Allergy status to penicillin; Z79.899 Other long term (current) drug therapy; Z79.1 Long term (current) use of non-steroidal anti-inflammatories (NSAID); Z79.01 Long term (current) use of anticoagulants; X58.XXXA Exposure to other specified factors, initial encounter; Y93.01 Activity, walking, marching and hiking; Y92.89 Other specified places as the place of occurrence of the external cause; Y99.8 Other external cause status
CPT/HCPCS: 36415; 80048; 85025; 93005; 93971